=== PATIENT | male | born 1950 | race Caucasian/White ===

== ENCOUNTER 2016-12-10 12:28 | Emergency (ER) | payer BC, OTHER ==
[~2016-12-10 12:28] MED LIST: 1-ME1LIQ PO; CITA20TA4 PO; HYDR12.56 PO
[2016-12-10 12:31] VITALS: BP 146/93; PULSE 89; RESP 16; TEMP 98.8; O2SAT 99
[2016-12-10] MEDS ORDERED: ASPI325T PO (12:43)
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
--- NOTE | 2016-12-10 13:42 | RADHPO ---
EXAM DATE/TIME: 12/10/2016 13:28 [facility] COMPARISON: No previous studies available for comparison. INDICATIONS : Left lower leg pain and swelling post fall one week ago. MEDICAL HISTORY : None. SURGICAL HISTORY : None. ENCOUNTER: Initial ACUITY: 1 week PAIN SCORE: 6/10 LOCATION: Left tibia/fibula. FINDINGS: Two views of the left leg demonstrate no fracture or dislocation. Mineralization is within normal arambula its. No soft tissue abnormality or radiopaque foreign body is identified. CONCLUSION: No acute abnormality is identified. Darin Blackwell MD on December 10, 2016 at 13:40 Board Certified Radiologist. This report was verified electronically.
[2016-12-10] MEDS ORDERED: TRAM50TA PO (14:22)
== END 2016-12-10 14:28 | disposition home or self-care (01) ==
LOC: PHEFT 12:28
DX: S80.12XA Contusion of left lower leg, initial encounter (principal); M10.9 Gout, unspecified; Z72.0 Tobacco use; Z79.82 Long term (current) use of aspirin; W18.39XA Other fall on same level, initial encounter; Y93.89 Activity, other specified; Y92.9 Unspecified place or not applicable; Y99.8 Other external cause status; W18.09XA Striking against other object with subsequent fall, initial encounter
CPT/HCPCS: 73590; 99283; E0113

== ENCOUNTER 2017-05-02 23:37 | Inpatient (IN) | payer OTHER ==
[~2017-05-02] VITALS: Ht 177.8 cm; Wt 86.7 kg
[~2017-05-02 23:37] MED LIST changes: -1-ME1LIQ PO; +ASPI325T PO; -CITA20TA4 PO; -HYDR12.56 PO; +TRAM50TA PO
[2017-05-02] MEDS ORDERED: GABA100C4 PO (23:52)
[2017-05-02 23:53] VITALS: BP 151/90; PULSE 83; RESP 14; TEMP 97.8; O2SAT 98
[2017-05-03] VITALS (14 sets, daily range): BP systolic 122–154; BP diastolic 71–89; PULSE 70–92; RESP 12–21; TEMP 97.7–99.7; O2SAT 93–96
--- NOTE | 2017-05-03 00:16 | PD ---
HPI Chief Complaint: Syncope/Near-Syncope Time Seen by Provider: 00:01 Travel History International Travel<30 days: No Contact w/Intl Traveler<30days: No Traveled to known affect area: No History of Present Illness HPI The patient is a 66-year-old male that apparently was drinking beer heavily at [facility]. He does remember falling but apparently he fell and had a syncopal spell. He denies any specific pain anywhere except his mid occiput where he hit his head on concrete when he fell. PFSH Past Medical History Depression: Yes Diminished Hearing: No Gout: Yes (HX OF GOUT R.TOE) Kidney Stones: Yes Immunizations Current: Yes Past Surgical History Other Surgery: Yes (CYST REMOVAL) Social History Alcohol Use: Yes (OCC) Tobacco Use: Yes (3-4 CIGARS PER DAY) Substance Use: Yes (MJ OCC) Allergies-Medications (Allergen,Severity, Reaction): Coded Allergies: No Known Allergies (Verified , 05/02/17) Reported Meds & Prescriptions Reported Meds & Active Scripts Active Reported Gabapentin 100 Mg Cap 100 Mg PO BID Aspirin 325 Mg Tab 325 Mg PO DAILY Review of Systems Except as stated in HPI: all other systems reviewed are Neg Physical Exam Narrative GENERAL: The patient smells of beer but answers questions quickly and appropriately and and is cooperative. His vital signs show blood pressure 151/ 90 but are otherwise normal. The patient does not know where he is. SKIN: Focused skin assessment warm/dry. HEAD: There is a small contusion in the mid occiput without any associated skull deformity.. Normocephalic. Neither raccoon eyes or goodwin sign is present. EYES: Pupils equal and round. No scleral icterus. No injection or drainage. ENT: No nasal bleeding or discharge. Mucous membranes pink and moist. There is no hemotympanum present. NECK: Trachea midline. No JVD. CARDIOVASCULAR: Regular rate and rhythm. No murmur appreciated. RESPIRATORY: No accessory muscle use. Clear to auscultation. Breath sounds equal bilaterally. GASTROINTESTINAL: Abdomen soft, non-tender, nondistended. Hepatic and splenic margins not palpable. MUSCULOSKELETAL: No obvious deformities. No clubbing. No cyanosis. No edema. NEUROLOGICAL: Awake and alert. No obvious cranial nerve deficits. Motor grossly within normal limits. Normal speech. PSYCHIATRIC: Appropriate mood and affect; insight and judgment normal. Data Data Last Documented VS Vital Signs Date Time Temp Pulse Resp B/P (MAP) Pulse Ox O2 Delivery O2 Flow Rate FiO2 05/02/17 23:53 97.8 83 14 151/90 (110) 98 Orders Orders Complete Blood Count With Diff (05/03/17 00:) Comprehensive Metabolic Panel (05/03/17:) Urinalysis - C+S If Indicated (05/03/17 00:) Ct Brain W/O Iv Contrast(Rout) (05/03/17 00:) Drug Screen, Random Urine (05/03/17:) Alcohol (Ethanol) (05/03/17:) Ct Cerv Spine W/O Contrast (05/03/17:) Electrocardiogram (05/03/17:) Magnesium (Mg) (05/03/17:19) Troponin I (05/03/17:) Prothrombin Time / Inr (Pt) (05/03/17:21) Act Partial Throm Time (Ptt) (05/03/17:21) Act Partial Throm Time (Ptt) (05/03/17 00:22) Admit Order (Ed Use Only) (05/03/17 00:28) Labs Laboratory Tests Test 05/03/17: MDM Medical Decision Making Medical Screen Exam Complete: Yes Emergency Medical Condition: Yes Medical Record Reviewed: Yes Interpretation(s) The CT brain shows left orbital frontal and right cerebellar contusion along with subarachnoid hemorrhage and small left-sided subdural hematoma. Also noted is a nondisplaced fracture of the occipital bone to the right of midline. There is no evidence of herniation or mass effect. Differential Diagnosis Alcohol intoxication, concussion, cardiac syncope Narrative Course I discussed the patient with Dr. Birmingham, the patient is transferred to the ICU at [facility] and admitted to him. The patient has multiple contusions along with nondisplaced fracture of the simple bone, small subarachnoid hemorrhage and small left-sided subdural hematoma. Physician Communication Physician Communication I discussed the patient with Dr. Birmingham, the patient is admitted to him and the patient will go to the [facility] at [place]. Diagnosis Primary Impression: Subarachnoid hemorrhage after traumatic injury without open intracranial wound , with prolonged loss of consciousness and return to pre-existing level of consciousness Additional Impressions: Cerebral contusion Subdural hematoma Admitting Information Admitting Physician Requests: Admit Keyur Tan MD May 03, 2017 00:16
--- NOTE | 2017-05-03 00:43 | RADRPT ---
EXAM DATE/TIME: 05/03/2017 00:14 [facility] COMPARISON: No previous studies available for comparison. INDICATIONS : Trauma, fall. RADIATION DOSE: 62.64 CTDIvol (mGy) MEDICAL HISTORY : Non-responsive. SURGICAL HISTORY : Non-responsive. ENCOUNTER: Initial ACUITY: 1 day PAIN SCALE: 8/10 LOCATION: cranial TECHNIQUE: Multiple contiguous axial images were obtained of the head. Using automated exposure control and adj ustment of the mA and/or kV according to patient size, radiation dose was kept as low as reasonably a chievable to obtain optimal diagnostic quality images. DICOM format image data is available electro nically for review and comparison. FINDINGS: There is left orbital frontal contusion with subarachnoid hemorrhage in the left side of the sylvian fissure. Small subdural hematomas present left frontal region measuring 5 mm. There is a contusion in the right cerebellar hemisphere measuring 10 mm. Nondisplaced fracture of the occipital bone to the right of midline is present. There are no signs of herniation. CONCLUSION: 1. Left orbital frontal and right cerebellar contusion 2. Subarachnoid hemorrhage 3. Small left-sided subdural hematoma Phillip Torres MD on May 03, 2017 at 0:23 Board Certified Radiologist. This report was verified electronically.
--- NOTE | 2017-05-03 00:48 | RADRPT ---
EXAM DATE/TIME: 05/03/2017 00:14 [facility] COMPARISON: No previous studies available for comparison. INDICATIONS : Trauma, fall. RADIATION DOSE: 25.64 CTDIvol (mGy) MEDICAL HISTORY : Non-responsive. SURGICAL HISTORY : Non-responsive. ENCOUNTER: Initial ACUITY: 1 day PAIN SCALE: 0/10 LOCATION: neck TECHNIQUE: Volumetric scanning of the cervical spine was performed. Multiplanar reconstructions in the sagittal, coronal and oblique axial planes were performed. Using automated exposure control and adjustment o f the mA and/or kV according to patient size, radiation dose was kept as low as reasonably achievable to obtain optimal diagnostic quality images. DICOM format image data is available electronically f or review and comparison. FINDINGS: Sagittal images demonstrate normal vertebral body alignment and curvature. The odontoid is intact. Th e occipital condyles and lateral masses of C1 are intact. Axial images were performed from C2-C3 to C7-T1. There is multilevel disc space narrowing and marginal osteophyte formation maximal at C4-C5. There is osteorathritis involving the atlantoaxial joint with sclerosis and osteophyte formation. Non displaced fracture of the right occipital bone is identified C2-C3: There is osteophytic ridging along the posterior aspect of vertebral body. A small central protrusion is present impinging not significantly impinging on the thecal sac. The neural foramina are clear bi laterally. C3-C4: There is uncovertebral joint hypertrophy on left side. There is mild left sided neural foraminal narr owing. There is no significant spinal canal stenosis. C4-C5: There is osteophytic ridging along the posterior aspect of vertebral body. There is uncovertebral ayla nt hypertrophy on the right side. There is severe neural foraminal narrowing on the right. C5-C6: There is mild diffuse annular bulge of the disc. The neural foramina are clear bilaterally. There is no significant spinal canal stenosis. C6-C7: There is osteophytic ridging asymmetric to the left. There is no significant spinal canal stenosis. T he neural foramina are clear bilaterally. C7-T1: There is no evidence of disc protrusion or spinal canal stenosis. There is mild facet arthritis bilat erally. CONCLUSION: 1. Moderate degenerative changes as described above. There is no evidence of acute fracture. 2. Nondisplaced occipital bone fracture Phillip Torres MD on May 03, 2017 at 0:42 Board Certified Radiologist. This report was verified electronically.
[2017-05-03 00:51] LABS: CHLORIDE 103 MEQ/L (98-107); SODIUM (NA) 140 MEQ/L (136-145)
[2017-05-03 00:53] LABS: MAGNESIUM 2.4 MG/DL (1.5-2.5)
[2017-05-03 00:54] LABS: CALCIUM 8.8 MG/DL (8.5-10.1)
[2017-05-03 00:55] LABS: BICARBONATE 26.5 MEQ/L (21.0-32.0); BLOOD UREA NITROGEN 15 MG/DL (7-18); GLUCOSE,RANDOM 94 MG/DL (74-106)
[2017-05-03 00:57] LABS: BASOPHIL # 0.1 TH/MM3 (0-0.2); BASOPHIL % 0.7 % (0.0-2.0); EOSINOPHIL # 0.1 TH/MM3 (0-0.4); EOSINOPHIL % 1.3 % (0.0-4.0); HEMATOCRIT 47.6 % (39.0-51.0); HEMOGLOBIN 16.3 GM/DL (13.0-17.0); LYMPH % 31.9 % (9.0-44.0); LYMPHOCYTE # 2.8 TH/MM3 (1.0-4.8); MEAN CORPUSCULAR HEMOGLOBIN 32.3 PG (27.0-34.0); MEAN CORPUSCULAR HGB CONC 34.3 % (32.0-36.0); MEAN PLATELET VOLUME 10.4 FL (7.0-11.0); MONOCYTE # 0.7 TH/MM3 (0-0.9); NEUT % 58.1 % (16.0-70.0); PLATELET COUNT 186 TH/MM3 (150-450); RED BLOOD COUNT 5.06 MIL/MM3 (4.50-5.90); WHITE BLOOD COUNT 8.7 TH/MM3 (4.0-11.0)
[2017-05-03 00:58] LABS: ALT (GPT) 34 U/L (12-78); AST (GOT) 19 U/L (15-37); GLOMERULAR FILTRATION RATE 67 ML/MIN (>89)
[2017-05-03 00:59] LABS: TOTAL BILIRUBIN ADULT 0.6 MG/DL (0.2-1.0); TOTAL PROTEIN 7.4 GM/DL (6.4-8.2)
[2017-05-03 01:00] LABS: INTERNATIONAL NORMALIZED RATIO 1.1 RATIO; PROTHROMBIN TIME - PATIENT 11.7 SEC (9.8-11.6)
[2017-05-03 01:01] LABS: ALKALINE PHOSPHATASE 109 U/L (45-117); TROPONIN I LESS THAN 0.02 NG/ML (0.02-0.05)
[2017-05-03] MEDS ORDERED: LORazepam 2 MG/ML VIAL IV PUSH PRN (02:00)
[2017-05-03] MEDS ORDERED: MAGNESIUM HYDROXIDE SUSP 30 ML CUP PO PRN (02:00)
[2017-05-03] MEDS ORDERED: MENTHOL LOZENGE BUCCAL PRN (02:00)
[2017-05-03] MEDS ORDERED: MAGNESIUM SULFATE INJ 2 GM in SODIUM CHLORIDE 0.9% INJ 100 ML IV PRN (02:00)
[2017-05-03] MEDS ORDERED: PROMETHAZINE INJ 25 MG/ML VIAL IM PRN (02:00)
[2017-05-03] MEDS ORDERED: SODIUM CHLORIDE 0.9% FLUSH 10 ML FLUSH IV FLUSH PRN (02:00)
[2017-05-03] MEDS ORDERED: ALUMINUM/MAGNESIUM/SIMETH 30 ML CUP PO PRN (02:00)
[2017-05-03] MEDS ORDERED: ZOLPIDEM TARTRATE 5 MG TAB PO PRN (02:00)
[2017-05-03] MEDS ORDERED: RESP: ALBUTEROL 2.5 MG/3 ML NEB (PRN) NEB (02:00)
[2017-05-03] MEDS ORDERED: POTASSIUM CHLOR 20 MEQ PREMIX 100 ML IV PRN (02:00)
[2017-05-03] MEDS ORDERED: CALCIUM GLUCONATE INJ 1 GM in SODIUM CHLORIDE 0.9% INJ 100 ML IV PRN (02:00)
[2017-05-03] MEDS ORDERED: POTASSIUM CHLORIDE 10 MEQ CONTROLLED RELEASE TAB PO ONE (02:15)
[2017-05-03] MEDS: ACETAMINOPHEN/HYDROcodone 325 MG/10 MG TAB PO PRN ×2 (02:21→21:33)
[2017-05-03] MEDS: ONDANSETRON HCL 4 MG/2 ML VIAL IV PUSH PRN (02:27)
[2017-05-03] MEDS: MORPHINE SULFATE 4 MG/ML INJ IV PUSH PRN ×3 (05:08→18:51)
[2017-05-03] MEDS: PANTOPRAZOLE SOD 40 MG DELAYED RELEASE TAB PO SCH (08:58)
[2017-05-03] MEDS: GABAPENTIN 100 MG CAP PO SCH ×2 (08:58→21:23)
[2017-05-03] MEDS: levETIRAcetam 500 MG TAB PO SCH ×2 (08:58→21:23)
[2017-05-03] MEDS: DOCUSATE SODIUM 100 MG CAP PO SCH ×2 (08:58→21:00)
[2017-05-03] MEDS: SODIUM CHLORIDE 0.9% FLUSH 10 ML FLUSH IV FLUSH SCH ×2 (09:00→21:23)
--- NOTE | 2017-05-03 10:00 | RADRPT ---
EXAM DATE/TIME: 05/03/2017 09:29 [facility] COMPARISON: CT BRAIN W/O CONTRAST, May 03, 2017, 0:14. INDICATIONS : Follow up for bleed. RADIATION DOSE: 56.35 CTDIvol (mGy) MEDICAL HISTORY : Hypertension. SURGICAL HISTORY : None. ENCOUNTER: Subsequent ACUITY: 1 day PAIN SCALE: 0/10 LOCATION: cranial TECHNIQUE: Multiple contiguous axial images were obtained of the head. Using automated exposure control and adj ustment of the mA and/or kV according to patient size, radiation dose was kept as low as reasonably a chievable to obtain optimal diagnostic quality images. DICOM format image data is available electro nically for review and comparison. FINDINGS: Today's exam is compared to the prior study. There continues to be a focal hemorrhagic contusion in t he posterior right cerebellar hemisphere. This is stable compared to the prior exam. There appears to be a small right-sided subdural hematoma in the right posterior fossa adjacent to the right temporal bone. This is stable compared to the prior study. The fourth ventricle is normal in size and midline in position. No significant change with the left-sided subdural hematoma along the left frontal lobe with a 6 mm separation. There continues to be hemorrhagic contusions involving the left frontal and left parietal lobe. There is evidence of subarachnoid hemorrhage which appears to be stable. There ap pears to be a new focal hemorrhagic contusion in the left insula. Otherwise, no other new areas of he morrhage are demonstrated. The ventricles are normal in size and midline in position. The calvarium i s stable. CONCLUSION: 1. New small hemorrhagic contusion is now seen in the left insula area. 2. Otherwise, no other new or significant changes compared to the prior exam of 05/03/2017. 3. Stable hemorrhagic contusions in the posterior right cerebellar hemisphere, left frontal lobe and left parietal area. 4. Stable left frontal subdural hematoma with 6 mm of separation. 5. No significant mass effect or midline shift. Keyur Jimenez MD on May 03, 2017 at 9:53 Board Certified Radiologist. This report was verified electronically.
[2017-05-03 12:14] LABS: BILIRUBIN, URINE NEG (NEG); BLOOD, URINE NEG (NEG); GLUCOSE,URINE 70 mg/dL (NEG); KETONE, URINE 80 mg/dL (NEG); MUCUS URINE MOD /lpf (OCC); NITRITE,URINE NEG (NEG); PH, URINE 5.5 (5.0-8.5); SQUAMOUS EPITHELIAL CELL URINE 1 /hpf (0-5); URINE COLOR YELLOW (YELLW/STRAW); URINE LEUKOCYTE ESTERASE NEG (NEG)
--- NOTE | 2017-05-03 12:33 | EKG ---
Date Performed: 05/03/2017 Time Performed: 00:35:46 PTAGE: 66 years EKG: Normal Sinus rhythm Left atrial abnormality Baseline artifact obscures the ST segments in the lateral leads, so unable t o determine if it is unchanged from the prior tracing ABNORMAL ECG PREVIOUS TRACING : 05/08/2014 22.03 Otherwise, the other leads are unchanged from the prior tra cing. DOCTOR: Emeterio Melchor Interpretating Date/Time 05/03/2017 12:31:58
--- NOTE | 2017-05-03 14:30 | RADRPT ---
EXAM DATE/TIME: 05/03/2017 13:24 [facility] COMPARISON: No previous studies available for comparison. INDICATIONS : Syncope. MEDICAL HISTORY : Hypertension. Renal calculi. Syncope. Gout. Depression. Substance use. Tobacco use. SURGICAL HISTORY : Cyst removal. ENCOUNTER: Initial ACUITY: 1 day PAIN SCORE: 0/10 LOCATION: Bilateral neck PEAK SYSTOLIC VELOCITIES (cm/sec): ICA/CCA RATIO: Right: 0.6 Left: 0.6 ICA: Right: 75 Left: 78 CCA: Right: 118 Left: 124 ECA: Right: 98 Left: 98 VERTEBRAL: Right: 58 antegrade Left: 54 antegrade Elevated flow velocities and ICA/CCA ratios have been found to correlate with increased degrees of vessel stenosis, calculated as percentage of diameter relative to a normal segment of distal ICA/CCA FINDINGS: RIGHT CAROTID: No significant stenosis is visualized. The waveforms are within normal limits. LEFT CAROTID: No significant stenosis is visualized. The waveforms are within normal limits. VERTEBRAL ARTERIES: Antegrade flow is seen in both vertebral arteries. MISCELLANEOUS: None. CONCLUSION: Normal examination for a patient of this age. Keyur Jimenez MD on May 03, 2017 at 14:28 Board Certified Radiologist. This report was verified electronically.
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
--- NOTE | 2017-05-03 17:56 | ECHRPT ---
Indication: Syncope and collapse CONCLUSIONS The left ventricular systolic function is normal with an estimated ejection fraction in the range of 55-60%. Wall thickness is measured at the upper limits of normal. Normal left ventricular size. BP: 122 / 71 HR: 82 Rhythm: Sinus MEASUREMENTS (Male / Female) Normal Values Technical Quality:Good 2D ECHO LV Diastolic Diameter PLAX 4.6 cm 4.2 - 5.9 / 3.9 - 5.3 cm LV Systolic Diameter PLAX 3.4 cm IVS Diastolic Thickness 1.0 cm 0.6 - 1.0 / 0.6 - 0.9 cm LVPW Diastolic Thickness 1.0 cm 0.6 - 1.0 / 0.6 - 0.9 cm LV Relative Wall Thickness 0.4 LVOT Diameter 2.1 cm M-MODE Aortic Root Diameter MM 3.2 cm LA Systolic Diameter MM 3.6 cm LA Ao Ratio MM 1.1 AV Cusp Separation MM 2.3 cm DOPPLER AV Peak Velocity 160.0 cm/s AV Peak Gradient 10.2 mmHg LVOT Peak Velocity 88.8 cm/s LVOT Peak Gradient 3.2 mmHg AV Area Cont Eq pk 1.9 cm Mitral E Point Velocity 79.0 cm/s Mitral A Point Velocity 76.0 cm/s Mitral E to A Ratio 1.0 LV E' Lateral Velocity 7.5 cm/s Mitral E to LV E' Lateral Ratio 10.5 LV E' Septal Velocity 6.0 cm/s Mitral E to LV E' Septal Ratio 13.1 PV Peak Velocity 117.0 cm/s PV Peak Gradient 5.5 mmHg FINDINGS LEFT VENTRICLE The left ventricular systolic function is normal with an estimated ejection fraction in the range of 55-60%. Wall thickness is measured at the upper limits of normal. Normal left ventricular size. RIGHT VENTRICLE Normal right ventricular size and systolic function. LEFT ATRIUM The left atrial size is normal. RIGHT ATRIUM The right atrial size is normal. ATRIAL SEPTUM Normal atrial septal thickness without atrial level shunting by limited color doppler interrogation. AORTA The aortic root and proximal ascending aorta are normal in size on limited imaging. MITRAL VALVE Structurally normal mitral valve. No mitral valve stenosis or regurgitation. AORTIC VALVE Trileaflet aortic valve. No aortic valve stenosis or regurgitation. TRICUSPID VALVE Structurally normal tricuspid valve. No tricuspid valve stenosis or regurgitation. PULMONARY VALVE The pulmonary valve is not well visualized. VESSELS The inferior vena cava is normal in size. PERICARDIUM No pericardial effusion. Mauricio Adam MD, FACC (Electronically Signed) Final Date:03 May 2017 17:56
[2017-05-03] MEDS: BACITRACIN TOP OINT 15 GM TUBE TOP SCH (21:24)
[2017-05-04] VITALS (11 sets, daily range): BP systolic 127–165; BP diastolic 65–79; PULSE 58–78; RESP 11–17; TEMP 98.2–98.6; O2SAT 92–96
[2017-05-04] MEDS: ACETAMINOPHEN/HYDROcodone 325 MG/10 MG TAB PO PRN ×2 (04:49→22:20)
[2017-05-04 05:08] LABS: HEMATOCRIT 46.7 % (39.0-51.0); HEMOGLOBIN 16.1 GM/DL (13.0-17.0); MEAN CELL VOLUME 94.1 FL (80.0-100.0); MEAN CORPUSCULAR HEMOGLOBIN 32.5 PG (27.0-34.0); MEAN CORPUSCULAR HGB CONC 34.6 % (32.0-36.0); MEAN PLATELET VOLUME 9.8 FL (7.0-11.0); PLATELET COUNT 174 TH/MM3 (150-450); RED BLOOD COUNT 4.96 MIL/MM3 (4.50-5.90); RED CELL DISTRIBUTION WIDTH 13.8 % (11.6-17.2); WHITE BLOOD COUNT 13.4 TH/MM3 (4.0-11.0)
[2017-05-04 05:30] LABS: BICARBONATE 26.6 MEQ/L (21.0-32.0); CALCIUM 8.7 MG/DL (8.5-10.1); CREATININE 0.98 MG/DL (0.60-1.30)
[2017-05-04] MEDS: levETIRAcetam 500 MG TAB PO SCH ×2 (08:42→22:19)
[2017-05-04] MEDS: DOCUSATE SODIUM 100 MG CAP PO SCH ×2 (08:42→22:19)
[2017-05-04] MEDS: SODIUM CHLORIDE 0.9% FLUSH 10 ML FLUSH IV FLUSH SCH ×2 (08:43→22:19)
[2017-05-04] MEDS: GABAPENTIN 100 MG CAP PO SCH ×2 (08:43→22:20)
[2017-05-04] MEDS: PANTOPRAZOLE SOD 40 MG DELAYED RELEASE TAB PO SCH (08:43)
[2017-05-04] MEDS: BACITRACIN TOP OINT 15 GM TUBE TOP SCH ×2 (08:50→22:20)
--- NOTE | 2017-05-04 09:06 | HHI.NSPN ---
(Marc Wilhelm) History Chief Complaint: No complaints. TBI after syncopal episode. (Marc Wilhelm) Interval History 66-year-old gentleman who presented to [facility] emergency room apparently he was drinking beer and relates that he passed out and fell and struck his head on concrete floor. Complains of headache although at this point denies any nausea or vomiting, double vision, or blurred vision. Chronic neck discomfort which is not worse. CT scan of the head obtained initially around midnight ratios the right small cerebellar hemisphere contusion along with multiple left frontal polar area contusions and traumatic subarachnoid hemorrhage in the frontal aspect and lateral Sylvian fissure aspect. He also has a nondisplaced right occipital bone fracture. CT of the cervical spine reveals extensive degenerate changes without any fractures. He was transfer to [facility] and has been monitored and neurologically remained stable. A followup CT scan this morning reveals progression of the contusions involving the left frontal lobe along with a right cerebellar hemisphere and left the insula with a stable left frontal polar 6 mm subdural without any mass effect or midline shift. 05/04: Pt awake and alert. Denies headache, nausea, vomiting, chest pain, sob , weakness. Pt agitated this morning. Pt and states he didn't drink enough to pass out and that he has had 1 near syncopal episode and 2 syncopal episodes in the last year and has had evaluation at [facility] in [place] and states nothing was found although doesn't recall seeing a Cheese Cutter and states he never followed up with anyone. He states he doesn't see a pcp. (Marc Wilhelm) Review of Systems General: Negative for: fever, chills, insomnia Respiratory: Negative for: shortness of breath, cough, sputum Cardiovascular: Negative for: chest pain Gastrointestinal: Negative for: nausea, vomitting, diarrhea, constipation ( Marc Wilhelm) Exam Results Vital Signs Date Time Temp Pulse Resp B/P (MAP) Pulse Ox O2 Delivery O2 Flow Rate FiO2 05/04/17 06:00 73 1020/17 04:00 98.6 14 165/77 (106) 95 05/03/17 19:58 21 05/03/17 19:00 Room Air Intake and Output 05/04/17 05/04/17 05/05/17 08:00 16:00 00:00 Intake Total 120 ml Output Total 400 ml Balance -280 ml (Marc Wilhelm) Physical Examination Resp: CTA bilaterally Heart: NSR no murmurs Abd: Soft positive bs skin: No cyanosis or erythema Muscle: Moves all 4 extremities symmetrically 5/5 strength. Neuro: Pt awake and alert. Pupils 3mm bilaterally. Speech clear and appropriate. Follows commands well. Sensation intact to light touch in face and extremities. EOMs intact. (Marc Wilhelm) Lab, Micro, Other Results Last Impressions Head CT 05/03/17 0900 Signed Impressions: Service Date/Time: April 09:29 - CONCLUSION: 1. New small hemorrhagic contusion is now seen in the left insula area. 2. Otherwise, no other new or significant changes compared to the prior exam of 05/03/2017. 3. Stable hemorrhagic contusions in the posterior right cerebellar hemisphere, left frontal lobe and left parietal area. 4. Stable left frontal subdural hematoma with 6 mm of separation. 5. No significant mass effect or midline shift. Keyur Jimenez MD Cervical Spine CT 05/03/17 0001 Signed Impressions: Service Date/Time: April 00:14 - CONCLUSION: 1. Moderate degenerative changes as described above. There is no evidence of acute fracture. 2. Nondisplaced occipital bone fracture Phillip Torres MD Carotid Artery Ultrasound 05/03/17 0000 Signed Impressions: Service Date/Time: April 13:24 - CONCLUSION: Normal examination for a patient of this age. Keyur Jimenez MD Laboratory Tests Test 05/04/17 04:42 White Blood Count 13.4 TH/MM3 Red Blood Count 4.96 MIL/MM3 Hemoglobin 16.1 GM/DL Hematocrit 46.7 % Mean Corpuscular Volume 94.1 FL Mean Corpuscular Hemoglobin 32.5 PG Mean Corpuscular Hemoglobin Concent 34.6 % Red Cell Distribution Width 13.8 % Platelet Count 174 TH/MM3 Mean Platelet Volume 9.8 FL Blood Urea Nitrogen 14 MG/DL Creatinine 0.98 MG/DL Random Glucose 115 MG/DL Calcium Level 8.7 MG/DL Sodium Level 138 MEQ/L Potassium Level 4.1 MEQ/L Chloride Level 105 MEQ/L Carbon Dioxide Level 26.6 MEQ/L Anion Gap 6 MEQ/L Estimat Glomerular Filtration Rate 77 ML/MIN (Marc Wilhelm) Medical Decision Making Impression and Plan 1. 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 There is a nondisplaced right occipital skull bone fracture also. There is a slight progression of these contusions as a hemorrhage in the followup CT scan but again without mass effect. 2. It us unclear whether he had a near-syncopal episode or he fell because of the intoxication and then suffered from this traumatic brain injury. Pts states he has had 1 near syncopal episode and 2 syncopal episodes. She states he was evaluated before at [facility] and had a workup but nothing was found per pt and his . She is requesting a Cardiology evaluation. PLAN Discussed with pt and extensively. We have ordered a cardiac echo, carotid ultrasound and a medical consult. We will also consult Cardiology. We will continue with Neuro checks. (Marc Wilhelm) Attending Statement The exam, history, and the medical decision-making described in the above note were completed with the assistance of the mid-level provider. I reviewed and agree with the findings presented. I attest that I had a [id number] encounter with the patient on the same day, and personally performed and documented my assessment and findings in the medical record. Less confused today and more interactive according to the . She is concerned about recurrent syncopal episodes although also relates to me this always happens when he combines alcohol with marijuana use. We will consult cardiology for their opinion. Increase activity status as tolerated with physical therapy safety evaluation. (Wil Birmingham MD) Marc Wilhelm May 04, 2017 09:06 Wil Birmingham MD May 04, 2017 10:02
--- NOTE | 2017-05-04 10:41 | PD.CONS ---
HPI Consult Requested By Primary Care Physician No Primary Care Physician History of Present Illness 66-year-old M who presented to [facility] emergency room after a syncopal episode. Patient does not rememeber event, but according to chart he was drinking beer and passed out and struck his head on concrete floor. CT scan of the head obtained showed a right small cerebellar hemisphere contusion along with multiple left frontal polar area contusions and traumatic subarachnoid hemorrhage in the frontal aspect and lateral Sylvian fissure aspect. He also had a nondisplaced right occipital bone fracture. He was transfer to [facility] Int[facility]. A followup CT scan this morning reveals progression of the contusions involving the left frontal lobe along with a right cerebellar hemisphere and left the insula with a stable left frontal polar 6 mm subdural without any mass effect or midline shift. Cardiology consulted for syncope evalaution. HE denies chest pain, palpitations , PND, leg swelling. He was admited on [place] ~4-5months ago with a similar episode. Cardiac work up at that time negative. Review of Systems Consitutional: DENIES: Fatigue, Fever, Chills, Weight gain, Weight loss Eyes: DENIES: Amaurosis Fugax, Change in vision HEENT: DENIES: Lightheadedness, Change in hearing Respiratory: DENIES: See HPI, Cough, Snoring, Shortness of breath, Wheezing, Sputum production Cardiovascular: DENIES: See HPI, Chest pain, Palpitations, Syncope, Tachycardia Gastrointestinal: DENIES: Nausea, Vomiting, Change in bowel habits, Reflux, Bloody stools, Melena Genitourinary: DENIES: Urinary incontinence, Difficulty voiding Integumentary: DENIES: Rash Neurologic: DENIES: Tingling or numbness, Memory problems, Poor Balance, Stroke symptoms Musculoskeletal: DENIES: Joint pain, Muscle pain, Limited range of motion, Back pain Psychiatric: DENIES: Anxiety, Depression, Sleep disturbances Hematologic: DENIES: Bruising tendencies, Bleeding tendencies Endocrine: DENIES: Weight gain, Weight loss, Thyroid disease Past Family Social History Allergies: Coded Allergies: No Known Allergies (Verified , 05/02/17) Past Medical History 1. Depression 2. Gout 3. Kidney stones. Reported Medications Reported Meds & Active Scripts Active Reported Gabapentin 100 Mg Cap 100 Mg PO BID Aspirin 325 Mg Tab 325 Mg PO DAILY Active Ordered Medications Current Medications Medications (Trade) Dose Ordered Sig/Mayra Route Start Time Stop Time Status Last Admin (NS Flush) 2 ml UNSCH PRN IV FLUSH 05/03/17 02:00 (NS Flush) 2 ml BID IV FLUSH 05/03/17 09:00 05/04/17 08:43 (Keppra) 500 mg Q12H PO 05/03/17 09:00 05/04/17 08:42 (Ativan Inj) 1 mg Q1H PRN IV PUSH 05/03/17 02:00 (Colace) 100 mg BID PO 05/03/17 09:00 05/04/17 08:42 (Milk Of Magnesia Liq) 30 ml DAILY PRN PO 05/03/17 02:00 (Mag-Al Plus Susp Liq) 30 ml Q6H PRN PO 05/03/17 02:00 (Protonix) 40 mg DAILY PO 05/03/17 09:00 05/04/17 08:43 (Zofran Inj) 4 mg Q6H PRN IV PUSH 05/03/17 02:00 05/03/17 02:27 (Phenergan Inj) 25 mg Q4H PRN IM 05/03/17 02:00 05/03/17 05:11 Calcium Gluconate 1 gm/Sodium Chloride 110 ml @ 110 mls/hr UNSCH PRN IV 05/03/17 02:00 Potassium Chloride 100 ml @ 50 mls/hr UNSCH PRN IV 05/03/17 02:00 Magnesium Sulfate 2 gm/Sodium Chloride 104 ml @ 100 mls/hr UNSCH PRN IV 05/03/17 02:00 (Traer 10-325 Mg) 1 tab Q4H PRN PO 05/03/17 02:00 05/03/17 02:21 (Traer 10-325 Mg) 2 tab Q4H PRN PO 05/03/17 02:00 05/04/17 04:49 (Morphine Inj) 2 mg Q2H PRN IV PUSH 05/03/17 02:00 05/03/17 18:51 (Trandate Inj) 10 mg Q1H PRN IV PUSH 05/03/17 02:00 (Catapres) 0.1 mg Q6H PRN PO 05/03/17 02:00 (Tylenol) 650 mg Q4H PRN PO 05/03/17 02:00 (Baciguent Oint) 1 applic BID TOP 05/03/17 09:00 05/04/17 08:50 (Augusta Chasidy) 1 lozenge UNSCH PRN BUCCAL 05/03/17 02:00 (Ambien) 5 mg HS PRN PO 05/03/17 02:00 (Albuterol Neb) 2.5 mg Q4HR NEB PRN NEB 05/03/17 02:00 Nicardipine HCl 25 mg/Sodium Chloride 250 ml @ 50 mls/hr TITRATE PRN IV 05/03/17 02:00 (Neurontin) 100 mg BID PO 05/03/17 09:00 05/04/17 08:43 Family History Positive for stroke in the father no history of cancer. Social History He is , he admits to drinking two beers on the week days and about four to five beers on the weekend per day. He smokes three to four cigars per day and marijuana on occasional basis. Physical Exam Vital Signs Vital Signs Date Time Temp Pulse Resp B/P (MAP) Pulse Ox O2 Delivery O2 Flow Rate FiO2 05/04/17 10:00 70 05/04/17 08:00 98.3 69 15 136/74 (94) 92 05/04/17 08:00 69 05/04/17 07:00 93 Room Air 05/04/17 06:00 73 05/04/17 04:00 58 05/04/17 04:00 98.6 58 14 165/77 (106) 95 05/04/17 02:00 71 05/04/17 00:00 98.4 78 16 127/74 (91) 95 05/04/17 00:00 72 05/03/17 22:00 70 05/03/17 20:00 98.3 72 17 149/72 (97) 96 05/03/17 20:00 72 05/03/17 19:58 96 21 05/03/17 19:00 95 Room Air 05/03/17 18:00 73 05/03/17 16:00 72 05/03/17 16:00 99.7 72 12 135/77 (96) 93 05/03/17 14:00 73 05/03/17 12:00 82 05/03/17 12:00 98.2 82 12 122/71 (88) 93 Physical Exam GENERAL: Well-nourished, well-developed patient. SKIN: Warm and dry. HEAD: Normocephalic. EYES: No scleral icterus. No injection or drainage. NECK: Supple, trachea midline. No JVD or lymphadenopathy. CARDIOVASCULAR: Regular rate and rhythm without murmurs, gallops, or rubs. RESPIRATORY: Breath sounds equal bilaterally. No accessory muscle use. GASTROINTESTINAL: Abdomen soft, non-tender, nondistended. EXTREMITIES: No cyanosis, or edema. NEUROLOGICAL: Awake, alert, and oriented x 3. Non-focal. Laboratory Laboratory Tests Test 05/04/17 04:42 White Blood Count 13.4 Red Blood Count 4.96 Hemoglobin 16.1 Hematocrit 46.7 Mean Corpuscular Volume 94.1 Mean Corpuscular Hemoglobin 32.5 Mean Corpuscular Hemoglobin Concent 34.6 Red Cell Distribution Width 13.8 Platelet Count 174 Mean Platelet Volume 9.8 Blood Urea Nitrogen 14 Creatinine 0.98 Random Glucose 115 Calcium Level 8.7 Sodium Level 138 Potassium Level 4.1 Chloride Level 105 Carbon Dioxide Level 26.6 Anion Gap 6 Estimat Glomerular Filtration Rate 77 Result Diagram: 05/04/172 05/04/17 0442 Imaging Last Impressions Head CT 05/03/17 0900 Signed Impressions: Service Date/Time: April 09:29 - CONCLUSION: 1. New small hemorrhagic contusion is now seen in the left insula area. 2. Otherwise, no other new or significant changes compared to the prior exam of 05/03/2017. 3. Stable hemorrhagic contusions in the posterior right cerebellar hemisphere, left frontal lobe and left parietal area. 4. Stable left frontal subdural hematoma with 6 mm of separation. 5. No significant mass effect or midline shift. Keyur Jimenez MD Cervical Spine CT 05/03/17 0001 Signed Impressions: Service Date/Time: April 00:14 - CONCLUSION: 1. Moderate degenerative changes as described above. There is no evidence of acute fracture. 2. Nondisplaced occipital bone fracture Phillip Torres MD Carotid Artery Ultrasound 05/03/17 0000 Signed Impressions: Service Date/Time: April 13:24 - CONCLUSION: Normal examination for a patient of this age. Keyur Jimenez MD Assessment and Plan Problem List: (1) Syncope ICD Codes: R55 - Syncope and collapse Plan: 66 y/o M admitted with syncope sustaining head trauma. Unclear if syncopal episode was due to alcohol the intoxication, neuro or CV. He was evaluated in [facility] in [place] and had a negative cardiac workup. He remains afebrile, hemodynamically stable with no CV complaints. EKG & Telemetry no vidya-tachyarrhythmias. Echocardiogram unremarkable. Recommendations: 1. Medical management for CAD risk factors 2. Lexiscan stress test, if negative d/c home with cardiology follow up and 24hr Holter monitor (2) Traumatic hematoma of left lower leg ICD Codes: S80.12XA - Contusion of left lower leg, initial encounter Status: Acute (3) Cerebral contusion ICD Codes: S06.339A - Contusion and laceration of cerebrum, unspecified, with loss of consciousness of unspecified duration, initial encounter Status: Acute (4) Subdural hematoma ICD Codes: I62.00 - Nontraumatic subdural hemorrhage, unspecified Status: Acute (5) Subarachnoid hemorrhage after traumatic injury without open intracranial wound, with prolonged lossof consciousness and return to pre-existing level of consciousness ICD Codes: S06.6X9A - Traumatic subarachnoid hemorrhage with loss of consciousness of unspecified duration, initial encounter Status: Acute Bladimir Barnes MD May 04, 2017 10:41
[2017-05-05] VITALS (9 sets, daily range): BP systolic 110–150; BP diastolic 53–76; PULSE 50–62; RESP 14–18; TEMP 97.7–98.7; O2SAT 94–100
[2017-05-05] MEDS: BACITRACIN TOP OINT 15 GM TUBE TOP SCH ×2 (09:00→20:09)
[2017-05-05] MEDS: SODIUM CHLORIDE 0.9% FLUSH 10 ML FLUSH IV FLUSH SCH ×2 (09:00→20:08)
[2017-05-05] MEDS: DOCUSATE SODIUM 100 MG CAP PO SCH ×2 (09:00→20:08)
[2017-05-05] MEDS ORDERED: REGADENOSON INJ 0.4 MG/5 ML SYR ONE (10:08)
[2017-05-05] MEDS: PANTOPRAZOLE SOD 40 MG DELAYED RELEASE TAB PO SCH (11:39)
[2017-05-05] MEDS: levETIRAcetam 500 MG TAB PO SCH ×2 (11:39→20:08)
[2017-05-05] MEDS: GABAPENTIN 100 MG CAP PO SCH ×2 (11:39→20:08)
[2017-05-05] MEDS: MORPHINE SULFATE 4 MG/ML INJ IV PUSH PRN (11:40)
[2017-05-05] MEDS: ONDANSETRON HCL 4 MG/2 ML VIAL IV PUSH PRN (11:40)
--- NOTE | 2017-05-05 11:53 | HHI.NSPN ---
(Marc Wilhelm) History Chief Complaint: No complaints. TBI after syncopal episode. (Marc Wilhelm) Interval History 66-year-old gentleman who presented to [facility] emergency room apparently he was drinking beer and relates that he passed out and fell and struck his head on concrete floor. Complains of headache although at this point denies any nausea or vomiting, double vision, or blurred vision. Chronic neck discomfort which is not worse. CT scan of the head obtained initially around midnight ratios the right small cerebellar hemisphere contusion along with multiple left frontal polar area contusions and traumatic subarachnoid hemorrhage in the frontal aspect and lateral Sylvian fissure aspect. He also has a nondisplaced right occipital bone fracture. CT of the cervical spine reveals extensive degenerate changes without any fractures. He was transfer to [facility] and has been monitored and neurologically remained stable. A followup CT scan this morning reveals progression of the contusions involving the left frontal lobe along with a right cerebellar hemisphere and left the insula with a stable left frontal polar 6 mm subdural without any mass effect or midline shift. 05/04: Pt awake and alert. Denies headache, nausea, vomiting, chest pain, sob , weakness. Pt agitated this morning. Pt and states he didn't drink enough to pass out and that he has had 1 near syncopal episode and 2 syncopal episodes in the last year and has had evaluation at [facility] in [place] and states nothing was found although doesn't recall seeing a Rn Lactation Consultant and states he never followed up with anyone. He states he doesn't see a pcp. 05/05: Pt awakens to voice. Complains of headache. No nausea or vomiting. Had stress test this morning. No chest pain or sob. (Marc Wilhelm) Review of Systems General: Negative for: fever, chills, insomnia Respiratory: Negative for: shortness of breath, cough, sputum Cardiovascular: Negative for: chest pain Gastrointestinal: Negative for: nausea, vomitting, diarrhea, constipation ( Marc Wilhelm) Exam Results Vital Signs Date Time Temp Pulse Resp B/P (MAP) Pulse Ox O2 Delivery O2 Flow Rate FiO2 05/05/17 08:00 97.7 55 16 110/53 (72) 94 05/05/17 07:00 Room Air 05/03/17 19:58 21 Intake and Output 05/05/17 05/05/17 05/06/17 08:00 16:00 00:00 Intake Total 240 ml Balance 240 ml (Marc Wilhelm) Physical Examination Resp: CTA bilaterally Heart: NSR no murmurs Abd: Soft positive bs skin: No cyanosis or erythema Muscle: Moves all 4 extremities symmetrically 5/5 strength. Neuro: Pt awakens but complains of headache and prefers his eyes closed currently. Pupils 3mm bilaterally. Speech clear and appropriate. Follows commands well. (Marc Wilhelm) Lab, Micro, Other Results Last Impressions Head CT 05/03/17 0900 Signed Impressions: Service Date/Time: April 09:29 - CONCLUSION: 1. New small hemorrhagic contusion is now seen in the left insula area. 2. Otherwise, no other new or significant changes compared to the prior exam of 05/03/2017. 3. Stable hemorrhagic contusions in the posterior right cerebellar hemisphere, left frontal lobe and left parietal area. 4. Stable left frontal subdural hematoma with 6 mm of separation. 5. No significant mass effect or midline shift. Keyur Jimenez MD Cervical Spine CT 05/03/17 0001 Signed Impressions: Service Date/Time: April 00:14 - CONCLUSION: 1. Moderate degenerative changes as described above. There is no evidence of acute fracture. 2. Nondisplaced occipital bone fracture Phillip Torres MD Carotid Artery Ultrasound 05/03/17 0000 Signed Impressions: Service Date/Time: April 13:24 - CONCLUSION: Normal examination for a patient of this age. Keyur Jimenez MD (Marc Wilhelm) Medical Decision Making Impression and Plan 1. 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 There is a nondisplaced right occipital skull bone fracture also. There is a slight progression of these contusions as a hemorrhage in the followup CT scan but again without mass effect. 2. It us unclear whether he had a near-syncopal episode or he fell because of the intoxication and then suffered from this traumatic brain injury. Pts states he has had 1 near syncopal episode and 2 syncopal episodes. She states he was evaluated before at [facility] in [place] and had a workup but nothing was found per pt and his . She is requesting a Cardiology evaluation. PLAN Continue with pain control. Continue to monitor Neuro exam. (Marc Wilhelm) Attending Statement The exam, history, and the medical decision-making described in the above note were completed with the assistance of the mid-level provider. I reviewed and agree with the findings presented. I attest that I had a [id number] encounter with the patient on the same day, and personally performed and documented my assessment and findings in the medical record. Stable neurologically. Undergoing cardiac w/u for syncope. Discharge when cleared by cardiology. (Wil Birmingham MD) Marc Wilhelm May 05, 2017 11:53 Wil Birmingham MD May 05, 2017 15:32
--- NOTE | 2017-05-05 12:50 | RADRPT ---
EXAM DATE/TIME: 05/05/2017 09:29 [facility] COMPARISON: No previous studies available for comparison. INDICATIONS : Syncope episode. Coronary artery disease. DOSE: 25.6 mCi Tc99m Myoview at stress. 8.5 mCi Tc99m Myoview at rest. 0.4 mg Lexiscan STRESS SYMPTOMS: Shortness of breath. EJECTION FRACTION: 67% MEDICAL HISTORY : + EOTH and Cannibus. SURGICAL HISTORY : ENCOUNTER: Initial ACUITY: 1 day PAIN SCALE: 0/10 LOCATION: chest TECHNIQUE: The patient underwent pharmacologic stress with infusion of prescribed dose. Continuous ECG tracing was monitored during stress. Gated SPECT imaging was performed after stress and conventional SPECT i maging was performed at rest. The examination was performed on a SPECT/CT scanner, both attenuation and non-corrected datasets were reviewed. FINDINGS: DISTRIBUTION: The maximum perfused segment at stress is in the anterior wall. PERFUSION STUDY: There are areas of decreased activity on the stress images compared to the rest images at the apical upper septum, mid septum, and mid inferolateral wall. There is decreased activity at the inferior ape x best seen on the vertical axis views. The difference is in the order of 10-30%. GATED STUDY: There is intact wall motion and thickening without hypokinetic or dyskinetic segments. CONCLUSION: Several areas is suspected mild ischemia in the septum and inferior lateral wall and inferior apex. RISK CATEGORY: Intermediate (1-3% Annual Mortality Rate) Darin Murray MD on May 05, 2017 at 12:43 Board Certified Radiologist. This report was verified electronically.
[2017-05-05] MEDS: ACETAMINOPHEN/HYDROcodone 325 MG/10 MG TAB PO PRN (13:57)
[2017-05-05] MEDS: NS + KCL 20 MEQ INJ 1,000 ML IV SCH (19:42)
[2017-05-06] VITALS (12 sets, daily range): BP systolic 133–177; BP diastolic 72–82; PULSE 47–74; RESP 9–20; TEMP 98–98.7; O2SAT 93–97
[2017-05-06] MEDS: LABETALOL HCL 100 MG/20 ML VIAL IV PUSH PRN ×3 (01:03→09:36)
[2017-05-06] MEDS: cloNIDine HCL 0.1 MG TAB PO PRN ×2 (01:36→13:09)
[2017-05-06] MEDS: ACETAMINOPHEN/HYDROcodone 325 MG/10 MG TAB PO PRN ×4 (01:37→20:46)
[2017-05-06] MEDS: NS + KCL 20 MEQ INJ 1,000 ML IV SCH ×2 (07:15→19:58)
[2017-05-06] MEDS: SODIUM CHLORIDE 0.9% FLUSH 10 ML FLUSH IV FLUSH SCH ×2 (09:00→20:05)
[2017-05-06] MEDS: BACITRACIN TOP OINT 15 GM TUBE TOP SCH ×2 (09:00→20:05)
[2017-05-06] MEDS: levETIRAcetam 500 MG TAB PO SCH ×2 (09:36→20:46)
[2017-05-06] MEDS: GABAPENTIN 100 MG CAP PO SCH ×2 (09:36→20:46)
[2017-05-06] MEDS: DOCUSATE SODIUM 100 MG CAP PO SCH ×2 (09:36→20:43)
[2017-05-06] MEDS: PANTOPRAZOLE SOD 40 MG DELAYED RELEASE TAB PO SCH (09:36)
--- NOTE | 2017-05-06 12:38 | PD.CARD.PN ---
Subjective Subjective Remarks No CV complaints Lexiscan Stress Test results noted\ Confused this am Objective Medications Current Medications Medications (Trade) Dose Ordered Sig/Mayra Route Start Time Stop Time Status Last Admin (NS Flush) 2 ml UNSCH PRN IV FLUSH 05/03/17 02:00 (NS Flush) 2 ml BID IV FLUSH 05/03/17 09:00 05/06/17 09:00 (Keppra) 500 mg Q12H PO 05/03/17 09:00 05/06/17 09:36 (Ativan Inj) 1 mg Q1H PRN IV PUSH 05/03/17 02:00 (Colace) 100 mg BID PO 05/03/17 09:00 05/06/17 09:36 (Milk Of Magnesia Liq) 30 ml DAILY PRN PO 05/03/17 02:00 (Mag-Al Plus Susp Liq) 30 ml Q6H PRN PO 05/03/17 02:00 (Protonix) 40 mg DAILY PO 05/03/17 09:00 05/06/17 09:36 (Zofran Inj) 4 mg Q6H PRN IV PUSH 05/03/17 02:00 05/05/17 11:40 (Phenergan Inj) 25 mg Q4H PRN IM 05/03/17 02:00 05/03/17 05:11 Calcium Gluconate 1 gm/Sodium Chloride 110 ml @ 110 mls/hr UNSCH PRN IV 05/03/17 02:00 Potassium Chloride 100 ml @ 50 mls/hr UNSCH PRN IV 05/03/17 02:00 Magnesium Sulfate 2 gm/Sodium Chloride 104 ml @ 100 mls/hr UNSCH PRN IV 05/03/17 02:00 ([place]son 10-325 Mg) 1 tab Q4H PRN PO 05/03/17 02:00 05/06/17 01:37 ([place]son 10-325 Mg) 2 tab Q4H PRN PO 05/03/17 02:00 05/06/17 10:35 (Morphine Inj) 2 mg Q2H PRN IV PUSH 05/03/17 02:00 05/05/17 11:40 (Trandate Inj) 10 mg Q1H PRN IV PUSH 05/03/17 02:00 05/06/17 09:36 (Catapres) 0.1 mg Q6H PRN PO 05/03/17 02:00 05/06/17 01:36 (Tylenol) 650 mg Q4H PRN PO 05/03/17 02:00 (Baciguent Oint) 1 applic BID TOP 05/03/17 09:00 05/06/17 09:00 ([place] Chasidy) 1 lozenge UNSCH PRN BUCCAL 05/03/17 02:00 (Ambien) 5 mg HS PRN PO 05/03/17 02:00 (Albuterol Neb) 2.5 mg Q4HR NEB PRN NEB 05/03/17 02:00 Nicardipine HCl 25 mg/Sodium Chloride 250 ml @ 50 mls/hr TITRATE PRN IV 05/03/17 02:00 (Neurontin) 100 mg BID PO 05/03/17 09:00 05/06/17 09:36 Potassium Chloride/Sodium Chloride 1,000 ml @ 80 mls/hr [id number] IV 05/05/17 18:45 05/06/17 07:15 (Vasotec Inj) 1.25 mg Q6H PRN IV PUSH 05/06/17 13:00 Vital Signs / I&O Vital Signs Date Time Temp Pulse Resp B/P (MAP) Pulse Ox O2 Delivery O2 Flow Rate FiO2 05/06/17 06:00 64 05/06/17 04:00 98.5 63 19 145/72 (96) 93 05/06/17 04:00 63 05/06/17 02:00 54 05/06/17 00:00 69 05/06/17 00:00 98.4 62 14 147/79 (101) 95 05/05/17 22:00 58 05/05/17 20:00 57 05/05/17 20:00 98.4 62 14 150/76 (100) 94 05/05/17 19:00 95 Room Air 05/05/17 16:00 98.7 57 18 133/73 (93) 97 I/O 05/05/17 05/05/17 05/05/17 05/06/17 05/06/17 05/06/17 07:00 15:00 23:00 07:00 15:00 23:00 Intake Total 240 ml 120 ml 60 ml Output Total 100 ml Balance 240 ml 20 ml 60 ml Intake Oral 240 ml 120 ml 60 ml Output Urine Total 100 ml # Voids 1 0 # Bowel Movements 0 Physical Exam GENERAL: Well-nourished, well-developed patient. SKIN: Warm and dry. HEAD: Normocephalic. EYES: No scleral icterus. No injection or drainage. NECK: Supple, trachea midline. No JVD or lymphadenopathy. CARDIOVASCULAR: Regular rate and rhythm without murmurs, gallops, or rubs. RESPIRATORY: Breath sounds equal bilaterally. No accessory muscle use. GASTROINTESTINAL: Abdomen soft, non-tender, nondistended. EXTREMITIES: No cyanosis, or edema. NEUROLOGICAL: Awake, alert, and oriented x 3. Non-focal. Imaging Last Impressions Myocardial Perfusion Scan Nuc Med 05/05/17 0000 Signed Impressions: Service Date/Time: Friday, May 05, 2017 09:29 - CONCLUSION: Several areas is suspected mild ischemia in the septum and inferior lateral wall and inferior apex. RISK CATEGORY: Intermediate (1-3%% Annual Mortality Rate) Darin Murray MD Head CT 05/03/17 0900 Signed Impressions: Service Date/Time: April 09:29 - CONCLUSION: 1. New small hemorrhagic contusion is now seen in the left insula area. 2. Otherwise, no other new or significant changes compared to the prior exam of 05/03/2017. 3. Stable hemorrhagic contusions in the posterior right cerebellar hemisphere, left frontal lobe and left parietal area. 4. Stable left frontal subdural hematoma with 6 mm of separation. 5. No significant mass effect or midline shift. Keyur Jimenez MD Cervical Spine CT 05/03/17 0001 Signed Impressions: Service Date/Time: April 00:14 - CONCLUSION: 1. Moderate degenerative changes as described above. There is no evidence of acute fracture. 2. Nondisplaced occipital bone fracture Phillip Torres MD Carotid Artery Ultrasound 05/03/17 0000 Signed Impressions: Service Date/Time: April 13:24 - CONCLUSION: Normal examination for a patient of this age. Keyur Jimenez MD Assessment and Plan Problem List: (1) Syncope ICD Codes: R55 - Syncope and collapse Plan: s/p Syncope Traumatic head Injury (Hemorrhage and subdural hematoma) stable Intermediate risk stress test Given recent head bleed not a candidate for [facility] at this time. Follow with Cardiology upon discharge Recommendations: Start Lisinopril No AV Blocking agents due to bradycardia Start Statin 24hr Holter upon discharge Consider d/c Kiaraien (Bradycardia and Syncope Side effects) Case discuss with Dr. Ramírez (2) Traumatic hematoma of left lower leg ICD Codes: S80.12XA - Contusion of left lower leg, initial encounter Status: Acute (3) Cerebral contusion ICD Codes: S06.339A - Contusion and laceration of cerebrum, unspecified, with loss of consciousness of unspecified duration, initial encounter Status: Acute (4) Subdural hematoma ICD Codes: I62.00 - Nontraumatic subdural hemorrhage, unspecified Status: Acute (5) Subarachnoid hemorrhage after traumatic injury without open intracranial wound, with prolonged lossof consciousness and return to pre-existing level of consciousness ICD Codes: S06.6X9A - Traumatic subarachnoid hemorrhage with loss of consciousness of unspecified duration, initial encounter Status: Acute Bladimir Barnes MD May 06, 2017 12:38
--- NOTE | 2017-05-06 12:38 | PD.CARD.PN ---
Subjective Subjective Remarks No CV complaints Lexiscan Stress Test results noted\ Confused this am Objective Medications Current Medications Medications (Trade) Dose Ordered Sig/Mayra Route Start Time Stop Time Status Last Admin (NS Flush) 2 ml UNSCH PRN IV FLUSH 05/03/17 02:00 (NS Flush) 2 ml BID IV FLUSH 05/03/17 09:00 05/06/17 09:00 (Keppra) 500 mg Q12H PO 05/03/17 09:00 05/06/17 09:36 (Ativan Inj) 1 mg Q1H PRN IV PUSH 05/03/17 02:00 (Colace) 100 mg BID PO 05/03/17 09:00 05/06/17 09:36 (Milk Of Magnesia Liq) 30 ml DAILY PRN PO 05/03/17 02:00 (Mag-Al Plus Susp Liq) 30 ml Q6H PRN PO 05/03/17 02:00 (Protonix) 40 mg DAILY PO 05/03/17 09:00 05/06/17 09:36 (Zofran Inj) 4 mg Q6H PRN IV PUSH 05/03/17 02:00 05/05/17 11:40 (Phenergan Inj) 25 mg Q4H PRN IM 05/03/17 02:00 05/03/17 05:11 Calcium Gluconate 1 gm/Sodium Chloride 110 ml @ 110 mls/hr UNSCH PRN IV 05/03/17 02:00 Potassium Chloride 100 ml @ 50 mls/hr UNSCH PRN IV 05/03/17 02:00 Magnesium Sulfate 2 gm/Sodium Chloride 104 ml @ 100 mls/hr UNSCH PRN IV 05/03/17 02:00 ([place] 10-325 Mg) 1 tab Q4H PRN PO 05/03/17 02:00 05/06/17 01:37 ([place] 10-325 Mg) 2 tab Q4H PRN PO 05/03/17 02:00 05/06/17 10:35 (Morphine Inj) 2 mg Q2H PRN IV PUSH 05/03/17 02:00 05/05/17 11:40 (Trandate Inj) 10 mg Q1H PRN IV PUSH 05/03/17 02:00 05/06/17 09:36 (Catapres) 0.1 mg Q6H PRN PO 05/03/17 02:00 05/06/17 01:36 (Tylenol) 650 mg Q4H PRN PO 05/03/17 02:00 (Baciguent Oint) 1 applic BID TOP 05/03/17 09:00 05/06/17 09:00 ([place] Chasidy) 1 lozenge UNSCH PRN BUCCAL 05/03/17 02:00 (Ambien) 5 mg HS PRN PO 05/03/17 02:00 (Albuterol Neb) 2.5 mg Q4HR NEB PRN NEB 05/03/17 02:00 Nicardipine HCl 25 mg/Sodium Chloride 250 ml @ 50 mls/hr TITRATE PRN IV 05/03/17 02:00 (Neurontin) 100 mg BID PO 05/03/17 09:00 05/06/17 09:36 Potassium Chloride/Sodium Chloride 1,000 ml @ 80 mls/hr [id number] IV 05/05/17 18:45 05/06/17 07:15 (Vasotec Inj) 1.25 mg Q6H PRN IV PUSH 05/06/17 13:00 Vital Signs / I&O Vital Signs Date Time Temp Pulse Resp B/P (MAP) Pulse Ox O2 Delivery O2 Flow Rate FiO2 05/06/17 06:00 64 05/06/17 04:00 98.5 63 19 145/72 (96) 93 05/06/17 04:00 63 05/06/17 02:00 54 05/06/17 00:00 69 05/06/17 00:00 98.4 62 14 147/79 (101) 95 05/05/17 22:00 58 05/05/17 20:00 57 05/05/17 20:00 98.4 62 14 150/76 (100) 94 05/05/17 19:00 95 Room Air 05/05/17 16:00 98.7 57 18 133/73 (93) 97 I/O 05/05/17 05/05/17 05/05/17 05/06/17 05/06/17 05/06/17 07:00 15:00 23:00 07:00 15:00 23:00 Intake Total 240 ml 120 ml 60 ml Output Total 100 ml Balance 240 ml 20 ml 60 ml Intake Oral 240 ml 120 ml 60 ml Output Urine Total 100 ml # Voids 1 0 # Bowel Movements 0 Physical Exam GENERAL: Well-nourished, well-developed patient. SKIN: Warm and dry. HEAD: Normocephalic. EYES: No scleral icterus. No injection or drainage. NECK: Supple, trachea midline. No JVD or lymphadenopathy. CARDIOVASCULAR: Regular rate and rhythm without murmurs, gallops, or rubs. RESPIRATORY: Breath sounds equal bilaterally. No accessory muscle use. GASTROINTESTINAL: Abdomen soft, non-tender, nondistended. EXTREMITIES: No cyanosis, or edema. NEUROLOGICAL: Awake, alert, and oriented x 3. Non-focal. Imaging Last Impressions Myocardial Perfusion Scan Nuc Med 05/05/17 0000 Signed Impressions: Service Date/Time: Friday, May 05, 2017 09:29 - CONCLUSION: Several areas is suspected mild ischemia in the septum and inferior lateral wall and inferior apex. RISK CATEGORY: Intermediate (1-3%% Annual Mortality Rate) Darin Murray MD Head CT 05/03/17 0900 Signed Impressions: Service Date/Time: April 09:29 - CONCLUSION: 1. New small hemorrhagic contusion is now seen in the left insula area. 2. Otherwise, no other new or significant changes compared to the prior exam of 05/03/2017. 3. Stable hemorrhagic contusions in the posterior right cerebellar hemisphere, left frontal lobe and left parietal area. 4. Stable left frontal subdural hematoma with 6 mm of separation. 5. No significant mass effect or midline shift. Keyur Jimenez MD Cervical Spine CT 05/03/17 0001 Signed Impressions: Service Date/Time: April 00:14 - CONCLUSION: 1. Moderate degenerative changes as described above. There is no evidence of acute fracture. 2. Nondisplaced occipital bone fracture Phillip Torres MD Carotid Artery Ultrasound 05/03/17 0000 Signed Impressions: Service Date/Time: April 13:24 - CONCLUSION: Normal examination for a patient of this age. Keyur Jimenez MD Assessment and Plan Problem List: (1) Syncope ICD Codes: R55 - Syncope and collapse Plan: s/p Syncope Traumatic head Injury (Hemorrhage and subdural hematoma) stable Intermediate risk stress test Given recent head bleed not a candidate for [facility] at this time. Follow with Cardiology upon discharge Recommendations: Start Lisinopril No AV Blocking agents due to bradycardia Start Statin 24hr Holter upon discharge Consider d/c Kiaraien (Bradycardia and Syncope Side effects) Case discuss with Dr. Ramírez (2) Traumatic hematoma of left lower leg ICD Codes: S80.12XA - Contusion of left lower leg, initial encounter Status: Acute (3) Cerebral contusion ICD Codes: S06.339A - Contusion and laceration of cerebrum, unspecified, with loss of consciousness of unspecified duration, initial encounter Status: Acute (4) Subdural hematoma ICD Codes: I62.00 - Nontraumatic subdural hemorrhage, unspecified Status: Acute (5) Subarachnoid hemorrhage after traumatic injury without open intracranial wound, with prolonged lossof consciousness and return to pre-existing level of consciousness ICD Codes: S06.6X9A - Traumatic subarachnoid hemorrhage with loss of consciousness of unspecified duration, initial encounter Status: Acute Bladimir Barnes MD May 06, 2017 12:38
--- NOTE | 2017-05-06 12:41 | HHI.NSPN ---
History Chief Complaint: No complaints. TBI after syncopal episode. Interval History 66-year-old gentleman who presented to [facility] emergency room apparently he was drinking beer and relates that he passed out and fell and struck his head on concrete floor. Complains of headache although at this point denies any nausea or vomiting, double vision, or blurred vision. Chronic neck discomfort which is not worse. CT scan of the head obtained initially around midnight ratios the right small cerebellar hemisphere contusion along with multiple left frontal polar area contusions and traumatic subarachnoid hemorrhage in the frontal aspect and lateral Sylvian fissure aspect. He also has a nondisplaced right occipital bone fracture. CT of the cervical spine reveals extensive degenerate changes without any fractures. He was transfer to [facility] and has been monitored and neurologically remained stable. A followup CT scan this morning reveals progression of the contusions involving the left frontal lobe along with a right cerebellar hemisphere and left the insula with a stable left frontal polar 6 mm subdural without any mass effect or midline shift. 05/04: Pt awake and alert. Denies headache, nausea, vomiting, chest pain, sob , weakness. Pt agitated this morning. Pt and states he didn't drink enough to pass out and that he has had 1 near syncopal episode and 2 syncopal episodes in the last year and has had evaluation at [facility] in [place] and states nothing was found although doesn't recall seeing a Continuous [employer] and states he never followed up with anyone. He states he doesn't see a pcp. 05/05: Pt awakens to voice. Complains of headache. No nausea or vomiting. Had stress test this morning. No chest pain or sob. 05/06: Pt awakens to voice. Denies headache currently. No nausea or vomiting. Follows commands. No chest pain or sob. RN states pt was confused earlier and tried to leave. Review of Systems General: Negative for: fever, chills, insomnia Respiratory: Negative for: shortness of breath, cough, sputum Cardiovascular: Negative for: chest pain Gastrointestinal: Negative for: nausea, vomitting, diarrhea, constipation Exam Results Vital Signs Date Time Temp Pulse Resp B/P (MAP) Pulse Ox O2 Delivery O2 Flow Rate FiO2 05/06/17 06:00 64 05/06/17 04:00 98.5 19 145/72 (96) 93 05/05/17 19:00 Room Air 05/03/17 19:58 21 Intake and Output 05/06/17 05/06/17 05/07/17 08:00 16:00 00:00 Intake Total 60 ml Balance 60 ml Physical Examination Resp: CTA bilaterally Heart: NSR no murmurs Abd: Soft positive bs skin: No cyanosis or erythema Muscle: Moves all 4 extremities symmetrically 5/5 strength. Neuro: Pt awakens but complains of headache and prefers his eyes closed currently. Pupils 3mm bilaterally. Speech clear and appropriate. Follows commands well. Lab, Micro, Other Results Last Impressions Myocardial Perfusion Scan Nuc Med 05/05/17 0000 Signed Impressions: Service Date/Time: Friday, May 05, 2017 09:29 - CONCLUSION: Several areas is suspected mild ischemia in the septum and inferior lateral wall and inferior apex. RISK CATEGORY: Intermediate (1-3%% Annual Mortality Rate) Darin Murray MD Head CT 05/03/17 0900 Signed Impressions: Service Date/Time: April 09:29 - CONCLUSION: 1. New small hemorrhagic contusion is now seen in the left insula area. 2. Otherwise, no other new or significant changes compared to the prior exam of 05/03/2017. 3. Stable hemorrhagic contusions in the posterior right cerebellar hemisphere, left frontal lobe and left parietal area. 4. Stable left frontal subdural hematoma with 6 mm of separation. 5. No significant mass effect or midline shift. Keyur Jimenez MD Cervical Spine CT 05/03/17 0001 Signed Impressions: Service Date/Time: April 00:14 - CONCLUSION: 1. Moderate degenerative changes as described above. There is no evidence of acute fracture. 2. Nondisplaced occipital bone fracture Phillip Torres MD Carotid Artery Ultrasound 05/03/17 0000 Signed Impressions: Service Date/Time: April 13:24 - CONCLUSION: Normal examination for a patient of this age. Keyur Jimenez MD Medical Decision Making Impression and Plan 1. 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 There is a nondisplaced right occipital skull bone fracture also. There is a slight progression of these contusions as a hemorrhage in the followup CT scan but again without mass effect. 2. It us unclear whether he had a near-syncopal episode or he fell because of the intoxication and then suffered from this traumatic brain injury. Pts states he has had 1 near syncopal episode and 2 syncopal episodes. She states he was evaluated before at [facility] in [place] and had a workup but nothing was found per pt and his . She is requesting a Cardiology evaluation. PLAN Continue with pain control. Continue to monitor Neuro exam. Follow up CT head tomorrow. Hospitalist consult to assist with HTN and medical management. Discussed plan with RN and Dr. Aviles. Pt requires ICU care secondary to his ICH, hypertension, TBI with confusion and heart ischemia found on stress test which are all being managed. Marc Wilhelm May 06, 2017 12:41 pm
[2017-05-06] MEDS ORDERED: PILL SPLITTER OTHER PRN (12:45)
[2017-05-06] MEDS ORDERED: ASPIRIN EC 81 MG TABEC PO SCH (13:00)
[2017-05-06] MEDS: ENALAPRILAT 1.25 MG/ML VIAL IV PUSH PRN ×2 (13:05→20:06)
[2017-05-06] MEDS: LISINOPRIL 10 MG TAB PO SCH (13:05)
[2017-05-06] MEDS ORDERED: METOPROLOL TARTRATE 25 MG TAB PO SCH (21:00)
[2017-05-07] VITALS (14 sets, daily range): BP systolic 142–156; BP diastolic 69–96; PULSE 51–73; RESP 14–16; TEMP 97.9–98.2; O2SAT 94–98
[2017-05-07] MEDS: ENALAPRILAT 1.25 MG/ML VIAL IV PUSH PRN ×4 (03:11→17:04)
[2017-05-07] MEDS: ACETAMINOPHEN/HYDROcodone 325 MG/10 MG TAB PO PRN ×3 (04:39→18:30)
[2017-05-07] MEDS: cloNIDine HCL 0.1 MG TAB PO PRN ×2 (05:46→16:03)
--- NOTE | 2017-05-07 05:49 | RADRPT ---
EXAM DATE/TIME: 05/07/2017 04:24 [place] COMPARISON: CT BRAIN W/O CONTRAST, May 03, 2017, 9:29. INDICATIONS : Follow up subdural hematoma. RADIATION DOSE: 37.62 CTDIvol (mGy) MEDICAL HISTORY : Hypertension. SURGICAL HISTORY : None. ENCOUNTER: Subsequent ACUITY: 3 days PAIN SCALE: 2/10 LOCATION: cranial TECHNIQUE: Multiple contiguous axial images were obtained of the head. Using automated exposure control and adj ustment of the mA and/or kV according to patient size, radiation dose was kept as low as reasonably a chievable to obtain optimal diagnostic quality images. DICOM format image data is available electro nically for review and comparison. FINDINGS: CEREBRUM: Evolving left frontal, left parietal and right cerebellar hemorrhages. Subdural hemorrhage in the lef t frontal region is again seen and not significantly changed. This measures 6 mm in thickness. There is decreasing subarachnoid hemorrhage bilaterally. The ventricles are normal for age. No evidence of midline shift, mass lesion, or acute infarction. POSTERIOR FOSSA: The cerebellum and brainstem are intact. The 4th ventricle is midline. The cerebellopontine angle i s unremarkable. EXTRACRANIAL: The visualized portion of the orbits is intact. SKULL: The calvaria is intact. No evidence of skull fracture. CONCLUSION: 1. Evolving left frontal, left parietal and right cerebellar hemorrhages. 2. Subdural hemorrhage the left frontal region has not significantly changed. 3. Decreasing subarachnoid hemorrhage bilaterally. Marc Castelan MD on May 07, 2017 at 5:42 Board Certified Radiologist. This report was verified electronically.
[2017-05-07] MEDS: LISINOPRIL 10 MG TAB PO SCH (07:53)
[2017-05-07] MEDS: DOCUSATE SODIUM 100 MG CAP PO SCH ×2 (07:53→20:54)
[2017-05-07] MEDS: GABAPENTIN 100 MG CAP PO SCH ×2 (07:54→20:54)
[2017-05-07] MEDS: ATORVASTATIN 20 MG TAB PO SCH (07:54)
[2017-05-07] MEDS: levETIRAcetam 500 MG TAB PO SCH ×2 (07:54→20:54)
[2017-05-07] MEDS: PANTOPRAZOLE SOD 40 MG DELAYED RELEASE TAB PO SCH (07:54)
[2017-05-07] MEDS: SODIUM CHLORIDE 0.9% FLUSH 10 ML FLUSH IV FLUSH SCH ×2 (07:55→20:55)
[2017-05-07] MEDS: BACITRACIN TOP OINT 15 GM TUBE TOP SCH ×2 (09:00→20:55)
[2017-05-07] MEDS: NS + KCL 20 MEQ INJ 1,000 ML IV SCH ×2 (09:11→20:55)
[2017-05-07] MEDS: LABETALOL HCL 100 MG/20 ML VIAL IV PUSH PRN ×4 (11:20→17:04)
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
[2017-05-07] MEDS: MORPHINE SULFATE 4 MG/ML INJ IV PUSH PRN ×2 (18:30→20:55)
[2017-05-07] MEDS: ONDANSETRON HCL 4 MG/2 ML VIAL IV PUSH PRN (20:56)
[2017-05-08] VITALS (12 sets, daily range): BP systolic 134–169; BP diastolic 65–100; PULSE 52–110; RESP 7–20; TEMP 97.6–98.8; O2SAT 93–97
[2017-05-08] MEDS: ENALAPRILAT 1.25 MG/ML VIAL IV PUSH PRN (04:29)
[2017-05-08] MEDS: LABETALOL HCL 100 MG/20 ML VIAL IV PUSH PRN ×2 (05:09→07:47)
[2017-05-08] MEDS: MORPHINE SULFATE 4 MG/ML INJ IV PUSH PRN (05:41)
[2017-05-08] MEDS: cloNIDine HCL 0.1 MG TAB PO PRN (06:37)
[2017-05-08] MEDS ORDERED: hydrALAZINE HCL 20 MG/ML VIAL ONE (08:27)
[2017-05-08] MEDS ORDERED: hydrALAZINE HCL 20 MG/ML VIAL IV ONE (09:00)
[2017-05-08] MEDS: BACITRACIN TOP OINT 15 GM TUBE TOP SCH ×2 (09:00→21:01)
[2017-05-08] MEDS: SODIUM CHLORIDE 0.9% FLUSH 10 ML FLUSH IV FLUSH SCH ×2 (09:00→21:01)
[2017-05-08] MEDS: PANTOPRAZOLE SOD 40 MG DELAYED RELEASE TAB PO SCH (09:00)
[2017-05-08] MEDS: ACETAMINOPHEN/HYDROcodone 325 MG/10 MG TAB PO PRN ×2 (09:00→16:30)
[2017-05-08] MEDS: GABAPENTIN 100 MG CAP PO SCH ×2 (09:01→21:00)
[2017-05-08] MEDS: levETIRAcetam 500 MG TAB PO SCH ×2 (09:01→21:00)
[2017-05-08] MEDS: LISINOPRIL 10 MG TAB PO SCH ×2 (09:01→21:01)
[2017-05-08] MEDS: DOCUSATE SODIUM 100 MG CAP PO SCH ×2 (09:02→21:00)
[2017-05-08] MEDS: ATORVASTATIN 20 MG TAB PO SCH (09:03)
[2017-05-08] MEDS: ONDANSETRON HCL 4 MG/2 ML VIAL IV PUSH PRN (09:13)
[2017-05-08] MEDS: niCARdipine INJ 25 MG in SODIUM CHLOR 0.9% 250 ML INJ 240 ML IV PRN ×3 (09:21→22:11)
[2017-05-08] MEDS ORDERED: PILL SPLITTER OTHER PRN (10:00)
[2017-05-08] MEDS ORDERED: niCARdipine INJ 25 MG in SODIUM CHLOR 0.9% 250 ML INJ 240 ML IV PRN (10:00)
[2017-05-08] MEDS ORDERED: hydrALAZINE HCL 50 MG TAB PO SCH (10:00)
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
--- NOTE | 2017-05-08 10:18 | PD.CONS ---
HPI Service [facility] Consult Requested By TIFFANY Sainz Reason for Consult Medical management Primary Care Physician No Primary Care Physician Diagnoses: History of Present Illness This is a 66-year-old male past medical history of depression, gout, history of kidney stones who presented with head trauma. Patient was found drinking beer and passed out and hit his head on concrete floor. He was found to have small cerebellar hemisphere contusion along with multiple left frontal polar area contusions and traumatic subarachnoid hemorrhage in the frontal aspect and lateral sylvian fissure aspect. He also had a nondisplaced right occipital bone fracture. Patient has been in the [facility] out of the management of the neurosurgeon and [facility] consulted for medical management. During his hospitalization he had a concerning nuclear stress test done in which leasing property manager was consulted and clear patient. During the interview patient's and his nurse at the bedside. Patient is intermittently confused but it has not worsened. He is able to tell me his name, location, date and the president. Patient stated that he has a bad headache. When I asked if the headache worsened he stated that "he does not know." Per patient's nurse Dr. Aviles is aware and she stated that he has been stable in terms of his headache and confusion. Patient is currently on the Cardizem drip. Besides the headache he had no other complaints. Per nurse on complete was the hypertension. Otherwise all other systems of review were reviewed and negative. Past Family Social History Allergies: Coded Allergies: No Known Allergies (Verified , 05/02/17) Past Medical History 1. Depression 2. Gout 3. Kidney stones. Past Surgical History Deny past surgical history. Reported Medications Gabapentin 100 Mg Cap 100 Mg PO BID Aspirin 325 Mg Tab 325 Mg PO DAILY Active Ordered Medications Current Medications Sodium Chloride (NS Flush) 2 ml UNSCH PRN IV FLUSH FLUSH AFTER USING IV ACCESS ; Start 05/03/17 at 02:00 Sodium Chloride (NS Flush) 2 ml BID IV FLUSH Last administered on 05/08/17 09 :00; Start 05/03/17 at 09:00 Levetriacetam (Keppra) 500 mg Q12H PO Last administered on 05/08/17 09:01; Start 05/03/17 at 09:00 Lorazepam (Ativan Inj) 1 mg Q1H PRN IV PUSH SEIZURES; Start 05/03/17 at 02:00 Docusate Sodium (Colace) 100 mg BID PO Last administered on 05/08/17 09:02; Start 05/03/17 at 09:00 Magnesium Hydroxide (Milk Of Magnesia Liq) 30 ml DAILY PRN PO CONSTIPATION; Start 05/03/17 at 02:00 Al Hydrox/Mg Hydrox/Simethicone (Mag-Al Plus Susp Liq) 30 ml Q6H PRN PO DYSPEPSIA; Start 05/03/17 at 02:00 Pantoprazole Sodium (Protonix) 40 mg DAILY PO Last administered on 05/08/17 09:00; Start 05/03/17 at 09:00 Ondansetron HCl (Zofran Inj) 4 mg Q6H PRN IV PUSH NAUSEA OR VOMITING Last administered on 05/08/17 09:13; Start 05/03/17 at 02:00 Promethazine HCl (Phenergan Inj) 25 mg Q4H PRN IM NAUSEA OR VOMITING Last administered on 05/03/17 05:11; Start 05/03/17 at 02:00 Calcium Gluconate 1 gm/Sodium Chloride 110 ml @ 110 mls/hr UNSCH PRN IV SEE LABEL COMMENTS; Start 05/03/17 at 02:00 Potassium Chloride 100 ml @ 50 mls/hr UNSCH PRN IV POTASSIUM LESS THAN 4; Start 05/03/17 at 02:00 Magnesium Sulfate 2 gm/Sodium Chloride 104 ml @ 100 mls/hr UNSCH PRN IV MAGNESIUM LESS THAN 2; Start 05/03/17 at 02:00 Acetaminophen/ Hydrocodone Bitart ([place] 10-325 Mg) 1 tab Q4H PRN PO PAIN SCALE 1 TO 5 Last administered on 05/07/17 04:39; Start 05/03/17 at 02:00 Acetaminophen/ Hydrocodone Bitart ([place] 10-325 Mg) 2 tab Q4H PRN PO PAIN SCALE 6 TO 10 Last administered on 05/08/17 09:00; Start 05/03/17 at 02:00 Morphine Sulfate (Morphine Inj) 2 mg Q2H PRN IV PUSH breakthorugh pain> 6 Last administered on 05/08/17 05:41; Start 05/03/17 at 02:00 Labetalol HCl (Trandate Inj) 10 mg Q1H PRN IV PUSH SYS BP GREATER THAN 170 MMHG Last administered on 05/08/17 07:47; Start 05/03/17 at 02:00 Clonidine (Catapres) 0.1 mg Q6H PRN PO SYS BP GREATER THAN 170 MMHG Last administered on 05/08/17 06:37; Start 05/03/17 at 02:00 Acetaminophen (Tylenol) 650 mg Q4H PRN PO TEMPERATURE > 101.5 F; Start at 02:00 Bacitracin (Baciguent Oint) 1 applic BID TOP Last administered on 05/08/17 09 :00; Start 05/03/17 at 09:00 Menthol ([place]) 1 lozenge UNSCH PRN BUCCAL SORE THROAT; Start 05/03/17 at 02:00 Zolpidem Tartrate (Ambien) 5 mg HS PRN PO INSOMNIA; Start 05/03/17 at 02:00 Albuterol Sulfate (Albuterol Neb) 2.5 mg Q4HR NEB PRN NEB WHEEZING; Start at 02:00 Nicardipine HCl 25 mg/Sodium Chloride 250 ml @ 50 mls/hr TITRATE PRN IV Blood pressure management Last administered on 05/08/17 09:21; Start 05/03/17 at 02 :00 Gabapentin (Neurontin) 100 mg BID PO Last administered on 05/08/17 09:01; Start 05/03/17 at 09:00 Potassium Chloride (KCl) 30 meq ONCE ONCE PO Last administered on 05/03/17 02:21; Start 05/03/17 at 02:15; Stop 05/03/17 at 02:16; Status DC Regadenoson (Lexiscan Inj) 0.4 mg STK-MED ONCE .ROUTE Last administered on 10:08; Start 05/05/17 at 10:08; Stop 05/05/17 at 10:09; Status DC Potassium Chloride/Sodium Chloride 1,000 ml @ 80 mls/hr [id number] IV Last administered on 05/07/17 20:55; Start 05/05/17 at 18:45 Enalaprilat (Vasotec Inj) 1.25 mg Q6H PRN IV PUSH SBP>160, DBP>90 Last administered on 05/08/17 04:29; Start 05/06/17 at 13:00 Aspirin (Ecotrin Ec) 81 mg DAILY PO ; Start 05/06/17 at 13:00; Stop 05/06/17 at 13:00; Status DC Metoprolol Tartrate (Lopressor) 12.5 mg Q12HR PO ; Start 05/06/17 at 21:00; Stop 05/06/17 at 21:00; Status DC Atorvastatin Calcium (Lipitor) 20 mg DAILY PO Last administered on 05/08/17 09:03; Start 05/07/17 at 09:00 Miscellaneous (Pill Splitter) 1 ea UNSCH PRN OTHER SEE LABEL COMMENTS; Start 05/06/17 at 12:45 Lisinopril (Prinivil) 10 mg DAILY PO Last administered on 05/08/17 09:01; Start 05/06/17 at 13:00; Stop 05/08/17 at 09:38; Status DC Hydralazine HCl (Apresoline Inj) 20 mg STK-MED ONCE .ROUTE ; Start 05/08/17 at 08:27; Stop 05/08/17 at 08:28; Status DC Hydralazine HCl (Apresoline Inj) 10 mg NOW ONCE IV ; Start 05/08/17 at 09:00; Stop 05/08/17 at 09:14; Status DC Nicardipine HCl 25 mg/Sodium Chloride 250 ml @ 50 mls/hr TITRATE PRN IV BP CONTROL; Start 05/08/17 at 10:00 Lisinopril (Prinivil) 10 mg BID PO ; Start 05/08/17 at 21:00 Hydralazine HCl (Apresoline) 50 mg Q8H PO ; Start 05/08/17 at 10:00; Stop at 10:00; Status DC Amlodipine Besylate (Norvasc) 5 mg DAILY PO ; Start 05/08/17 at 09:30 Hydralazine HCl (Apresoline) 25 mg Q8H PO ; Start 05/08/17 at 10:00 Miscellaneous (Pill Splitter) 1 ea UNSCH PRN OTHER SEE LABEL COMMENTS; Start 05/08/17 at 10:00 Family History Father has a history of stroke. No history of cancer in the family. Social History He is , he admits to drinking two beers on the week days and about four to five beers on the weekend per day. He smokes three to four cigars per day and marijuana on occasional basis. Physical Exam Vital Signs Vital Signs Date Time Temp Pulse Resp B/P (MAP) Pulse Ox O2 Delivery O2 Flow Rate FiO2 05/08/17 09:21 56 195/88 05/08/17 06:00 60 05/08/17 04:00 98.2 60 16 168/100 (122) 96 05/08/17 04:00 60 05/08/17 02:00 61 05/08/17 00:00 98.8 60 13 145/89 (107) 95 05/08/17 00:00 52 05/07/17 22:00 60 05/07/17 20:36 94 05/07/17 20:00 97.9 60 16 156/83 (107) 96 05/07/17 20:00 60 05/07/17 19:00 96 Room Air 05/07/17 18:56 12 05/07/17 18:00 52 05/07/17 17:12 98 21 05/07/17 16:00 56 05/07/17 16:00 98.2 63 14 153/82 (105) 97 05/07/17 14:00 59 05/07/17 12:00 98.2 62 14 155/91 (112) 97 05/07/17 12:00 73 Physical Exam GENERAL: This is a well-nourished, well-developed patient, in no apparent distress who is sitting in the chair with his eyes close but arousable. SKIN: No rashes, ecchymoses or lesions. Cool and dry. HEAD: Atraumatic. Normocephalic. No temporal or scalp tenderness. EYES: Pupils equal round and reactive. Extraocular motions intact. No scleral icterus. No injection or drainage. ENT: Nose without bleeding, purulent drainage or septal hematoma. Throat without erythema, tonsillar hypertrophy or exudate. Uvula midline. Airway patent. NECK: Trachea midline. No JVD or lymphadenopathy. Supple, nontender, no meningeal signs. CARDIOVASCULAR: Regular rate and rhythm without murmurs, gallops, or rubs. RESPIRATORY: Clear to auscultation. Breath sounds equal bilaterally. No wheezes , rales, or rhonchi. GASTROINTESTINAL: Abdomen soft, non-tender, nondistended. No hepato-splenomegaly , or palpable masses. No guarding. MUSCULOSKELETAL: Extremities without clubbing, cyanosis, or edema. No joint tenderness, effusion, or edema noted. No calf tenderness. Negative Homans sign bilaterally. NEUROLOGICAL: Awake and alert and answers questions appropriately. Cranial nerves II through XII intact. Motor and sensory grossly within normal limits. Five out of 5 muscle strength in all muscle groups. Normal speech but does not speak much secondary to headache. Result Diagram: 05/04/1744105/04/17441 Imaging Last Impressions Head CT 05/07/17 0600 Signed Impressions: Service Date/Time: Sunday, May 07, 2017 04:24 - CONCLUSION: 1. Evolving left frontal, left parietal and right cerebellar hemorrhages. 2. Subdural hemorrhage the left frontal region has not significantly changed. 3. Decreasing subarachnoid hemorrhage bilaterally. Marc Castelan MD Myocardial Perfusion Scan Nuc Med 05/05/17 0000 Signed Impressions: Service Date/Time: Friday, May 05, 2017 09:29 - CONCLUSION: Several areas is suspected mild ischemia in the septum and inferior lateral wall and inferior apex. RISK CATEGORY: Intermediate (1-3%% Annual Mortality Rate) Darin Murray MD Cervical Spine CT 05/03/17 0001 Signed Impressions: Service Date/Time: April 00:14 - CONCLUSION: 1. Moderate degenerative changes as described above. There is no evidence of acute fracture. 2. Nondisplaced occipital bone fracture Phillip Torres MD Carotid Artery Ultrasound 05/03/17 0000 Signed Impressions: Service Date/Time: April 13:24 - CONCLUSION: Normal examination for a patient of this age. Keyur Jimenez MD Assessment and Plan Assessment and Plan 66-year-old male with who presented with head trauma TBI with small left frontal polar subdural hemorrhage along with the frontal lobe contusions involving also the right cerebellar hemisphere and left parietal lobe with some associate traumatic subarachnoid hemorrhage without mass effect or midline shift. There is a nondisplaced right occipital skull bone fracture also. -Repeat CT scan of the head showed There is a slight progression of these contusions as a hemorrhage without mass effect. -Confusion seems to be intermittent and and headache seems to be stable. -Management per neurosurgeon. Patient is being managed and the [facility] for frequent neuro exams. -Will get a CT scan if confusion worsens. Uncontrolled hypertension -Patient currently on the Cardene drip. Lisinopril was increased to 10 mg twice twice a day, amlodipine was added, and hydralazine 25 mg by mouth 3 times a day was also added today. -Continue Cardene drip and titrate down as tolerated. -Patient's nurse also contacted his leasing property manager Dr. Trujillo to help with management. Questionable syncope -Patient was found intoxicated with multiple substance. Cardiac workup was done which showed a concerning nuclear stress test. Higher Level Teaching Assistant consulted stated that patient is not a candidate for left heart catheterization due to recent intracranial bleed. He is asymptomatic. -Urine drug screen was positive for alcohol, cannabinoids and opioids. -Higher Level Teaching Assistant recommends a 24-hour Holter monitor as outpatient. -Patient was also started on a statin. -Echo she had a EF of 55-60%. DVT prophylaxis -SCDs -Anticoagulations per primary team. Discussed Condition With Patient, his , and his nurse. All questions and concerns were answered to patient and satisfaction. Bianca Cabello MD May 08, 2017 10:18
--- NOTE | 2017-05-08 11:06 | HHI.NSPN ---
(Lisset Vizcarra) Note Status Status: Progress Note (Lisset Vizcarra) Interval History Interval History 66-year-old gentleman who presented to [facility] emergency room apparently he was drinking beer and relates that he passed out and fell and struck his head on concrete floor. Complains of headache although at this point denies any nausea or vomiting, double vision, or blurred vision. Chronic neck discomfort which is not worse. CT scan of the head obtained initially around midnight ratios the right small cerebellar hemisphere contusion along with multiple left frontal polar area contusions and traumatic subarachnoid hemorrhage in the frontal aspect and lateral Sylvian fissure aspect. He also has a nondisplaced right occipital bone fracture. CT of the cervical spine reveals extensive degenerate changes without any fractures. He was transfer to [facility] and has been monitored and neurologically remained stable. A followup CT scan this morning reveals progression of the contusions involving the left frontal lobe along with a right cerebellar hemisphere and left the insula with a stable left frontal polar 6 mm subdural without any mass effect or midline shift. 05/04: Pt awake and alert. Denies headache, nausea, vomiting, chest pain, sob , weakness. Pt agitated this morning. Pt and states he didn't drink enough to pass out and that he has had 1 near syncopal episode and 2 syncopal episodes in the last year and has had evaluation at [facility] in [place] and states nothing was found although doesn't recall seeing a Check Examiner and states he never followed up with anyone. He states he doesn't see a pcp. 05/05: Pt awakens to voice. Complains of headache. No nausea or vomiting. Had stress test this morning. No chest pain or sob. 05/06: Pt awakens to voice. Denies headache currently. No nausea or vomiting. Follows commands. No chest pain or sob. RN states pt was confused earlier and tried to leave. 05/07: The patient is awake and fairly alert. He does state that he has intermittently had a headache and dizziness. Nursing reports that so far today the patient has been oriented to person, place and time, but during the night he did occasionally have an episode of confusion. 05/08: patient seen this morning during rounds. continues with elevated uncontrolled blood pressure. unhappy as medical physician has not seen the patient despite consultation on 05/06 for blood pressure management. we have started on Cardizem drip now. remains confused but reports mental status has been stable. (Lisset Vizcarra) Labs, Micro, & Vital Signs Results Date Time Temp Pulse Resp B/P (MAP) Pulse Ox O2 Delivery O2 Flow Rate FiO2 05/08/17 09:21 56 195/88 05/08/17 06:00 60 05/08/17 04:00 98.2 60 16 168/100 (122) 96 05/08/17 04:00 60 05/08/17 02:00 61 05/08/17 00:00 98.8 60 13 145/89 (107) 95 05/08/17 00:00 52 05/07/17 22:00 60 05/07/17 20:36 94 05/07/17 20:00 97.9 60 16 156/83 (107) 96 05/07/17 20:00 60 05/07/17 19:00 96 Room Air 05/07/17 18:56 12 05/07/17 18:00 52 05/07/17 17:12 98 21 05/07/17 16:00 56 05/07/17 16:00 98.2 63 14 153/82 (105) 97 05/07/17 14:00 59 05/07/17 12:00 98.2 62 14 155/91 (112) 97 05/07/17 12:00 73 Constitutional Vital Signs Date Time Temp Pulse Resp B/P (MAP) Pulse Ox O2 Delivery O2 Flow Rate FiO2 05/08/17 09:21 56 195/88 05/08/17 06:00 60 05/08/17 04:00 98.2 60 16 168/100 (122) 96 05/08/17 04:00 60 05/08/17 02:00 61 05/08/17 00:00 98.8 60 13 145/89 (107) 95 05/08/17 00:00 52 05/07/17 22:00 60 05/07/17 20:36 94 05/07/17 20:00 97.9 60 16 156/83 (107) 96 05/07/17 20:00 60 05/07/17 19:00 96 Room Air 05/07/17 18:56 12 05/07/17 18:00 52 05/07/17 17:12 98 21 05/07/17 16:00 56 05/07/17 16:00 98.2 63 14 153/82 (105) 97 05/07/17 14:00 59 05/07/17 12:00 98.2 62 14 155/91 (112) 97 05/07/17 12:00 73 (Lisset Vizcarra) Physical Exam Sitting up in chair, nods to questions. Conversing minimally. Motor: moving all four extremities symmetrically (Lisset Vizcarra) Medications Current Medications Current Medications Medications (Trade) Dose Ordered Sig/Mayra Route PRN Reason Start Time Stop Time Status Last Admin Dose Admin Sodium Chloride (NS Flush) 2 ml UNSCH PRN IV FLUSH FLUSH AFTER USING IV ACCESS 05/03/17 02:00 Sodium Chloride (NS Flush) 2 ml BID IV FLUSH 05/03/17 09:00 05/08/17 09:00 Levetriacetam (Keppra) 500 mg Q12H PO 05/03/17 09:00 05/08/17 09:01 Lorazepam (Ativan Inj) 1 mg Q1H PRN IV PUSH SEIZURES 05/03/17 02:00 Docusate Sodium (Colace) 100 mg BID PO 05/03/17 09:00 05/08/17 09:02 Magnesium Hydroxide (Milk Of Magnesia Liq) 30 ml DAILY PRN PO CONSTIPATION 05/03/17 02:00 Al Hydrox/Mg Hydrox/Simethicone (Mag-Al Plus Susp Liq) 30 ml Q6H PRN PO DYSPEPSIA 05/03/17 02:00 Pantoprazole Sodium (Protonix) 40 mg DAILY PO 05/03/17 09:00 05/08/17 09:00 Ondansetron HCl (Zofran Inj) 4 mg Q6H PRN IV PUSH NAUSEA OR VOMITING 05/03/17 02:00 05/08/17 09:13 Promethazine HCl (Phenergan Inj) 25 mg Q4H PRN IM NAUSEA OR VOMITING 05/03/17 02:00 05/03/17 05:11 Calcium Gluconate 1 gm/Sodium Chloride 110 ml @ 110 mls/hr UNSCH PRN IV SEE LABEL COMMENTS 05/03/17 02:00 Potassium Chloride 100 ml @ 50 mls/hr UNSCH PRN IV POTASSIUM LESS THAN 4 05/03/17 02:00 Magnesium Sulfate 2 gm/Sodium Chloride 104 ml @ 100 mls/hr UNSCH PRN IV MAGNESIUM LESS THAN 2 05/03/17 02:00 Acetaminophen/ Hydrocodone Bitart ([place] 10-325 Mg) 1 tab Q4H PRN PO PAIN SCALE 1 TO 5 05/03/17 02:00 05/07/17 04:39 Acetaminophen/ Hydrocodone Bitart ([place] 10-325 Mg) 2 tab Q4H PRN PO PAIN SCALE 6 TO 10 05/03/17 02:00 05/08/17 09:00 Morphine Sulfate (Morphine Inj) 2 mg Q2H PRN IV PUSH breakthorugh pain> 6 05/03/17 02:00 05/08/17 05:41 Labetalol HCl (Trandate Inj) 10 mg Q1H PRN IV PUSH SYS BP GREATER THAN 170 MMHG 05/03/17 02:00 05/08/17 07:47 Clonidine (Catapres) 0.1 mg Q6H PRN PO SYS BP GREATER THAN 170 MMHG 05/03/17 02:00 05/08/17 06:37 Acetaminophen (Tylenol) 650 mg Q4H PRN PO TEMPERATURE > 101.5 F 05/03/17 02:00 Bacitracin (Baciguent Oint) 1 applic BID TOP 05/03/17 09:00 05/08/17 09:00 Menthol ([place] Chasidy) 1 lozenge UNSCH PRN BUCCAL SORE THROAT 05/03/17 02:00 Zolpidem Tartrate (Ambien) 5 mg HS PRN PO INSOMNIA 05/03/17 02:00 Albuterol Sulfate (Albuterol Neb) 2.5 mg Q4HR NEB PRN NEB WHEEZING 05/03/17 02:00 Nicardipine HCl 25 mg/Sodium Chloride 250 ml @ 50 mls/hr TITRATE PRN IV Blood pressure management 05/03/17 02:00 05/08/17 09:21 Gabapentin (Neurontin) 100 mg BID PO 05/03/17 09:00 05/08/17 09:01 Potassium Chloride/Sodium Chloride 1,000 ml @ 80 mls/hr [id number] IV 05/05/17 18:45 05/08/17 11:53 Enalaprilat (Vasotec Inj) 1.25 mg Q6H PRN IV PUSH SBP>160, DBP>90 05/06/17 13:00 05/08/17 04:29 Atorvastatin Calcium (Lipitor) 20 mg DAILY PO 05/07/17 09:00 05/08/17 09:03 Miscellaneous (Pill Splitter) 1 ea UNSCH PRN OTHER SEE LABEL COMMENTS 05/06/17 12:45 Nicardipine HCl 25 mg/Sodium Chloride 250 ml @ 50 mls/hr TITRATE PRN IV BP CONTROL 05/08/17 10:00 Lisinopril (Prinivil) 10 mg BID PO 05/08/17 21:00 Amlodipine Besylate (Norvasc) 5 mg DAILY PO 05/08/17 09:30 05/08/17 11:52 Hydralazine HCl (Apresoline) 25 mg Q8H PO 05/08/17 10:00 05/08/17 11:52 Miscellaneous (Pill Splitter) 1 ea UNSCH PRN OTHER SEE LABEL COMMENTS 05/08/17 10:00 (Lisset Vizcarra) Medical Decision Making MDM Remarks 1. 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 There is a nondisplaced right occipital skull bone fracture also. There is a slight progression of these contusions as a hemorrhage in the followup CT scan but again without mass effect. 2. It us unclear whether he had a near-syncopal episode or he fell because of the intoxication and then suffered from this traumatic brain injury. 3. heart ischemia per stress test 4. Uncontrolled Hypertension (Lisset Vizcarra) Plan Plan Remarks Cardiology following clear from N[facility] standpoint to start aspirin, will hold on cardiac catheterization in view of acute ICH cont neuro checks in [facility] started on Cardene drip for blood pressure control, cont current antihypertensives, awaiting hospitalist evaluation, rubber cutter and shape carver consulted per Dr. Traci Guzman and Dr. Dyer (Lisset Vizcarra) Attending Statement The exam, history, and the medical decision-making described in the above note were completed with the assistance of the mid-level provider. I reviewed and agree with the findings presented. I attest that I had a [id number] encounter with the patient on the same day, and personally performed and documented my assessment and findings in the medical record. (Gavin Aviles MD) Lisset Vizcarra May 08, 2017 11:05 Gavin Aviles MD May 13, 2017 22:05
--- NOTE | 2017-05-08 11:06 | HHI.NSPN ---
(Lisset Vizcarar) Note Status Status: Progress Note (Lisset Vizcarra) Interval History Interval History 66-year-old gentleman who presented to [facility] emergency room apparently he was drinking beer and relates that he passed out and fell and struck his head on concrete floor. Complains of headache although at this point denies any nausea or vomiting, double vision, or blurred vision. Chronic neck discomfort which is not worse. CT scan of the head obtained initially around midnight ratios the right small cerebellar hemisphere contusion along with multiple left frontal polar area contusions and traumatic subarachnoid hemorrhage in the frontal aspect and lateral Sylvian fissure aspect. He also has a nondisplaced right occipital bone fracture. CT of the cervical spine reveals extensive degenerate changes without any fractures. He was transfer to [facility] Intensive Care Unit and has been monitored and neurologically remained stable. A followup CT scan this morning reveals progression of the contusions involving the left frontal lobe along with a right cerebellar hemisphere and left the insula with a stable left frontal polar 6 mm subdural without any mass effect or midline shift. 05/04: Pt awake and alert. Denies headache, nausea, vomiting, chest pain, sob , weakness. Pt agitated this morning. Pt and states he didn't drink enough to pass out and that he has had 1 near syncopal episode and 2 syncopal episodes in the last year and has had evaluation at [facility] in [place] and states nothing was found although doesn't recall seeing a Sole Ruffer and states he never followed up with anyone. He states he doesn't see a pcp. 05/05: Pt awakens to voice. Complains of headache. No nausea or vomiting. Had stress test this morning. No chest pain or sob. 05/06: Pt awakens to voice. Denies headache currently. No nausea or vomiting. Follows commands. No chest pain or sob. RN states pt was confused earlier and tried to leave. 05/07: The patient is awake and fairly alert. He does state that he has intermittently had a headache and dizziness. Nursing reports that so far today the patient has been oriented to person, place and time, but during the night he did occasionally have an episode of confusion. 05/08: patient seen this morning during rounds. continues with elevated uncontrolled blood pressure. unhappy as medical physician has not seen the patient despite consultation on 05/06 for blood pressure management. we have started on Cardizem drip now. remains confused but reports mental status has been stable. (Lisset Vizcarra) Labs, Micro, & Vital Signs Results Date Time Temp Pulse Resp B/P (MAP) Pulse Ox O2 Delivery O2 Flow Rate FiO2 05/08/17 09:21 56 195/88 05/08/17 06:00 60 05/08/17 04:00 98.2 60 16 168/100 (122) 96 05/08/17 04:00 60 05/08/17 02:00 61 05/08/17 00:00 98.8 60 13 145/89 (107) 95 05/08/17 00:00 52 05/07/17 22:00 60 05/07/17 20:36 94 05/07/17 20:00 97.9 60 16 156/83 (107) 96 05/07/17 20:00 60 05/07/17 19:00 96 Room Air 05/07/17 18:56 12 05/07/17 18:00 52 05/07/17 17:12 98 21 05/07/17 16:00 56 05/07/17 16:00 98.2 63 14 153/82 (105) 97 05/07/17 14:00 59 05/07/17 12:00 98.2 62 14 155/91 (112) 97 05/07/17 12:00 73 Constitutional Vital Signs Date Time Temp Pulse Resp B/P (MAP) Pulse Ox O2 Delivery O2 Flow Rate FiO2 05/08/17 09:21 56 195/88 05/08/17 06:00 60 05/08/17 04:00 98.2 60 16 168/100 (122) 96 05/08/17 04:00 60 05/08/17 02:00 61 05/08/17 00:00 98.8 60 13 145/89 (107) 95 05/08/17 00:00 52 05/07/17 22:00 60 05/07/17 20:36 94 05/07/17 20:00 97.9 60 16 156/83 (107) 96 05/07/17 20:00 60 05/07/17 19:00 96 Room Air 05/07/17 18:56 12 05/07/17 18:00 52 05/07/17 17:12 98 21 05/07/17 16:00 56 05/07/17 16:00 98.2 63 14 153/82 (105) 97 05/07/17 14:00 59 05/07/17 12:00 98.2 62 14 155/91 (112) 97 05/07/17 12:00 73 (Lisset Vizcarra) Physical Exam Sitting up in chair, nods to questions. Conversing minimally. Motor: moving all four extremities symmetrically (Lisset Vizcarra) Medications Current Medications Current Medications Medications (Trade) Dose Ordered Sig/Mayra Route PRN Reason Start Time Stop Time Status Last Admin Dose Admin Sodium Chloride (NS Flush) 2 ml UNSCH PRN IV FLUSH FLUSH AFTER USING IV ACCESS 05/03/17 02:00 Sodium Chloride (NS Flush) 2 ml BID IV FLUSH 05/03/17 09:00 05/08/17 09:00 Levetriacetam (Keppra) 500 mg Q12H PO 05/03/17 09:00 05/08/17 09:01 Lorazepam (Ativan Inj) 1 mg Q1H PRN IV PUSH SEIZURES 05/03/17 02:00 Docusate Sodium (Colace) 100 mg BID PO 05/03/17 09:00 05/08/17 09:02 Magnesium Hydroxide (Milk Of Magnesia Liq) 30 ml DAILY PRN PO CONSTIPATION 05/03/17 02:00 Al Hydrox/Mg Hydrox/Simethicone (Mag-Al Plus Susp Liq) 30 ml Q6H PRN PO DYSPEPSIA 05/03/17 02:00 Pantoprazole Sodium (Protonix) 40 mg DAILY PO 05/03/17 09:00 05/08/17 09:00 Ondansetron HCl (Zofran Inj) 4 mg Q6H PRN IV PUSH NAUSEA OR VOMITING 05/03/17 02:00 05/08/17 09:13 Promethazine HCl (Phenergan Inj) 25 mg Q4H PRN IM NAUSEA OR VOMITING 05/03/17 02:00 05/03/17 05:11 Calcium Gluconate 1 gm/Sodium Chloride 110 ml @ 110 mls/hr UNSCH PRN IV SEE LABEL COMMENTS 05/03/17 02:00 Potassium Chloride 100 ml @ 50 mls/hr UNSCH PRN IV POTASSIUM LESS THAN 4 05/03/17 02:00 Magnesium Sulfate 2 gm/Sodium Chloride 104 ml @ 100 mls/hr UNSCH PRN IV MAGNESIUM LESS THAN 2 05/03/17 02:00 Acetaminophen/ Hydrocodone Bitart ([place] 10-325 Mg) 1 tab Q4H PRN PO PAIN SCALE 1 TO 5 05/03/17 02:00 05/07/17 04:39 Acetaminophen/ Hydrocodone Bitart ([place] 10-325 Mg) 2 tab Q4H PRN PO PAIN SCALE 6 TO 10 05/03/17 02:00 05/08/17 09:00 Morphine Sulfate (Morphine Inj) 2 mg Q2H PRN IV PUSH breakthorugh pain> 6 05/03/17 02:00 05/08/17 05:41 Labetalol HCl (Trandate Inj) 10 mg Q1H PRN IV PUSH SYS BP GREATER THAN 170 MMHG 05/03/17 02:00 05/08/17 07:47 Clonidine (Catapres) 0.1 mg Q6H PRN PO SYS BP GREATER THAN 170 MMHG 05/03/17 02:00 05/08/17 06:37 Acetaminophen (Tylenol) 650 mg Q4H PRN PO TEMPERATURE > 101.5 F 05/03/17 02:00 Bacitracin (Baciguent Oint) 1 applic BID TOP 05/03/17 09:00 05/08/17 09:00 Menthol ([place] Chasidy) 1 lozenge UNSCH PRN BUCCAL SORE THROAT 05/03/17 02:00 Zolpidem Tartrate (Ambien) 5 mg HS PRN PO INSOMNIA 05/03/17 02:00 Albuterol Sulfate (Albuterol Neb) 2.5 mg Q4HR NEB PRN NEB WHEEZING 05/03/17 02:00 Nicardipine HCl 25 mg/Sodium Chloride 250 ml @ 50 mls/hr TITRATE PRN IV Blood pressure management 05/03/17 02:00 05/08/17 09:21 Gabapentin (Neurontin) 100 mg BID PO 05/03/17 09:00 05/08/17 09:01 Potassium Chloride/Sodium Chloride 1,000 ml @ 80 mls/hr [id number] IV 05/05/17 18:45 05/08/17 11:53 Enalaprilat (Vasotec Inj) 1.25 mg Q6H PRN IV PUSH SBP>160, DBP>90 05/06/17 13:00 05/08/17 04:29 Atorvastatin Calcium (Lipitor) 20 mg DAILY PO 05/07/17 09:00 05/08/17 09:03 Miscellaneous (Pill Splitter) 1 ea UNSCH PRN OTHER SEE LABEL COMMENTS 05/06/17 12:45 Nicardipine HCl 25 mg/Sodium Chloride 250 ml @ 50 mls/hr TITRATE PRN IV BP CONTROL 05/08/17 10:00 Lisinopril (Prinivil) 10 mg BID PO 05/08/17 21:00 Amlodipine Besylate (Norvasc) 5 mg DAILY PO 05/08/17 09:30 05/08/17 11:52 Hydralazine HCl (Apresoline) 25 mg Q8H PO 05/08/17 10:00 05/08/17 11:52 Miscellaneous (Pill Splitter) 1 ea UNSCH PRN OTHER SEE LABEL COMMENTS 05/08/17 10:00 (Lisset Vizcarra) Medical Decision Making MDM Remarks 1. 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 There is a nondisplaced right occipital skull bone fracture also. There is a slight progression of these contusions as a hemorrhage in the followup CT scan but again without mass effect. 2. It us unclear whether he had a near-syncopal episode or he fell because of the intoxication and then suffered from this traumatic brain injury. 3. heart ischemia per stress test 4. 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 Traci Guzman and Dr. Dyer (Lisset Vizcarra) Attending Statement The exam, history, and the medical decision-making described in the above note were completed with the assistance of the mid-level provider. I reviewed and agree with the findings presented. I attest that I had a [id number] encounter with the patient on the same day, and personally performed and documented my assessment and findings in the medical record. (Gavin Aviles MD) Lisset Vizcarra May 08, 2017 11:05 Gavin Aviles MD May 13, 2017 22:05
--- NOTE | 2017-05-08 11:06 | HHI.NSPN ---
(Lisset Vizcarra) Note Status Status: Progress Note (Lisset Vizcarra) Interval History Interval History 66-year-old gentleman who presented to [facility] emergency room apparently he was drinking beer and relates that he passed out and fell and struck his head on concrete floor. Complains of headache although at this point denies any nausea or vomiting, double vision, or blurred vision. Chronic neck discomfort which is not worse. CT scan of the head obtained initially around midnight ratios the right small cerebellar hemisphere contusion along with multiple left frontal polar area contusions and traumatic subarachnoid hemorrhage in the frontal aspect and lateral Sylvian fissure aspect. He also has a nondisplaced right occipital bone fracture. CT of the cervical spine reveals extensive degenerate changes without any fractures. He was transfer to [facility] and has been monitored and neurologically remained stable. A followup CT scan this morning reveals progression of the contusions involving the left frontal lobe along with a right cerebellar hemisphere and left the insula with a stable left frontal polar 6 mm subdural without any mass effect or midline shift. 05/04: Pt awake and alert. Denies headache, nausea, vomiting, chest pain, sob , weakness. Pt agitated this morning. Pt and states he didn't drink enough to pass out and that he has had 1 near syncopal episode and 2 syncopal episodes in the last year and has had evaluation at [facility] in [place] and states nothing was found although doesn't recall seeing a Deckhand Engineer and states he never followed up with anyone. He states he doesn't see a pcp. 05/05: Pt awakens to voice. Complains of headache. No nausea or vomiting. Had stress test this morning. No chest pain or sob. 05/06: Pt awakens to voice. Denies headache currently. No nausea or vomiting. Follows commands. No chest pain or sob. RN states pt was confused earlier and tried to leave. 05/07: The patient is awake and fairly alert. He does state that he has intermittently had a headache and dizziness. Nursing reports that so far today the patient has been oriented to person, place and time, but during the night he did occasionally have an episode of confusion. 05/08: patient seen this morning during rounds. continues with elevated uncontrolled blood pressure. unhappy as medical physician has not seen the patient despite consultation on 05/06 for blood pressure management. we have started on Cardizem drip now. remains confused but reports mental status has been stable. (Lisset Vizcarra) Labs, Micro, & Vital Signs Results Date Time Temp Pulse Resp B/P (MAP) Pulse Ox O2 Delivery O2 Flow Rate FiO2 05/08/17 09:21 56 195/88 05/08/17 06:00 60 05/08/17 04:00 98.2 60 16 168/100 (122) 96 05/08/17 04:00 60 05/08/17 02:00 61 05/08/17 00:00 98.8 60 13 145/89 (107) 95 05/08/17 00:00 52 05/07/17 22:00 60 05/07/17 20:36 94 05/07/17 20:00 97.9 60 16 156/83 (107) 96 05/07/17 20:00 60 05/07/17 19:00 96 Room Air 05/07/17 18:56 12 05/07/17 18:00 52 05/07/17 17:12 98 21 05/07/17 16:00 56 05/07/17 16:00 98.2 63 14 153/82 (105) 97 05/07/17 14:00 59 05/07/17 12:00 98.2 62 14 155/91 (112) 97 05/07/17 12:00 73 Constitutional Vital Signs Date Time Temp Pulse Resp B/P (MAP) Pulse Ox O2 Delivery O2 Flow Rate FiO2 05/08/17 09:21 56 195/88 05/08/17 06:00 60 05/08/17 04:00 98.2 60 16 168/100 (122) 96 05/08/17 04:00 60 05/08/17 02:00 61 05/08/17 00:00 98.8 60 13 145/89 (107) 95 05/08/17 00:00 52 05/07/17 22:00 60 05/07/17 20:36 94 05/07/17 20:00 97.9 60 16 156/83 (107) 96 05/07/17 20:00 60 05/07/17 19:00 96 Room Air 05/07/17 18:56 12 05/07/17 18:00 52 05/07/17 17:12 98 21 05/07/17 16:00 56 05/07/17 16:00 98.2 63 14 153/82 (105) 97 05/07/17 14:00 59 05/07/17 12:00 98.2 62 14 155/91 (112) 97 05/07/17 12:00 73 (Lisset Vizcarra) Physical Exam Sitting up in chair, nods to questions. Conversing minimally. Motor: moving all four extremities symmetrically (Lisset Vizcarra) Medications Current Medications Current Medications Medications (Trade) Dose Ordered Sig/Mayra Route PRN Reason Start Time Stop Time Status Last Admin Dose Admin Sodium Chloride (NS Flush) 2 ml UNSCH PRN IV FLUSH FLUSH AFTER USING IV ACCESS 05/03/17 02:00 Sodium Chloride (NS Flush) 2 ml BID IV FLUSH 05/03/17 09:00 05/08/17 09:00 Levetriacetam (Keppra) 500 mg Q12H PO 05/03/17 09:00 05/08/17 09:01 Lorazepam (Ativan Inj) 1 mg Q1H PRN IV PUSH SEIZURES 05/03/17 02:00 Docusate Sodium (Colace) 100 mg BID PO 05/03/17 09:00 05/08/17 09:02 Magnesium Hydroxide (Milk Of Magnesia Liq) 30 ml DAILY PRN PO CONSTIPATION 05/03/17 02:00 Al Hydrox/Mg Hydrox/Simethicone (Mag-Al Plus Susp Liq) 30 ml Q6H PRN PO DYSPEPSIA 05/03/17 02:00 Pantoprazole Sodium (Protonix) 40 mg DAILY PO 05/03/17 09:00 05/08/17 09:00 Ondansetron HCl (Zofran Inj) 4 mg Q6H PRN IV PUSH NAUSEA OR VOMITING 05/03/17 02:00 05/08/17 09:13 Promethazine HCl (Phenergan Inj) 25 mg Q4H PRN IM NAUSEA OR VOMITING 05/03/17 02:00 05/03/17 05:11 Calcium Gluconate 1 gm/Sodium Chloride 110 ml @ 110 mls/hr UNSCH PRN IV SEE LABEL COMMENTS 05/03/17 02:00 Potassium Chloride 100 ml @ 50 mls/hr UNSCH PRN IV POTASSIUM LESS THAN 4 05/03/17 02:00 Magnesium Sulfate 2 gm/Sodium Chloride 104 ml @ 100 mls/hr UNSCH PRN IV MAGNESIUM LESS THAN 2 05/03/17 02:00 Acetaminophen/ Hydrocodone Bitart ([place] 10-325 Mg) 1 tab Q4H PRN PO PAIN SCALE 1 TO 5 05/03/17 02:00 05/07/17 04:39 Acetaminophen/ Hydrocodone Bitart ([place] 10-325 Mg) 2 tab Q4H PRN PO PAIN SCALE 6 TO 10 05/03/17 02:00 05/08/17 09:00 Morphine Sulfate (Morphine Inj) 2 mg Q2H PRN IV PUSH breakthorugh pain> 6 05/03/17 02:00 05/08/17 05:41 Labetalol HCl (Trandate Inj) 10 mg Q1H PRN IV PUSH SYS BP GREATER THAN 170 MMHG 05/03/17 02:00 05/08/17 07:47 Clonidine (Catapres) 0.1 mg Q6H PRN PO SYS BP GREATER THAN 170 MMHG 05/03/17 02:00 05/08/17 06:37 Acetaminophen (Tylenol) 650 mg Q4H PRN PO TEMPERATURE > 101.5 F 05/03/17 02:00 Bacitracin (Baciguent Oint) 1 applic BID TOP 05/03/17 09:00 05/08/17 09:00 Menthol ([place] Chasidy) 1 lozenge UNSCH PRN BUCCAL SORE THROAT 05/03/17 02:00 Zolpidem Tartrate (Ambien) 5 mg HS PRN PO INSOMNIA 05/03/17 02:00 Albuterol Sulfate (Albuterol Neb) 2.5 mg Q4HR NEB PRN NEB WHEEZING 05/03/17 02:00 Nicardipine HCl 25 mg/Sodium Chloride 250 ml @ 50 mls/hr TITRATE PRN IV Blood pressure management 05/03/17 02:00 05/08/17 09:21 Gabapentin (Neurontin) 100 mg BID PO 05/03/17 09:00 05/08/17 09:01 Potassium Chloride/Sodium Chloride 1,000 ml @ 80 mls/hr [id number] IV 05/05/17 18:45 05/08/17 11:53 Enalaprilat (Vasotec Inj) 1.25 mg Q6H PRN IV PUSH SBP>160, DBP>90 05/06/17 13:00 05/08/17 04:29 Atorvastatin Calcium (Lipitor) 20 mg DAILY PO 05/07/17 09:00 05/08/17 09:03 Miscellaneous (Pill Splitter) 1 ea UNSCH PRN OTHER SEE LABEL COMMENTS 05/06/17 12:45 Nicardipine HCl 25 mg/Sodium Chloride 250 ml @ 50 mls/hr TITRATE PRN IV BP CONTROL 05/08/17 10:00 Lisinopril (Prinivil) 10 mg BID PO 05/08/17 21:00 Amlodipine Besylate (Norvasc) 5 mg DAILY PO 05/08/17 09:30 05/08/17 11:52 Hydralazine HCl (Apresoline) 25 mg Q8H PO 05/08/17 10:00 05/08/17 11:52 Miscellaneous (Pill Splitter) 1 ea UNSCH PRN OTHER SEE LABEL COMMENTS 05/08/17 10:00 (Lisset Vizcarra) Medical Decision Making MDM Remarks 1. 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 There is a nondisplaced right occipital skull bone fracture also. There is a slight progression of these contusions as a hemorrhage in the followup CT scan but again without mass effect. 2. It us unclear whether he had a near-syncopal episode or he fell because of the intoxication and then suffered from this traumatic brain injury. 3. heart ischemia per stress test 4. 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 Traci Guzman and Dr. Dyer (Lisset Vizcarra) Attending Statement The exam, history, and the medical decision-making described in the above note were completed with the assistance of the mid-level provider. I reviewed and agree with the findings presented. I attest that I had a [id number] encounter with the patient on the same day, and personally performed and documented my assessment and findings in the medical record. (Gavin Aviles MD) Lisset Vizcarra May 08, 2017 11:05 Gavin Aviles MD May 13, 2017 22:05
[2017-05-08] MEDS: amLODIPine BESYLATE 5 MG TAB PO SCH (11:52)
[2017-05-08] MEDS: hydrALAZINE HCL 50 MG TAB PO SCH ×2 (11:52→18:00)
[2017-05-08] MEDS: NS + KCL 20 MEQ INJ 1,000 ML IV SCH (11:53)
[2017-05-09] VITALS (12 sets, daily range): BP systolic 123–158; BP diastolic 58–84; PULSE 53–78; RESP 10–19; TEMP 97.7–98.7; O2SAT 96–98
[2017-05-09] MEDS: ACETAMINOPHEN/HYDROcodone 325 MG/10 MG TAB PO PRN ×4 (00:39→18:15)
[2017-05-09] MEDS: NS + KCL 20 MEQ INJ 1,000 ML IV SCH ×2 (01:19→12:45)
[2017-05-09] MEDS: hydrALAZINE HCL 50 MG TAB PO SCH ×3 (02:23→18:00)
[2017-05-09] MEDS: ATORVASTATIN 20 MG TAB PO SCH (07:44)
[2017-05-09] MEDS: LISINOPRIL 10 MG TAB PO SCH ×2 (07:44→20:43)
[2017-05-09] MEDS: amLODIPine BESYLATE 5 MG TAB PO SCH (07:44)
[2017-05-09] MEDS: PANTOPRAZOLE SOD 40 MG DELAYED RELEASE TAB PO SCH (07:44)
[2017-05-09] MEDS: levETIRAcetam 500 MG TAB PO SCH ×2 (07:44→20:43)
[2017-05-09] MEDS: GABAPENTIN 100 MG CAP PO SCH ×2 (07:44→20:43)
[2017-05-09] MEDS: DOCUSATE SODIUM 100 MG CAP PO SCH ×2 (07:44→20:42)
[2017-05-09] MEDS: BACITRACIN TOP OINT 15 GM TUBE TOP SCH ×2 (07:45→20:44)
[2017-05-09] MEDS: SODIUM CHLORIDE 0.9% FLUSH 10 ML FLUSH IV FLUSH SCH ×2 (07:45→20:43)
[2017-05-09 09:51] LABS: BICARBONATE 24.9 MEQ/L (21.0-32.0); CALCIUM 8.8 MG/DL (8.5-10.1); CREATININE 0.67 MG/DL (0.60-1.30); MAGNESIUM 2.2 MG/DL (1.5-2.5)
--- NOTE | 2017-05-09 12:58 | HHI.PR ---
Subjective Remarks Follow-up for intracranial bleed and uncontrolled hypertension Patient stated that headache has improved drastically. He also stated that he is doing a lot better. His is at the bedside during the interview. She stated that he is doing a lot better today and that she is happy with the results today. She stated that patient saw his friends this morning and was a lot more alert. Patient has no complaints. He continues to not have an appetite. Otherwise no other events. Discussed with patient's nurse. Objective Vitals Vital Signs Date Time Temp Pulse Resp B/P (MAP) Pulse Ox O2 Delivery O2 Flow Rate FiO2 05/09/17 10:00 58 05/09/17 08:54 11 05/09/17 08:00 97.7 53 10 158/83 (108) 98 05/09/17 08:00 53 05/09/17 07:44 15 05/09/17 06:00 58 05/09/17 05:06 60 149/73 05/09/17 04:23 78 136/74 05/09/17 04:00 98.3 68 19 123/58 (79) 97 05/09/17 04:00 70 05/09/17 02:00 76 05/09/17 00:00 97.8 68 16 139/63 (88) 97 05/09/17 00:00 58 05/08/17 22:35 70 135/77 05/08/17 22:11 75 151/70 05/08/17 22:00 80 05/08/17 20:00 97.9 70 20 135/65 (88) 97 05/08/17 20:00 82 05/08/17 19:30 70 125/66 05/08/17 19:00 70 160/70 05/08/17 18:00 62 05/08/17 16:00 97.6 60 13 155/72 (99) 96 05/08/17 16:00 60 05/08/17 14:00 110 I/O 05/08/17 05/08/17 05/08/17 05/09/17 05/09/17 05/09/17 07:00 15:00 23:00 07:00 15:00 23:00 Intake Total 875 ml 1173 ml 1263 ml Output Total 1530 ml 1600 ml Balance -655 ml 1173 ml -337 ml Intake Oral 240 ml IV Total 875 ml 933 ml 1263 ml Output Urine Total 1530 ml 1600 ml # Voids 2 # Bowel Movements 0 0 Result Diagram: 05/09/17 0851 Imaging Last Impressions Head CT 05/07/17 0600 Signed Impressions: Service Date/Time: Sunday, May 07, 2017 04:24 - CONCLUSION: 1. Evolving left frontal, left parietal and right cerebellar hemorrhages. 2. Subdural hemorrhage the left frontal region has not significantly changed. 3. Decreasing subarachnoid hemorrhage bilaterally. Marc Castelan MD Myocardial Perfusion Scan Nuc Med 05/05/17 0000 Signed Impressions: Service Date/Time: Friday, May 05, 2017 09:29 - CONCLUSION: Several areas is suspected mild ischemia in the septum and inferior lateral wall and inferior apex. RISK CATEGORY: Intermediate (1-3%% Annual Mortality Rate) Darin Murray MD Cervical Spine CT 05/03/17 0001 Signed Impressions: Service Date/Time: April 00:14 - CONCLUSION: 1. Moderate degenerative changes as described above. There is no evidence of acute fracture. 2. Nondisplaced occipital bone fracture Phillip Torres MD Carotid Artery Ultrasound 05/03/17 0000 Signed Impressions: Service Date/Time: April 13:24 - CONCLUSION: Normal examination for a patient of this age. Keyur Jimenez MD Objective Remarks GENERAL: This is a well-nourished, well-developed patient, in no apparent distress who is laying in bed answering questions appropriately. CARDIOVASCULAR: Regular rate and rhythm without murmurs, gallops, or rubs. RESPIRATORY: Clear to auscultation. Breath sounds equal bilaterally. No wheezes , rales, or rhonchi. GASTROINTESTINAL: Abdomen soft, non-tender, nondistended. No hepato-splenomegaly , or palpable masses. No guarding. MUSCULOSKELETAL: Extremities without clubbing, cyanosis, or edema. No joint tenderness, effusion, or edema noted. No calf tenderness. Negative Homans sign bilaterally. NEUROLOGICAL: Awake and alert and answers questions appropriately. Cranial nerves II through XII intact. Motor and sensory grossly within normal limits. Five out of 5 muscle strength in all muscle groups. Medications and IVs Current Medications Sodium Chloride (NS Flush) 2 ml UNSCH PRN IV FLUSH FLUSH AFTER USING IV ACCESS ; Start 05/03/17 at 02:00 Sodium Chloride (NS Flush) 2 ml BID IV FLUSH Last administered on 05/09/17 07 :45; Start 05/03/17 at 09:00 Levetriacetam (Keppra) 500 mg Q12H PO Last administered on 05/09/17 07:44; Start 05/03/17 at 09:00 Lorazepam (Ativan Inj) 1 mg Q1H PRN IV PUSH SEIZURES; Start 05/03/17 at 02:00 Docusate Sodium (Colace) 100 mg BID PO Last administered on 05/09/17 07:44; Start 05/03/17 at 09:00 Magnesium Hydroxide (Milk Of Magnesia Liq) 30 ml DAILY PRN PO CONSTIPATION; Start 05/03/17 at 02:00 Al Hydrox/Mg Hydrox/Simethicone (Mag-Al Plus Susp Liq) 30 ml Q6H PRN PO DYSPEPSIA; Start 05/03/17 at 02:00 Pantoprazole Sodium (Protonix) 40 mg DAILY PO Last administered on 05/09/17 07:44; Start 05/03/17 at 09:00 Ondansetron HCl (Zofran Inj) 4 mg Q6H PRN IV PUSH NAUSEA OR VOMITING Last administered on 05/08/17 09:13; Start 05/03/17 at 02:00 Promethazine HCl (Phenergan Inj) 25 mg Q4H PRN IM NAUSEA OR VOMITING Last administered on 05/03/17 05:11; Start 05/03/17 at 02:00 Calcium Gluconate 1 gm/Sodium Chloride 110 ml @ 110 mls/hr UNSCH PRN IV SEE LABEL COMMENTS; Start 05/03/17 at 02:00 Potassium Chloride 100 ml @ 50 mls/hr UNSCH PRN IV POTASSIUM LESS THAN 4; Start 05/03/17 at 02:00 Magnesium Sulfate 2 gm/Sodium Chloride 104 ml @ 100 mls/hr UNSCH PRN IV MAGNESIUM LESS THAN 2; Start 05/03/17 at 02:00 Acetaminophen/ Hydrocodone Bitart ([place] 10-325 Mg) 1 tab Q4H PRN PO PAIN SCALE 1 TO 5 Last administered on 05/09/17 07:54; Start 05/03/17 at 02:00 Acetaminophen/ Hydrocodone Bitart ([place] 10-325 Mg) 2 tab Q4H PRN PO PAIN SCALE 6 TO 10 Last administered on 05/09/17 06:49; Start 05/03/17 at 02:00 Morphine Sulfate (Morphine Inj) 2 mg Q2H PRN IV PUSH breakthorugh pain> 6 Last administered on 05/08/17 05:41; Start 05/03/17 at 02:00 Labetalol HCl (Trandate Inj) 10 mg Q1H PRN IV PUSH SYS BP GREATER THAN 170 MMHG Last administered on 05/08/17 07:47; Start 05/03/17 at 02:00 Clonidine (Catapres) 0.1 mg Q6H PRN PO SYS BP GREATER THAN 170 MMHG Last administered on 05/08/17 06:37; Start 05/03/17 at 02:00 Acetaminophen (Tylenol) 650 mg Q4H PRN PO TEMPERATURE > 101.5 F; Start at 02:00 Bacitracin (Baciguent Oint) 1 applic BID TOP Last administered on 05/08/17 21 :01; Start 05/03/17 at 09:00 Menthol (Iona Chasidy) 1 lozenge UNSCH PRN BUCCAL SORE THROAT; Start 05/03/17 at 02:00 Zolpidem Tartrate (Ambien) 5 mg HS PRN PO INSOMNIA; Start 05/03/17 at 02:00 Albuterol Sulfate (Albuterol Neb) 2.5 mg Q4HR NEB PRN NEB WHEEZING; Start at 02:00 Nicardipine HCl 25 mg/Sodium Chloride 250 ml @ 50 mls/hr TITRATE PRN IV Blood pressure management Last administered on 05/08/17 19:00; Start 05/03/17 at 02 :00 Gabapentin (Neurontin) 100 mg BID PO Last administered on 05/09/17 07:44; Start 05/03/17 at 09:00 Potassium Chloride (KCl) 30 meq ONCE ONCE PO Last administered on 05/03/17 02:21; Start 05/03/17 at 02:15; Stop 05/03/17 at 02:16; Status DC Regadenoson (Lexiscan Inj) 0.4 mg STK-MED ONCE .ROUTE Last administered on 10:08; Start 05/05/17 at 10:08; Stop 05/05/17 at 10:09; Status DC Potassium Chloride/Sodium Chloride 1,000 ml @ 80 mls/hr [id number] IV Last administered on 05/09/17 01:19; Start 05/05/17 at 18:45 Enalaprilat (Vasotec Inj) 1.25 mg Q6H PRN IV PUSH SBP>160, DBP>90 Last administered on 05/08/17 04:29; Start 05/06/17 at 13:00 Aspirin (Ecotrin Ec) 81 mg DAILY PO ; Start 05/06/17 at 13:00; Stop 05/06/17 at 13:00; Status DC Metoprolol Tartrate (Lopressor) 12.5 mg Q12HR PO ; Start 05/06/17 at 21:00; Stop 05/06/17 at 21:00; Status DC Atorvastatin Calcium (Lipitor) 20 mg DAILY PO Last administered on 05/09/17 07:44; Start 05/07/17 at 09:00 Miscellaneous (Pill Splitter) 1 ea UNSCH PRN OTHER SEE LABEL COMMENTS; Start 05/06/17 at 12:45 Lisinopril (Prinivil) 10 mg DAILY PO Last administered on 05/08/17 09:01; Start 05/06/17 at 13:00; Stop 05/08/17 at 09:38; Status DC Hydralazine HCl (Apresoline Inj) 20 mg STK-MED ONCE .ROUTE ; Start 05/08/17 at 08:27; Stop 05/08/17 at 08:28; Status DC Hydralazine HCl (Apresoline Inj) 10 mg NOW ONCE IV ; Start 05/08/17 at 09:00; Stop 05/08/17 at 09:14; Status DC Nicardipine HCl 25 mg/Sodium Chloride 250 ml @ 50 mls/hr TITRATE PRN IV BP CONTROL; Start 05/08/17 at 10:00 Lisinopril (Prinivil) 10 mg BID PO Last administered on 05/09/17 07:44; Start 05/08/17 at 21:00 Hydralazine HCl (Apresoline) 50 mg Q8H PO ; Start 05/08/17 at 10:00; Stop at 10:00; Status DC Amlodipine Besylate (Norvasc) 5 mg DAILY PO Last administered on 05/09/17 07: 44; Start 05/08/17 at 09:30 Hydralazine HCl (Apresoline) 25 mg Q8H PO Last administered on 05/09/17 10:00 ; Start 05/08/17 at 10:00; Stop 05/09/17 at 12:45; Status DC Miscellaneous (Pill Splitter) 1 ea UNSCH PRN OTHER SEE LABEL COMMENTS; Start 05/08/17 at 10:00 Hydralazine HCl (Apresoline) 50 mg Q8H PO ; Start 05/09/17 at 18:00; Status UNV A/P Assessment and Plan 66-year-old male with who presented with head trauma [facility] consulted for medical management on 05/08/2017 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 There is a nondisplaced right occipital skull bone fracture also. -Repeat CT scan of the head showed There is a slight progression of these contusions as a hemorrhage without mass effect. -Confusion and headache are improving. -Management per neurosurgeon. Patient is being managed and the [facility] for frequent neuro exams. -Will get a CT scan if confusion worsens. -PT is following. Uncontrolled hypertension -Blood pressure is improving. He is off the Cardene drip. Patient currently on lisinopril, amlodipine and hydralazine. Will increase hydralazine to 50 mg by mouth 3 times a day and adjust accordingly. Questionable syncope -Patient was found intoxicated with multiple substance. Cardiac workup was done which showed a concerning nuclear stress test. Office Machine Embossograph Operator consulted stated that patient is not a candidate for left heart catheterization due to recent intracranial bleed. He is asymptomatic. -Urine drug screen was positive for alcohol, cannabinoids and opioids. -Office Machine Embossograph Operator recommends a 24-hour Holter monitor as outpatient. -Patient was also started on a statin. -Echo she had a EF of 55-60%. Anorexia -Patient has decreased appetite secondary to primary diagnosis. -Will give patient ensure. Will also consult dietitian to assist. DVT prophylaxis -SCDs -Anticoagulations per primary team. Bianca Cabello MD May 09, 2017 12:58
[2017-05-09] MEDS: ENALAPRILAT 1.25 MG/ML VIAL IV PUSH PRN (15:12)
[2017-05-09] MEDS: cloNIDine HCL 0.1 MG TAB PO PRN (15:12)
--- NOTE | 2017-05-09 17:04 | HHI.NSPN ---
(Brent Weber) History Chief Complaint: Slight headache (Brent Weber) Interval History 66-year-old gentleman who presented to [facility] emergency room apparently he was drinking beer and relates that he passed out and fell and struck his head on concrete floor. Complains of headache although at this point denies any nausea or vomiting, double vision, or blurred vision. Chronic neck discomfort which is not worse. CT scan of the head obtained initially around midnight ratios the right small cerebellar hemisphere contusion along with multiple left frontal polar area contusions and traumatic subarachnoid hemorrhage in the frontal aspect and lateral Sylvian fissure aspect. He also has a nondisplaced right occipital bone fracture. CT of the cervical spine reveals extensive degenerate changes without any fractures. He was transfer to [facility] and has been monitored and neurologically remained stable. A followup CT scan this morning reveals progression of the contusions involving the left frontal lobe along with a right cerebellar hemisphere and left the insula with a stable left frontal polar 6 mm subdural without any mass effect or midline shift. 05/04: Pt awake and alert. Denies headache, nausea, vomiting, chest pain, sob , weakness. Pt agitated this morning. Pt and states he didn't drink enough to pass out and that he has had 1 near syncopal episode and 2 syncopal episodes in the last year and has had evaluation at [facility] in [place] and states nothing was found although doesn't recall seeing a Dental Appliance Repairer and states he never followed up with anyone. He states he doesn't see a pcp. 05/05: Pt awakens to voice. Complains of headache. No nausea or vomiting. Had stress test this morning. No chest pain or sob. 05/06: Pt awakens to voice. Denies headache currently. No nausea or vomiting. Follows commands. No chest pain or sob. RN states pt was confused earlier and tried to leave. 05/07: The patient is awake and fairly alert. He does state that he has intermittently had a headache and dizziness. Nursing reports that so far today the patient has been oriented to person, place and time, but during the night he did occasionally have an episode of confusion. 05/08: patient seen this morning during rounds. continues with elevated uncontrolled blood pressure. unhappy as medical physician has not seen the patient despite consultation on 05/06 for blood pressure management. we have started on Cardizem drip now. remains confused but reports mental status has been stable. 05/09: Patient is drowsy this afternoon when seen. He awakens to verbal stimulation and shortly closes his eyes if not being stimulated. He states he has a slight headache otherwise he is doing "pretty good." The patient is not on any drips. (Brent Weber) System Review Comments Neurological: Headache. The remainder of the ROS is negative. (Brent Weber) Exam Results 05/07/17 05/07/17 05/08/17 05/08/17 05/09/17 05/09/17 06:00 18:00 06:00 18:00 06:00 18:00 Intake Total 1120 ml 1100 ml 875 ml 1173 ml 1263 ml Output Total 550 ml 500 ml 1530 ml 1600 ml Balance 570 ml 600 ml -655 ml 1173 ml 1263 ml -1600 ml Intake Oral 120 ml 100 ml 240 ml IV Total 1000 ml 1000 ml 875 ml 933 ml 1263 ml Output Urine Total 550 ml 500 ml 1530 ml 1600 ml # Voids 2 # Bowel Movements 0 0 0 0 Vital Signs Date Time Temp Pulse Resp B/P (MAP) Pulse Ox O2 Delivery O2 Flow Rate FiO2 05/09/17 14:00 58 05/09/17 12:00 74 05/09/17 12:00 97.9 73 16 156/83 (107) 96 05/09/17 10:00 58 05/09/17 08:54 11 05/09/17 08:00 97.7 53 10 158/83 (108) 98 05/09/17 08:00 53 05/09/17 07:44 15 05/09/17 06:00 58 05/09/17 05:06 60 149/73 05/09/17 04:23 78 136/74 05/09/17 04:00 98.3 68 19 123/58 (79) 97 05/09/17 04:00 70 05/09/17 02:00 76 05/09/17 00:00 97.8 68 16 139/63 (88) 97 05/09/17 00:00 58 05/08/17 22:35 70 135/77 05/08/17 22:11 75 151/70 05/08/17 22:00 80 05/08/17 20:00 97.9 70 20 135/65 (88) 97 05/08/17 20:00 82 05/08/17 19:30 70 125/66 05/08/17 19:00 70 160/70 05/08/17 18:00 62 05/08/17 16:00 97.6 60 13 155/72 (99) 96 05/08/17 16:00 60 05/08/17 14:00 110 05/08/17 12:00 98.1 70 15 134/74 (94) 93 05/08/17 12:00 70 05/08/17 10:00 64 05/08/17 09:21 56 195/88 05/08/17 08:00 54 05/08/17 08:00 98.4 54 7 169/93 (118) 95 05/08/17 07:00 95 Room Air 05/08/17 06:00 60 05/08/17 04:00 98.2 60 16 168/100 (122) 96 05/08/17 04:00 60 05/08/17 02:00 61 05/08/17 00:00 98.8 60 13 145/89 (107) 95 05/08/17 00:00 52 05/07/17 22:00 60 05/07/17 20:36 94 05/07/17 20:00 97.9 60 16 156/83 (107) 96 05/07/17 20:00 60 05/07/17 19:00 96 Room Air 05/07/17 18:56 12 05/07/17 18:00 52 05/07/17 17:12 98 21 05/07/17 16:00 56 05/07/17 16:00 98.2 63 14 153/82 (105) 97 05/07/17 14:00 59 05/07/17 12:00 98.2 62 14 155/91 (112) 97 05/07/17 12:00 73 05/07/17 10:00 58 05/07/17 08:00 98.2 60 14 142/85 (104) 97 05/07/17 08:00 60 05/07/17 07:00 98 Room Air 05/07/17 06:00 52 05/07/17 04:00 98.0 55 15 152/96 (114) 97 05/07/17 04:00 55 05/07/17 02:00 51 05/07/17 00:00 97.9 54 16 145/69 (94) 97 05/07/17 00:00 54 05/06/17 22:00 62 05/06/17 20:00 53 05/06/17 20:00 98.0 53 18 177/82 (113) 96 05/06/17 19:00 97 Room Air 05/06/17 18:00 47 (Brent Weber) Physical Examination GENERAL: Asleep, awakens to voice, slow to interact and will close eyes if not being stimulated, no apparent distress, affect flat. HEENT: Normocephalic, occipital scalp abrasion NTTP. PERRLA 2 mm brisk, EOMI. MMM & pink, tongue midline to protrusion. NECK: Active ROM w/o pain, no JVD, trachea midline. RESPIRATORY/CHEST: CTAB w/o W/R/R, equal excursion, nonlaboured, on RA. CARDIOVASCULAR: S1S2 w/RRR w/o M/G/R, radial & pedal pulses 2+ bilaterally, cap refill < 2 sec, no pedal edema. Monitor is sinus rhythm w/o ectopy. GASTROINTESTINAL: Abdomen soft, nontender, positive bowel sounds. EXTREMITIES: LANDA w/o difficulty, NTTP, no evident deformity or clubbing, small abrasion to distal right lower leg. SKIN: Warm, dry & intact except for abrasions to the occipital scalp and distal right lower leg. NEUROLOGIC: Awakens to voice, oriented to person, place and year but not month. Speech clear & appropriate but slow in response. CN II-XII appear grossly intact. Sensation is intact to light touch to all extremities. Motor strength is 5/5 to all major flexion & extension muscle groups. (Brent Weber) Lab, Micro, Other Results Recent Impressions Head CT 05/07/17 0600 Signed Impressions: Service Date/Time: Sunday, May 07, 2017 04:24 - CONCLUSION: 1. Evolving left frontal, left parietal and right cerebellar hemorrhages. 2. Subdural hemorrhage the left frontal region has not significantly changed. 3. Decreasing subarachnoid hemorrhage bilaterally. Marc Castelan MD Laboratory Tests Test 05/09/17 08:51 Blood Urea Nitrogen 17 MG/DL Creatinine 0.67 MG/DL Random Glucose 114 MG/DL Calcium Level 8.8 MG/DL Magnesium Level 2.2 MG/DL Sodium Level 135 MEQ/L Potassium Level 3.8 MEQ/L Chloride Level 102 MEQ/L Carbon Dioxide Level 24.9 MEQ/L Anion Gap 8 MEQ/L Estimat Glomerular Filtration Rate 119 ML/MIN (Brent Weber) Medical Decision Making Impression and Plan Impression: 1. 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 There is a nondisplaced right occipital skull bone fracture also. There is a slight progression of these contusions as a hemorrhage in the followup CT scan but again without mass effect. 2. It is unclear whether he had a near-syncopal episode or he fell because of the intoxication and then suffered from this traumatic brain injury. Pts states he has had 1 near syncopal episode and 2 syncopal episodes. She states he was evaluated before at [facility] and had a workup but nothing was found per pt and his . She is requesting a Cardiology evaluation. 3. Heart ischemia per stress test 4. Hypertension, improved Patient still with headache, slow to response, slight confusion, otherwise neurologically intact. Repeat CT brain with evolving left frontal, left parietal & right cerebellar haemorrhages, stable left frontal SDH, decreased SAH. Cleared by Cardiology for discharge w/outpatient follow up. Plan: Discussed plan of care with patient and Nursing. Frequent neuro checks. Stat CT brain for any worsening in neuro status. Pain control. Hospitalist for medical management. From a NSGY perspective the patient may transfer to a regular med/surg floor when medically indicated. (Brent Weber) Attending Statement The exam, history, and the medical decision-making described in the above note were completed with the assistance of the mid-level provider. I reviewed and agree with the findings presented. I attest that I had a [id number] encounter with the patient on the same day, and personally performed and documented my assessment and findings in the medical record. On examination this evening patient is up in a chair. He is a little more lethargic this evening but was given morphine and 20 mg of hydrocodone. Discussed with nursing staff. We will decrease pain medication dosage. He is otherwise stable for transfer to floor from neurosurgery standpoint (Hernan Woodward MD) Brent Weber May 09, 2017 17:04 Hernan Woodward MD May 09, 2017 21:06
[2017-05-09] MEDS: MORPHINE SULFATE 4 MG/ML INJ IV PUSH PRN (18:15)
[2017-05-10] VITALS (13 sets, daily range): BP systolic 139–161; BP diastolic 69–93; PULSE 63–97; RESP 14–20; TEMP 97.5–98.6; O2SAT 95–98
[2017-05-10] MEDS: NS + KCL 20 MEQ INJ 1,000 ML IV SCH ×3 (00:05→22:55)
[2017-05-10] MEDS: MORPHINE SULFATE 4 MG/ML INJ IV PUSH PRN (00:05)
[2017-05-10] MEDS: hydrALAZINE HCL 50 MG TAB PO SCH ×3 (02:25→18:00)
[2017-05-10] MEDS: ACETAMINOPHEN/HYDROcodone 325 MG/10 MG TAB PO PRN ×2 (02:25→18:52)
[2017-05-10 05:05] LABS: HEMATOCRIT 43.8 % (39.0-51.0); HEMOGLOBIN 15.4 GM/DL (13.0-17.0); MEAN CELL VOLUME 93.8 FL (80.0-100.0); MEAN CORPUSCULAR HGB CONC 35.2 % (32.0-36.0); MEAN PLATELET VOLUME 10.4 FL (7.0-11.0); PLATELET COUNT 199 TH/MM3 (150-450); RED BLOOD COUNT 4.67 MIL/MM3 (4.50-5.90); RED CELL DISTRIBUTION WIDTH 13.5 % (11.6-17.2); WHITE BLOOD COUNT 10.9 TH/MM3 (4.0-11.0)
[2017-05-10 05:22] LABS: BICARBONATE 23.9 MEQ/L (21.0-32.0); CALCIUM 9.2 MG/DL (8.5-10.1); CREATININE 0.63 MG/DL (0.60-1.30)
[2017-05-10] MEDS: GABAPENTIN 100 MG CAP PO SCH ×2 (08:24→21:19)
[2017-05-10] MEDS: SODIUM CHLORIDE 0.9% FLUSH 10 ML FLUSH IV FLUSH SCH ×2 (08:24→21:19)
[2017-05-10] MEDS: LISINOPRIL 10 MG TAB PO SCH (08:24)
[2017-05-10] MEDS: PANTOPRAZOLE SOD 40 MG DELAYED RELEASE TAB PO SCH (08:24)
[2017-05-10] MEDS: amLODIPine BESYLATE 5 MG TAB PO SCH (08:24)
[2017-05-10] MEDS: DOCUSATE SODIUM 100 MG CAP PO SCH ×2 (08:24→21:19)
[2017-05-10] MEDS: ATORVASTATIN 20 MG TAB PO SCH (08:24)
[2017-05-10] MEDS: levETIRAcetam 500 MG TAB PO SCH ×2 (08:24→21:19)
[2017-05-10] MEDS: BACITRACIN TOP OINT 15 GM TUBE TOP SCH ×2 (08:25→21:20)
[2017-05-10] MEDS: ACETAMINOPHEN/HYDROcodone 325 MG/5 MG TAB PO PRN (08:38)
[2017-05-10] MEDS: cloNIDine HCL 0.1 MG TAB PO PRN (10:31)
[2017-05-10] MEDS ORDERED: LISINOPRIL 10 MG TAB PO ONE (13:30)
--- NOTE | 2017-05-10 14:43 | HHI.PR ---
Subjective Remarks Follow-up for intracranial bleed and hypertension Patient's at the bedside upset. She stated "why isnt his blood pressure controlled yet." She was very upset that his blood pressure is not controlled yet. Patient is not on the Cardene drip. He was able to wean off the Cardene drip. Patient is awake and sitting in chair but does not talk a lot. He stated that he has a headache still but it is the same and has not worsened. Denies any visual changes. Otherwise he has no complaints. Pain medication was decreased yesterday due to sedation. Denied any new focal neurological deficits. Per patient's he is now drinking the supplement. Objective Vitals Vital Signs Date Time Temp Pulse Resp B/P (MAP) Pulse Ox O2 Delivery O2 Flow Rate FiO2 05/10/17 14:00 81 05/10/17 12:00 82 05/10/17 12:00 98.4 67 19 144/82 (102) 96 05/10/17 10:00 98 21 05/10/17 10:00 88 05/10/17 08:00 84 05/10/17 08:00 98.1 77 16 161/93 (115) 98 05/10/17 06:00 72 05/10/17 04:00 79 05/10/17 04:00 98.6 67 15 147/82 (103) 97 05/10/17 02:00 77 05/10/17 00:00 98.0 78 14 155/80 (105) 97 05/10/17 00:00 63 05/09/17 22:00 57 05/09/17 20:00 55 05/09/17 20:00 98.4 67 13 138/83 (101) 97 05/09/17 18:37 12 05/09/17 18:00 76 05/09/17 16:00 78 05/09/17 16:00 98.7 73 17 154/84 (107) 96 I/O 05/09/17 05/09/17 05/09/17 05/10/17 05/10/17 05/10/17 07:00 15:00 23:00 07:00 15:00 23:00 Intake Total 1263 ml 240 ml 1300 ml Output Total 1600 ml 1050 ml 850 ml Balance -337 ml -810 ml 450 ml Intake Oral 240 ml 300 ml IV Total 1263 ml 1000 ml Output Urine Total 1600 ml 1050 ml 850 ml # Bowel Movements 0 0 Result Diagram: 05/10/1735305/10/174 Objective Remarks GENERAL: This is a well-nourished, well-developed patient, in no apparent distress who is sitting in the chair. CARDIOVASCULAR: Regular rate and rhythm without murmurs, gallops, or rubs. RESPIRATORY: Clear to auscultation. Breath sounds equal bilaterally. No wheezes , rales, or rhonchi. GASTROINTESTINAL: Abdomen soft, non-tender, nondistended. No hepato-splenomegaly , or palpable masses. No guarding. MUSCULOSKELETAL: Extremities without clubbing, cyanosis, or edema. No joint tenderness, effusion, or edema noted. No calf tenderness. Negative Homans sign bilaterally. NEUROLOGICAL: Motor and sensory grossly within normal limits. Patient is sleepy but able to arouse. Does not want to answer questions. Medications and IVs Current Medications Sodium Chloride (NS Flush) 2 ml UNSCH PRN IV FLUSH FLUSH AFTER USING IV ACCESS ; Start 05/03/17 at 02:00 Sodium Chloride (NS Flush) 2 ml BID IV FLUSH Last administered on 05/10/17 08 :24; Start 05/03/17 at 09:00 Levetriacetam (Keppra) 500 mg Q12H PO Last administered on 05/10/17 08:24; Start 05/03/17 at 09:00 Lorazepam (Ativan Inj) 1 mg Q1H PRN IV PUSH SEIZURES; Start 05/03/17 at 02:00 Docusate Sodium (Colace) 100 mg BID PO Last administered on 05/10/17 08:24; Start 05/03/17 at 09:00 Magnesium Hydroxide (Milk Of Magnesia Liq) 30 ml DAILY PRN PO CONSTIPATION; Start 05/03/17 at 02:00 Al Hydrox/Mg Hydrox/Simethicone (Mag-Al Plus Susp Liq) 30 ml Q6H PRN PO DYSPEPSIA; Start 05/03/17 at 02:00 Pantoprazole Sodium (Protonix) 40 mg DAILY PO Last administered on 05/10/17 08:24; Start 05/03/17 at 09:00 Ondansetron HCl (Zofran Inj) 4 mg Q6H PRN IV PUSH NAUSEA OR VOMITING Last administered on 05/08/17 09:13; Start 05/03/17 at 02:00 Promethazine HCl (Phenergan Inj) 25 mg Q4H PRN IM NAUSEA OR VOMITING Last administered on 05/03/17 05:11; Start 05/03/17 at 02:00 Calcium Gluconate 1 gm/Sodium Chloride 110 ml @ 110 mls/hr UNSCH PRN IV SEE LABEL COMMENTS; Start 05/03/17 at 02:00 Potassium Chloride 100 ml @ 50 mls/hr UNSCH PRN IV POTASSIUM LESS THAN 4; Start 05/03/17 at 02:00 Magnesium Sulfate 2 gm/Sodium Chloride 104 ml @ 100 mls/hr UNSCH PRN IV MAGNESIUM LESS THAN 2; Start 05/03/17 at 02:00 Acetaminophen/ Hydrocodone Bitart ([place] 10-325 Mg) 1 tab Q4H PRN PO PAIN SCALE 1 TO 5 Last administered on 05/09/17 07:54; Start 05/03/17 at 02:00; Stop 05/09/17 at 21:09; Status DC Acetaminophen/ Hydrocodone Bitart ([place] 10-325 Mg) 2 tab Q4H PRN PO PAIN SCALE 6 TO 10 Last administered on 05/09/17 18:15; Start 05/03/17 at 02:00; Stop 05/09/17 at 21:09; Status DC Morphine Sulfate (Morphine Inj) 2 mg Q2H PRN IV PUSH breakthorugh pain> 6 Last administered on 05/10/17 00:05; Start 05/03/17 at 02:00 Labetalol HCl (Trandate Inj) 10 mg Q1H PRN IV PUSH SYS BP GREATER THAN 170 MMHG Last administered on 05/08/17 07:47; Start 05/03/17 at 02:00 Clonidine (Catapres) 0.1 mg Q6H PRN PO SYS BP GREATER THAN 170 MMHG Last administered on 05/10/17 10:31; Start 05/03/17 at 02:00 Acetaminophen (Tylenol) 650 mg Q4H PRN PO TEMPERATURE > 101.5 F; Start at 02:00 Bacitracin (Baciguent Oint) 1 applic BID TOP Last administered on 05/10/17 08 :25; Start 05/03/17 at 09:00 Menthol ([place] Chasidy) 1 lozenge UNSCH PRN BUCCAL SORE THROAT; Start 05/03/17 at 02:00 Zolpidem Tartrate (Ambien) 5 mg HS PRN PO INSOMNIA; Start 05/03/17 at 02:00 Albuterol Sulfate (Albuterol Neb) 2.5 mg Q4HR NEB PRN NEB WHEEZING; Start at 02:00 Nicardipine HCl 25 mg/Sodium Chloride 250 ml @ 50 mls/hr TITRATE PRN IV Blood pressure management Last administered on 05/08/17 19:00; Start 05/03/17 at 02 :00 Gabapentin (Neurontin) 100 mg BID PO Last administered on 05/10/17 08:24; Start 05/03/17 at 09:00 Potassium Chloride (KCl) 30 meq ONCE ONCE PO Last administered on 05/03/17 02:21; Start 05/03/17 at 02:15; Stop 05/03/17 at 02:16; Status DC Regadenoson (Lexiscan Inj) 0.4 mg STK-MED ONCE .ROUTE Last administered on 10:08; Start 05/05/17 at 10:08; Stop 05/05/17 at 10:09; Status DC Potassium Chloride/Sodium Chloride 1,000 ml @ 80 mls/hr [id number] IV Last administered on 05/10/17 11:15; Start 05/05/17 at 18:45 Enalaprilat (Vasotec Inj) 1.25 mg Q6H PRN IV PUSH SBP>160, DBP>90 Last administered on 05/09/17 15:12; Start 05/06/17 at 13:00 Aspirin (Ecotrin Ec) 81 mg DAILY PO ; Start 05/06/17 at 13:00; Stop 05/06/17 at 13:00; Status DC Metoprolol Tartrate (Lopressor) 12.5 mg Q12HR PO ; Start 05/06/17 at 21:00; Stop 05/06/17 at 21:00; Status DC Atorvastatin Calcium (Lipitor) 20 mg DAILY PO Last administered on 05/10/17 08:24; Start 05/07/17 at 09:00 Miscellaneous (Pill Splitter) 1 ea UNSCH PRN OTHER SEE LABEL COMMENTS; Start 05/06/17 at 12:45 Lisinopril (Prinivil) 10 mg DAILY PO Last administered on 05/08/17 09:01; Start 05/06/17 at 13:00; Stop 05/08/17 at 09:38; Status DC Hydralazine HCl (Apresoline Inj) 20 mg STK-MED ONCE .ROUTE ; Start 05/08/17 at 08:27; Stop 05/08/17 at 08:28; Status DC Hydralazine HCl (Apresoline Inj) 10 mg NOW ONCE IV ; Start 05/08/17 at 09:00; Stop 05/08/17 at 09:14; Status DC Nicardipine HCl 25 mg/Sodium Chloride 250 ml @ 50 mls/hr TITRATE PRN IV BP CONTROL; Start 05/08/17 at 10:00 Lisinopril (Prinivil) 10 mg BID PO Last administered on 05/10/17 08:24; Start 05/08/17 at 21:00; Stop 05/10/17 at 12:13; Status DC Hydralazine HCl (Apresoline) 50 mg Q8H PO ; Start 05/08/17 at 10:00; Stop at 10:00; Status DC Amlodipine Besylate (Norvasc) 5 mg DAILY PO Last administered on 05/10/17 08: 24; Start 05/08/17 at 09:30 Hydralazine HCl (Apresoline) 25 mg Q8H PO Last administered on 05/09/17 10:00 ; Start 05/08/17 at 10:00; Stop 05/09/17 at 12:45; Status DC Miscellaneous (Pill Splitter) 1 ea UNSCH PRN OTHER SEE LABEL COMMENTS; Start 05/08/17 at 10:00 Hydralazine HCl (Apresoline) 50 mg Q8H PO Last administered on 05/10/17 10:00 ; Start 05/09/17 at 18:00 Acetaminophen/ Hydrocodone Bitart ([place] 10-325 Mg) 1 tab Q4H PRN PO PAIN SCALE 6 TO 10 Last administered on 05/10/17 02:25; Start 05/09/17 at 22:00 Acetaminophen/ Hydrocodone Bitart ([place] 5-325 Mg) 1 tab Q4H PRN PO PAIN SCALE 1 TO 5 Last administered on 05/10/17t 08:38; Start 05/09/17 at 21:15 Lisinopril (Prinivil) 10 mg ONCE ONCE PO ; Start 05/10/17 at 13:30; Stop at 13:31; Status DC Lisinopril (Prinivil) 20 mg DAILY PO ; Start 05/11/17 at 09:00 Lisinopril (Prinivil) 10 mg DAILY@2000 PO ; Start 05/11/17 at 20:00 A/P Assessment and Plan 66-year-old male with who presented with head trauma [facility] consulted for medical management on 05/08/2017 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 There is a nondisplaced right occipital skull bone fracture also. -Repeat CT scan of the head showed There is a slight progression of these contusions as a hemorrhage without mass effect. -Confusion improved but he continues to have a headache. Headache is the same and has not worsened. Due to being sedated neurosurgeon decreased pain medication. -Management per neurosurgeon. -Will get a CT scan if confusion worsens. -PT is following. Uncontrolled hypertension -Patient is off the Cardene drip. Blood pressures labile with some normotensive blood pressure reading. Extensive discussion with patient's and his that labile blood pressure can be due to other factors such as pain in which patient does have a headache. Patient pain medication was decreased yesterday which could explain why he is having more spikes in elevated blood pressure. Hydralazine was increased yesterday to 50 mg by mouth 3 times a day. He is currently on lisinopril 10 mg twice a day and amlodipine. Will increase morning lisinopril to 20 mg daily and continue with night doses of 10 mg daily. Questionable syncope -Patient was found intoxicated with multiple substance. Cardiac workup was done which showed a concerning nuclear stress test. Medical Office Receptionist Assistant consulted stated that patient is not a candidate for left heart catheterization due to recent intracranial bleed. He is asymptomatic. -Urine drug screen was positive for alcohol, cannabinoids and opioids. -Medical Office Receptionist Assistant recommends a 24-hour Holter monitor as outpatient. -Patient was also started on a statin. -Echo she had a EF of 55-60%. Anorexia -Continue with heart healthy diet and Enlive. -web services developer consulted. DVT prophylaxis -SCDs -Anticoagulations per primary team. Discharge Planning All questions were answered to patient and his to their satisfaction. is uncomfortable of patient being transfer out of the [facility] since patient's blood pressure is labile. I explained to patient if he is not on a drip it is unnecessary that he stays in the [facility] and uncontrolled blood pressure can be managed on other floors. Since did not feel comfortable I told her it was okay for patient to stay in the [facility] and we can determine if patient can be transferred out tomorrow. Later after patient was seen requested another provider but would not tell charge nurse, Johanny, why. Discussed with [facility]PAS nurse in regards to 's request and will jovan request. Bianca Cabello MD May 10, 2017 14:43
[2017-05-10] MEDS: ACETAMINOPHEN 325 MG TAB PO PRN (14:54)
--- NOTE | 2017-05-10 15:44 | HHI.NSPN ---
(Lisset Vizcarra) Note Status Status: Progress Note (Lisset Vizcarra) Interval History Interval History 66-year-old gentleman who presented to [facility] emergency room apparently he was drinking beer and relates that he passed out and fell and struck his head on concrete floor. Complains of headache although at this point denies any nausea or vomiting, double vision, or blurred vision. Chronic neck discomfort which is not worse. CT scan of the head obtained initially around midnight ratios the right small cerebellar hemisphere contusion along with multiple left frontal polar area contusions and traumatic subarachnoid hemorrhage in the frontal aspect and lateral Sylvian fissure aspect. He also has a nondisplaced right occipital bone fracture. CT of the cervical spine reveals extensive degenerate changes without any fractures. He was transfer to [facility] and has been monitored and neurologically remained stable. A followup CT scan this morning reveals progression of the contusions involving the left frontal lobe along with a right cerebellar hemisphere and left the insula with a stable left frontal polar 6 mm subdural without any mass effect or midline shift. 05/04: Pt awake and alert. Denies headache, nausea, vomiting, chest pain, sob , weakness. Pt agitated this morning. Pt and states he didn't drink enough to pass out and that he has had 1 near syncopal episode and 2 syncopal episodes in the last year and has had evaluation at [facility] in [place] and states nothing was found although doesn't recall seeing a Data Architect and states he never followed up with anyone. He states he doesn't see a pcp. 05/05: Pt awakens to voice. Complains of headache. No nausea or vomiting. Had stress test this morning. No chest pain or sob. 05/06: Pt awakens to voice. Denies headache currently. No nausea or vomiting. Follows commands. No chest pain or sob. RN states pt was confused earlier and tried to leave. 05/07: The patient is awake and fairly alert. He does state that he has intermittently had a headache and dizziness. Nursing reports that so far today the patient has been oriented to person, place and time, but during the night he did occasionally have an episode of confusion. 05/08: patient seen this morning during rounds. continues with elevated uncontrolled blood pressure. unhappy as medical physician has not seen the patient despite consultation on 05/06 for blood pressure management. we have started on Cardizem drip now. remains confused but reports mental status has been stable. 05/10: patient seen this am during rounds, appears drowsy sitting up in chair. moved all four ext to commands, pupils equal. nursing called this afternoon reports pt remains drowsy and lethargic. he has not received sedatives. dw Dr. Aviles who recs f/u CT Head in the am and EEG. he is on keppra already for sz proph. (Lisset Vizcarra) Labs, Micro, & Vital Signs Results Date Time Temp Pulse Resp B/P (MAP) Pulse Ox O2 Delivery O2 Flow Rate FiO2 05/10/17 14:00 81 05/10/17 12:00 82 05/10/17 12:00 98.4 67 19 144/82 (102) 96 05/10/17 10:00 98 21 05/10/17 10:00 88 05/10/17 08:00 84 05/10/17 08:00 98.1 77 16 161/93 (115) 98 05/10/17 06:00 72 05/10/17 04:00 79 05/10/17 04:00 98.6 67 15 147/82 (103) 97 05/10/17 02:00 77 05/10/17 00:00 98.0 78 14 155/80 (105) 97 05/10/17 00:00 63 05/09/17 22:00 57 05/09/17 20:00 55 05/09/17 20:00 98.4 67 13 138/83 (101) 97 05/09/17 18:37 12 05/09/17 18:00 76 05/09/17 16:00 78 05/09/17 16:00 98.7 73 17 154/84 (107) 96 Constitutional Vital Signs Date Time Temp Pulse Resp B/P (MAP) Pulse Ox O2 Delivery O2 Flow Rate FiO2 05/10/17 14:00 81 05/10/17 12:00 82 05/10/17 12:00 98.4 67 19 144/82 (102) 96 05/10/17 10:00 98 21 05/10/17 10:00 88 05/10/17 08:00 84 05/10/17 08:00 98.1 77 16 161/93 (115) 98 05/10/17 06:00 72 05/10/17 04:00 79 05/10/17 04:00 98.6 67 15 147/82 (103) 97 05/10/17 02:00 77 05/10/17 00:00 98.0 78 14 155/80 (105) 97 05/10/17 00:00 63 05/09/17 22:00 57 05/09/17 20:00 55 05/09/17 20:00 98.4 67 13 138/83 (101) 97 05/09/17 18:37 12 05/09/17 18:00 76 05/09/17 16:00 78 05/09/17 16:00 98.7 73 17 154/84 (107) 96 (Lisset Vizcarra) Physical Exam Sitting up in chair, drowsy, oriented to name only. followed only few commands to ext movements Motor: moved all four extremities 3/5 to command CN: pupils equal, facial motor symmetric at rest (Lisset Vizcarra) Medications Current Medications Current Medications Medications (Trade) Dose Ordered Sig/Mayra Route PRN Reason Start Time Stop Time Status Last Admin Dose Admin Sodium Chloride (NS Flush) 2 ml UNSCH PRN IV FLUSH FLUSH AFTER USING IV ACCESS 05/03/17 02:00 Sodium Chloride (NS Flush) 2 ml BID IV FLUSH 05/03/17 09:00 05/10/17 08:24 Levetriacetam (Keppra) 500 mg Q12H PO 05/03/17 09:00 05/10/17 08:24 Lorazepam (Ativan Inj) 1 mg Q1H PRN IV PUSH SEIZURES 05/03/17 02:00 Docusate Sodium (Colace) 100 mg BID PO 05/03/17 09:00 05/10/17 08:24 Magnesium Hydroxide (Milk Of Magnesia Liq) 30 ml DAILY PRN PO CONSTIPATION 05/03/17 02:00 Al Hydrox/Mg Hydrox/Simethicone (Mag-Al Plus Susp Liq) 30 ml Q6H PRN PO DYSPEPSIA 05/03/17 02:00 Pantoprazole Sodium (Protonix) 40 mg DAILY PO 05/03/17 09:00 05/10/17 08:24 Ondansetron HCl (Zofran Inj) 4 mg Q6H PRN IV PUSH NAUSEA OR VOMITING 05/03/17 02:00 05/08/17 09:13 Promethazine HCl (Phenergan Inj) 25 mg Q4H PRN IM NAUSEA OR VOMITING 05/03/17 02:00 05/03/17 05:11 Calcium Gluconate 1 gm/Sodium Chloride 110 ml @ 110 mls/hr UNSCH PRN IV SEE LABEL COMMENTS 05/03/17 02:00 Potassium Chloride 100 ml @ 50 mls/hr UNSCH PRN IV POTASSIUM LESS THAN 4 05/03/17 02:00 Magnesium Sulfate 2 gm/Sodium Chloride 104 ml @ 100 mls/hr UNSCH PRN IV MAGNESIUM LESS THAN 2 05/03/17 02:00 Morphine Sulfate (Morphine Inj) 2 mg Q2H PRN IV PUSH breakthorugh pain> 6 05/03/17 02:00 05/10/17 00:05 Labetalol HCl (Trandate Inj) 10 mg Q1H PRN IV PUSH SYS BP GREATER THAN 170 MMHG 05/03/17 02:00 05/08/17 07:47 Clonidine (Catapres) 0.1 mg Q6H PRN PO SYS BP GREATER THAN 170 MMHG 05/03/17 02:00 05/10/17 10:31 Acetaminophen (Tylenol) 650 mg Q4H PRN PO TEMPERATURE > 101.5 F 05/03/17 02:00 05/10/17 14:54 Bacitracin (Baciguent Oint) 1 applic BID TOP 05/03/17 09:00 05/10/17 08:25 Menthol ([place] Chasidy) 1 lozenge UNSCH PRN BUCCAL SORE THROAT 05/03/17 02:00 Zolpidem Tartrate (Ambien) 5 mg HS PRN PO INSOMNIA 05/03/17 02:00 Albuterol Sulfate (Albuterol Neb) 2.5 mg Q4HR NEB PRN NEB WHEEZING 05/03/17 02:00 Nicardipine HCl 25 mg/Sodium Chloride 250 ml @ 50 mls/hr TITRATE PRN IV Blood pressure management 05/03/17 02:00 05/08/17 19:00 Gabapentin (Neurontin) 100 mg BID PO 05/03/17 09:00 05/10/17 08:24 Potassium Chloride/Sodium Chloride 1,000 ml @ 80 mls/hr [id number] IV 05/05/17 18:45 05/10/17 11:15 Enalaprilat (Vasotec Inj) 1.25 mg Q6H PRN IV PUSH SBP>160, DBP>90 05/06/17 13:00 05/09/17 15:12 Atorvastatin Calcium (Lipitor) 20 mg DAILY PO 05/07/17 09:00 05/10/17 08:24 Miscellaneous (Pill Splitter) 1 ea UNSCH PRN OTHER SEE LABEL COMMENTS 05/06/17 12:45 Nicardipine HCl 25 mg/Sodium Chloride 250 ml @ 50 mls/hr TITRATE PRN IV BP CONTROL 05/08/17 10:00 Amlodipine Besylate (Norvasc) 5 mg DAILY PO 05/08/17 09:30 05/10/17 08:24 Miscellaneous (Pill Splitter) 1 ea UNSCH PRN OTHER SEE LABEL COMMENTS 05/08/17 10:00 Hydralazine HCl (Apresoline) 50 mg Q8H PO 05/09/17 18:00 05/10/17 10:00 Acetaminophen/ Hydrocodone Bitart ([place] 10-325 Mg) 1 tab Q4H PRN PO PAIN SCALE 6 TO 10 05/09/17 22:00 05/10/17 02:25 Acetaminophen/ Hydrocodone Bitart ([place] 5-325 Mg) 1 tab Q4H PRN PO PAIN SCALE 1 TO 5 05/09/17 21:15 05/10/17 08:38 Lisinopril (Prinivil) 20 mg DAILY PO 05/11/17 09:00 Lisinopril (Prinivil) 10 mg DAILY@1999 PO 05/11/17 20:00 (Lisset Vizcarra) Medical Decision Making MDM Remarks 1. 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 There is a nondisplaced right occipital skull bone fracture also. There is a slight progression of these contusions as a hemorrhage in the followup CT scan but again without mass effect. 2. It us unclear whether he had a near-syncopal episode or he fell because of the intoxication and then suffered from this traumatic brain injury. 3. heart ischemia per stress test 4. Uncontrolled Hypertension (Lisset Vizcarra) Plan Plan Remarks cont current care and serial neuro checks in [facility], f/u CT Head ordered for tomorrow am EEG cont Keppra fro sz proph Cardiology following clear from NRS standpoint to start aspirin, will hold on cardiac catheterization in view of acute [facility] medical physician following cont medical mgt (Lisset Vizcarra) Attending Statement The exam, history, and the medical decision-making described in the above note were completed with the assistance of the mid-level provider. I reviewed and agree with the findings presented. I attest that I had a [id number] encounter with the patient on the same day, and personally performed and documented my assessment and findings in the medical record. (Gavin Aviles MD) Lisset Vizcarra May 10, 2017 15:44 Gavin Aviles MD May 13, 2017 22:17
[2017-05-11] VITALS (13 sets, daily range): BP systolic 138–192; BP diastolic 70–98; PULSE 56–88; RESP 12–26; TEMP 98–98.7; O2SAT 95–99
[2017-05-11] MEDS: ACETAMINOPHEN/HYDROcodone 325 MG/10 MG TAB PO PRN ×3 (01:43→20:02)
[2017-05-11] MEDS: hydrALAZINE HCL 50 MG TAB PO SCH ×3 (01:43→18:34)
[2017-05-11] MEDS: MORPHINE SULFATE 4 MG/ML INJ IV PUSH PRN ×2 (02:37→04:46)
[2017-05-11 04:52] LABS: HEMATOCRIT 44.5 % (39.0-51.0); HEMOGLOBIN 15.2 GM/DL (13.0-17.0); MEAN CELL VOLUME 94.2 FL (80.0-100.0); MEAN CORPUSCULAR HEMOGLOBIN 32.2 PG (27.0-34.0); MEAN CORPUSCULAR HGB CONC 34.2 % (32.0-36.0); MEAN PLATELET VOLUME 9.9 FL (7.0-11.0); PLATELET COUNT 210 TH/MM3 (150-450); RED BLOOD COUNT 4.73 MIL/MM3 (4.50-5.90); RED CELL DISTRIBUTION WIDTH 13.5 % (11.6-17.2); WHITE BLOOD COUNT 11.6 TH/MM3 (4.0-11.0)
--- NOTE | 2017-05-11 05:01 | RADRPT ---
EXAM DATE/TIME: 05/11/2017 04:20 [place] COMPARISON: CT BRAIN W/O CONTRAST, May 07, 2017, 4:24. INDICATIONS : Follow up subdural hematoma. RADIATION DOSE: 36.89 CTDIvol (mGy) MEDICAL HISTORY : Hypertension. SURGICAL HISTORY : None. ENCOUNTER: Subsequent ACUITY: 1 week PAIN SCALE: 0/10 LOCATION: cranial TECHNIQUE: Multiple contiguous axial images were obtained of the head. Using automated exposure control and adj ustment of the mA and/or kV according to patient size, radiation dose was kept as low as reasonably a chievable to obtain optimal diagnostic quality images. DICOM format image data is available electro nically for review and comparison. FINDINGS: Combination of parenchymal, subarachnoid and subdural hemorrhage again seen of the left frontal lobe. Subdural component is approximately 6 mm in maximal thickness, similar to before. There is approxima tely 3 mm of rightward midline shift which is similar to before. Previously seen subarachnoid blood at the left parietal lobe is resolving and barely perceptible today. The small parenchymal hemorrhage of the right side of the cerebellum is also smaller and [address]. No new intracranial hemorrhage. No mass lesion seen. CONCLUSION: Slowly resolving multifocal intracranial hemorrhage as above. Approximately 3 mm of rightward midline shift similar to before. No new bleed or other acute abnormality. Darin Nelson MD on May 11, 2017 at 4:56 Board Certified Radiologist. This report was verified electronically.
[2017-05-11 05:18] LABS: BICARBONATE 24.8 MEQ/L (21.0-32.0); CALCIUM 8.9 MG/DL (8.5-10.1); CREATININE 0.74 MG/DL (0.60-1.30)
--- NOTE | 2017-05-11 08:56 | HHI.NSPN ---
(Brent Weber) History Chief Complaint: Slight headache (Brent Weber) Interval History 66-year-old gentleman who presented to [facility] emergency room apparently he was drinking beer and relates that he passed out and fell and struck his head on concrete floor. Complains of headache although at this point denies any nausea or vomiting, double vision, or blurred vision. Chronic neck discomfort which is not worse. CT scan of the head obtained initially around midnight ratios the right small cerebellar hemisphere contusion along with multiple left frontal polar area contusions and traumatic subarachnoid hemorrhage in the frontal aspect and lateral Sylvian fissure aspect. He also has a nondisplaced right occipital bone fracture. CT of the cervical spine reveals extensive degenerate changes without any fractures. He was transfer to [facility] and has been monitored and neurologically remained stable. A followup CT scan this morning reveals progression of the contusions involving the left frontal lobe along with a right cerebellar hemisphere and left the insula with a stable left frontal polar 6 mm subdural without any mass effect or midline shift. 05/04: Pt awake and alert. Denies headache, nausea, vomiting, chest pain, sob , weakness. Pt agitated this morning. Pt and states he didn't drink enough to pass out and that he has had 1 near syncopal episode and 2 syncopal episodes in the last year and has had evaluation at [facility] in [place] and states nothing was found although doesn't recall seeing a Conduit Helper and states he never followed up with anyone. He states he doesn't see a pcp. 05/05: Pt awakens to voice. Complains of headache. No nausea or vomiting. Had stress test this morning. No chest pain or sob. 05/06: Pt awakens to voice. Denies headache currently. No nausea or vomiting. Follows commands. No chest pain or sob. RN states pt was confused earlier and tried to leave. 05/07: The patient is awake and fairly alert. He does state that he has intermittently had a headache and dizziness. Nursing reports that so far today the patient has been oriented to person, place and time, but during the night he did occasionally have an episode of confusion. 05/08: patient seen this morning during rounds. continues with elevated uncontrolled blood pressure. unhappy as medical physician has not seen the patient despite consultation on 05/06 for blood pressure management. we have started on Cardizem drip now. remains confused but reports mental status has been stable. 05/09: Patient is drowsy this afternoon when seen. He awakens to verbal stimulation and shortly closes his eyes if not being stimulated. He states he has a slight headache otherwise he is doing "pretty good." The patient is not on any drips. 05/10: patient seen this am during rounds, appears drowsy sitting up in chair. moved all four ext to commands, pupils equal. nursing called this afternoon reports pt remains drowsy and lethargic. he has not received sedatives. dw Dr. Aviles who recs f/u CT Head in the am and EEG. he is on keppra already for sz proph. 05/11: The patient this morning does say he has an intermittent headache. He is slow to respond. Nursing reports that the patient has antidepressants that he is on at home which have not been given since admission. The patient did have a repeat CT brain this morning. (Brent Weber) System Review Comments Neurological: Headache. The remainder of the ROS is negative. (Brent Weber) Exam Results 05/09/17 05/09/17 05/10/17 05/10/17 05/11/17 05/11/17 06:00 18:00 06:00 18:00 06:00 18:00 Intake Total 1263 ml 240 ml 1300 ml 1944 ml 1016 ml Output Total 2650 ml 850 ml 1175 ml 1200 ml Balance 1263 ml -2410 ml 450 ml 769 ml -184 ml Intake Oral 240 ml 300 ml 400 ml IV Total 1263 ml 1000 ml 1544 ml 1016 ml Output Urine Total 2650 ml 850 ml 1175 ml 1200 ml # Voids 2 # Bowel Movements 0 0 0 Vital Signs Date Time Temp Pulse Resp B/P (MAP) Pulse Ox O2 Delivery O2 Flow Rate FiO2 05/11/17 06:00 73 05/11/17 04:00 84 05/11/17 04:00 98.5 84 26 160/78 (105) 97 05/11/17 02:00 74 05/11/17 00:00 88 05/11/17 00:00 98.3 88 15 147/77 (100) 95 05/10/17 22:31 97 21 05/10/17 22:00 84 05/10/17 20:00 71 05/10/17 20:00 98.2 74 16 140/69 (92) 95 05/10/17 18:00 75 05/10/17 16:00 97.5 97 20 139/90 (106) 98 05/10/17 16:00 75 05/10/17 14:00 81 05/10/17 12:00 82 05/10/17 12:00 98.4 67 19 144/82 (102) 96 05/10/17 10:00 98 21 05/10/17 10:00 88 05/10/17 08:00 84 05/10/17 08:00 98.1 77 16 161/93 (115) 98 05/10/17 06:00 72 05/10/17 04:00 79 05/10/17 04:00 98.6 67 15 147/82 (103) 97 05/10/17 02:00 77 05/10/17 00:00 98.0 78 14 155/80 (105) 97 05/10/17 00:00 63 05/09/17 22:00 57 05/09/17 20:00 55 05/09/17 20:00 98.4 67 13 138/83 (101) 97 05/09/17 18:37 12 05/09/17 18:00 76 05/09/17 16:00 78 05/09/17 16:00 98.7 73 17 154/84 (107) 96 05/09/17 14:00 58 05/09/17 12:00 74 05/09/17 12:00 97.9 73 16 156/83 (107) 96 05/09/17 10:00 58 05/09/17 08:54 11 05/09/17 08:00 97.7 53 10 158/83 (108) 98 05/09/17 08:00 53 05/09/17 07:44 15 05/09/17 06:00 58 05/09/17 05:06 60 149/73 05/09/17 04:23 78 136/74 05/09/17 04:00 98.3 68 19 123/58 (79) 97 05/09/17 04:00 70 05/09/17 02:00 76 05/09/17 00:00 97.8 68 16 139/63 (88) 97 05/09/17 00:00 58 05/08/17 22:35 70 135/77 05/08/17 22:11 75 151/70 05/08/17 22:00 80 05/08/17 20:00 97.9 70 20 135/65 (88) 97 05/08/17 20:00 82 05/08/17 19:30 70 125/66 05/08/17 19:00 70 160/70 05/08/17 18:00 62 05/08/17 16:00 97.6 60 13 155/72 (99) 96 05/08/17 16:00 60 05/08/17 14:00 110 05/08/17 12:00 98.1 70 15 134/74 (94) 93 05/08/17 12:00 70 05/08/17 10:00 64 05/08/17 09:21 56 195/88 (Brent Weber) Physical Examination GENERAL: Awake in bed but drowsy, slow to interact, no apparent distress, affect flat. HEENT: Normocephalic, occipital scalp abrasion essentially healed. PERRLA 2 mm brisk, EOMI. MMM & pink, tongue midline to protrusion. NECK: Active ROM w/o pain, no JVD, trachea midline. RESPIRATORY/CHEST: CTAB w/o W/R/R, equal excursion, nonlaboured, on RA. CARDIOVASCULAR: S1S2 w/irregular rate w/o M/G/R, radial & pedal pulses 2+ bilaterally, cap refill < 2 sec, no pedal edema. Monitor is sinus rhythm w/ multiple unifocal PVCs noted. GASTROINTESTINAL: Abdomen soft, nontender, positive bowel sounds. EXTREMITIES: LANDA w/o difficulty, NTTP, no evident deformity or clubbing, small abrasion to distal right lower leg. SKIN: Warm, dry & intact except for abrasions to the occipital scalp which is essentially healed and distal right lower leg. NEUROLOGIC: Awake but drowsy, oriented to person, place and year but not month. Speech clear & appropriate but slow in response. CN II-XII appear grossly intact. Sensation is intact to light touch to all extremities. Motor strength is 5/5 to all major flexion & extension muscle groups. (Brent Weber) Lab, Micro, Other Results Recent Impressions Head CT 05/11/17 0600 Signed Impressions: Service Date/Time: Thursday, May 11, 2017 04:20 - CONCLUSION: Slowly resolving multifocal intracranial hemorrhage as above. Approximately 3 mm of rightward midline shift similar to before. No new bleed or other acute abnormality. Darin Nelson MD Laboratory Tests Test 05/09/17 08:51 05/10/17 03:54 05/11/17 04:13 Blood Urea Nitrogen 17 MG/DL 16 MG/DL 16 MG/DL Creatinine 0.67 MG/DL 0.63 MG/DL 0.74 MG/DL Random Glucose 114 MG/DL 107 MG/DL 112 MG/DL Calcium Level 8.8 MG/DL 9.2 MG/DL 8.9 MG/DL Magnesium Level 2.2 MG/DL Sodium Level 135 MEQ/L 135 MEQ/L 138 MEQ/L Potassium Level 3.8 MEQ/L 3.6 MEQ/L 3.8 MEQ/L Chloride Level 102 MEQ/L 102 MEQ/L 104 MEQ/L Carbon Dioxide Level 24.9 MEQ/L 23.9 MEQ/L 24.8 MEQ/L Anion Gap 8 MEQ/L 9 MEQ/L 9 MEQ/L Estimat Glomerular Filtration Rate 119 ML/MIN 128 ML/MIN 106 ML/MIN White Blood Count 10.9 TH/MM3 11.6 TH/MM3 Red Blood Count 4.67 MIL/MM3 4.73 MIL/MM3 Hemoglobin 15.4 GM/DL 15.2 GM/DL Hematocrit 43.8 % 44.5 % Mean Corpuscular Volume 93.8 FL 94.2 FL Mean Corpuscular Hemoglobin 33.0 PG 32.2 PG Mean Corpuscular Hemoglobin Concent 35.2 % 34.2 % Red Cell Distribution Width 13.5 % 13.5 % Platelet Count 199 TH/MM3 210 TH/MM3 Mean Platelet Volume 10.4 FL 9.9 FL (Brent Weber) Medical Decision Making Impression and Plan Impression: 1. 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 There is a nondisplaced right occipital skull bone fracture also. There is a slight progression of these contusions as a hemorrhage in the followup CT scan but again without mass effect. 2. It is unclear whether he had a near-syncopal episode or he fell because of the intoxication and then suffered from this traumatic brain injury. Pts states he has had 1 near syncopal episode and 2 syncopal episodes. She states he was evaluated before at [facility] in [place] and had a workup but nothing was found per pt and his . She is requesting a Cardiology evaluation. 3. Heart ischemia per stress test 4. Hypertension Patient still with headache, slow to response, slight confusion, otherwise neurologically intact. Repeat CT brain with resolving haemorrhages. Cleared by Cardiology for discharge w/outpatient follow up. Reviewed med reconciliation but no antidepressant medication listed. Spoke w/ Nursing who said Dr Gay is ordering meds at this time. Plan: Discussed plan of care with patient and Nursing. Frequent neuro checks. Stat CT brain for any worsening in neuro status. Pain control. Hospitalist for medical management. From a NSGY perspective the patient may transfer to a regular med/surg floor when medically indicated. Appreciate Hospitalist input and assistance. (Brent Weber) Attending Statement The exam, history, and the medical decision-making described in the above note were completed with the assistance of the mid-level provider. I reviewed and agree with the findings presented. I attest that I had a [id number] encounter with the patient on the same day, and personally performed and documented my assessment and findings in the medical record. On my examination of the patient today, he remains with mild to moderate lethargy. Mild confusion. No significant agitation Extraocular movements intact. Facial motor movements symmetric Tongue protrudes midline Sensation intact by touch all extremities Moves all extremities symmetrically with at least moderate strength. 05/11/17 CT scan head images reviewed by the undersigned. Scattered bilateral contusions resolving slowly with persistent 3 mm midline shift. No hydrocephalus or pneumocephalus. Continue in intensive surgical care until medically cleared. Continue therapy Stable for transfer to floor from neurosurgery standpoint (Hernan Woodward MD) Brent Weber May 11, 2017 08:56 Hernan Woodward MD May 11, 2017 21:27
[2017-05-11] MEDS: BACITRACIN TOP OINT 15 GM TUBE TOP SCH ×2 (09:00→20:02)
[2017-05-11] MEDS: SODIUM CHLORIDE 0.9% FLUSH 10 ML FLUSH IV FLUSH SCH ×2 (09:20→20:03)
[2017-05-11] MEDS: amLODIPine BESYLATE 5 MG TAB PO SCH ×2 (09:21→20:01)
[2017-05-11] MEDS: ATORVASTATIN 20 MG TAB PO SCH (09:21)
[2017-05-11] MEDS: LISINOPRIL 20 MG TAB PO SCH ×2 (09:21→20:04)
[2017-05-11] MEDS: GABAPENTIN 100 MG CAP PO SCH ×2 (09:21→20:02)
[2017-05-11] MEDS: levETIRAcetam 500 MG TAB PO SCH ×2 (09:21→20:02)
[2017-05-11] MEDS: DOCUSATE SODIUM 100 MG CAP PO SCH (09:21)
[2017-05-11] MEDS: PANTOPRAZOLE SOD 40 MG DELAYED RELEASE TAB PO SCH (09:21)
[2017-05-11] MEDS: NS + KCL 20 MEQ INJ 1,000 ML IV SCH ×2 (09:22→21:05)
[2017-05-11] MEDS: ENALAPRILAT 1.25 MG/ML VIAL IV PUSH PRN ×2 (10:36→18:37)
[2017-05-11] MEDS: cloNIDine HCL 0.1 MG TAB PO PRN (10:36)
[2017-05-11] MEDS ORDERED: MAGNESIUM HYDROXIDE SUSP 30 ML CUP PO PRN (11:15)
[2017-05-11] MEDS ORDERED: BISACODYL 10 MG SUPP RECTAL PRN (11:15)
--- NOTE | 2017-05-11 11:15 | HHI.PR ---
Subjective Remarks Follow-up hypertension and encephalopathy. BP severely elevated 210/140 after morning doses and when necessary clonidine and IV Vasotec. Complaining of headaches scale of 2 out of 10. Patient without appetite. Easily arousable oriented 3. Discussed with RN. Seen with Objective Vitals Vital Signs Date Time Temp Pulse Resp B/P (MAP) Pulse Ox O2 Delivery O2 Flow Rate FiO2 05/11/17 10:00 73 05/11/17 08:00 73 05/11/17 06:00 73 05/11/17 04:00 84 05/11/17 04:00 98.5 84 26 160/78 (105) 97 05/11/17 02:00 74 05/11/17 00:00 88 05/11/17 00:00 98.3 88 15 147/77 (100) 95 05/10/17 22:31 97 21 05/10/17 22:00 84 05/10/17 20:00 71 05/10/17 20:00 98.2 74 16 140/69 (92) 95 05/10/17 18:00 75 05/10/17 16:00 97.5 97 20 139/90 (106) 98 05/10/17 16:00 75 05/10/17 14:00 81 05/10/17 12:00 82 05/10/17 12:00 98.4 67 19 144/82 (102) 96 I/O 05/10/17 05/10/17 05/10/17 05/11/17 05/11/17 05/11/17 07:00 15:00 23:00 07:00 15:00 23:00 Intake Total 1300 ml 1000 ml 1400 ml 560 ml Output Total 850 ml 1175 ml 1200 ml Balance 450 ml 1000 ml 225 ml -640 ml Intake Oral 300 ml 400 ml IV Total 1000 ml 1000 ml 1000 ml 560 ml Output Urine Total 850 ml 1175 ml 1200 ml # Voids 2 # Bowel Movements 0 0 Result Diagram: 05/11/1741205/11/17412 Imaging Last Impressions Head CT 05/11/17599 Signed Impressions: Service Date/Time: Thursday, May 11, 2017 04:20 - CONCLUSION: Slowly resolving multifocal intracranial hemorrhage as above. Approximately 3 mm of rightward midline shift similar to before. No new bleed or other acute abnormality. Darin Nelson MD Myocardial Perfusion Scan Nuc Med 10/21/17 0000 Signed Impressions: Service Date/Time: Friday, May 05, 2017 09:29 - CONCLUSION: Several areas is suspected mild ischemia in the septum and inferior lateral wall and inferior apex. RISK CATEGORY: Intermediate (1-3%% Annual Mortality Rate) Darin Murray MD Cervical Spine CT 05/03/17 0001 Signed Impressions: Service Date/Time: April 00:14 - CONCLUSION: 1. Moderate degenerative changes as described above. There is no evidence of acute fracture. 2. Nondisplaced occipital bone fracture Phillip Torres MD Carotid Artery Ultrasound 05/03/17 0000 Signed Impressions: Service Date/Time: April 13:24 - CONCLUSION: Normal examination for a patient of this age. Keyur Jimenez MD Objective Remarks GENERAL: This is a well-nourished, well-developed patient who is critically ill Skin: No rashes or lesions CARDIOVASCULAR: Regular rate and rhythm without murmurs, gallops, or rubs. RESPIRATORY: Clear to auscultation. Breath sounds equal bilaterally. No wheezes , rales, or rhonchi. GASTROINTESTINAL: Abdomen soft, non-tender, nondistended. No guarding. MUSCULOSKELETAL: Extremities without clubbing, cyanosis, or edema. No joint tenderness, effusion, or edema noted. No calf tenderness. Negative Homans sign bilaterally. NEUROLOGICAL: Motor and sensory grossly within normal limits. Patient is sleepy but able to arouse. Moving all extremities Procedures none A/P Problem List: (1) Subarachnoid hemorrhage after traumatic injury without open intracranial wound, with prolonged lossof consciousness and return to pre-existing level of consciousness ICD Code: S06.6X9A - Traumatic subarachnoid hemorrhage with loss of consciousness of unspecified duration, initial encounter Status: Acute (2) Syncope ICD Code: R55 - Syncope and collapse Assessment and Plan 66-year-old male with who presented with head trauma [facility] consulted for medical management on 05/08/2017 Encephalopathy which is multifactorial from TBI, uncontrolled hypertension and meds . Neurochecks, seizure precautions and follow up EEG. Limit BODY SANDER active drugs. 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 There is a nondisplaced right occipital skull bone fracture also. -Repeat CT scan of the head showed There is a slight progression of these contusions as a hemorrhage without mass effect. -Confusion improved but he continues to have a headache. Headache is the same and has not worsened. Due to being sedated neurosurgeon decreased pain medication. -Management per neurosurgeon. -Will get a CT scan if confusion worsens. -PT is following. Accelerated hypertension -Restart Cardene drip. Increase lisinopril to 20 minutes twice a day, Norvasc 5 minutes twice a day and continue hydralazine and as needed IV Vasotec and clonidine. Questionable syncope -Patient was found intoxicated with multiple substance. Cardiac workup was done which showed a concerning nuclear stress test with ischemia in the septum, inferior lateral wall and apex. Excel Vba Developer consulted stated that patient is not a candidate for left heart catheterization due to recent intracranial bleed. He is asymptomatic. -Urine drug screen was positive for alcohol, cannabinoids and opioids. -Excel Vba Developer recommends a 24-hour Holter monitor as outpatient. -Patient was also started on a statin. Neurosurgery has cleared patient for aspirin. Unable to start beta katiana secondary to -Echo he had a EF of 55-60%. Anorexia -Continue with heart healthy diet and Ensure. -repairer screen crusher consulted. Noncompliant. Counseled DVT prophylaxis -SCDs -Anticoagulations per primary team. Discharge Planning Patient is critically ill with severely elevated blood pressure requiring intravenous Cardizem drip. We'll keep in the ICU. Critical care time spent 35 minutes Davis Gomez MD May 11, 2017 11:15
--- NOTE | 2017-05-11 11:15 | HHI.PR ---
Subjective Remarks Follow-up hypertension and encephalopathy. BP severely elevated 210/140 after morning doses and when necessary clonidine and IV Vasotec. Complaining of headaches scale of 2 out of 10. Patient without appetite. Easily arousable oriented 3. Discussed with RN. Seen with Objective Vitals Vital Signs Date Time Temp Pulse Resp B/P (MAP) Pulse Ox O2 Delivery O2 Flow Rate FiO2 05/11/17 10:00 73 05/11/17 08:00 73 05/11/17 06:00 73 05/11/17 04:00 84 05/11/17 04:00 98.5 84 26 160/78 (105) 97 05/11/17 02:00 74 05/11/17 00:00 88 05/11/17 00:00 98.3 88 15 147/77 (100) 95 05/10/17 22:31 97 21 05/10/17 22:00 84 05/10/17 20:00 71 05/10/17 20:00 98.2 74 16 140/69 (92) 95 05/10/17 18:00 75 05/10/17 16:00 97.5 97 20 139/90 (106) 98 05/10/17 16:00 75 05/10/17 14:00 81 05/10/17 12:00 82 05/10/17 12:00 98.4 67 19 144/82 (102) 96 I/O 05/10/17 05/10/17 05/10/17 05/11/17 05/11/17 05/11/17 07:00 15:00 23:00 07:00 15:00 23:00 Intake Total 1300 ml 1000 ml 1400 ml 560 ml Output Total 850 ml 1175 ml 1200 ml Balance 450 ml 1000 ml 225 ml -640 ml Intake Oral 300 ml 400 ml IV Total 1000 ml 1000 ml 1000 ml 560 ml Output Urine Total 850 ml 1175 ml 1200 ml # Voids 2 # Bowel Movements 0 0 Result Diagram: 05/11/1741205/11/17412 Imaging Last Impressions Head CT 05/11/17599 Signed Impressions: Service Date/Time: Thursday, May 11, 2017 04:20 - CONCLUSION: Slowly resolving multifocal intracranial hemorrhage as above. Approximately 3 mm of rightward midline shift similar to before. No new bleed or other acute abnormality. Darin Nelson MD Myocardial Perfusion Scan Nuc Med 10/21/17 0000 Signed Impressions: Service Date/Time: Friday, May 05, 2017 09:29 - CONCLUSION: Several areas is suspected mild ischemia in the septum and inferior lateral wall and inferior apex. RISK CATEGORY: Intermediate (1-3%% Annual Mortality Rate) Darin Murray MD Cervical Spine CT 05/03/17 0001 Signed Impressions: Service Date/Time: April 00:14 - CONCLUSION: 1. Moderate degenerative changes as described above. There is no evidence of acute fracture. 2. Nondisplaced occipital bone fracture Phillip Torres MD Carotid Artery Ultrasound 05/03/17 0000 Signed Impressions: Service Date/Time: April 13:24 - CONCLUSION: Normal examination for a patient of this age. Keyur Jimenez MD Objective Remarks GENERAL: This is a well-nourished, well-developed patient who is critically ill Skin: No rashes or lesions CARDIOVASCULAR: Regular rate and rhythm without murmurs, gallops, or rubs. RESPIRATORY: Clear to auscultation. Breath sounds equal bilaterally. No wheezes , rales, or rhonchi. GASTROINTESTINAL: Abdomen soft, non-tender, nondistended. No guarding. MUSCULOSKELETAL: Extremities without clubbing, cyanosis, or edema. No joint tenderness, effusion, or edema noted. No calf tenderness. Negative Homans sign bilaterally. NEUROLOGICAL: Motor and sensory grossly within normal limits. Patient is sleepy but able to arouse. Moving all extremities Procedures none A/P Problem List: (1) Subarachnoid hemorrhage after traumatic injury without open intracranial wound, with prolonged lossof consciousness and return to pre-existing level of consciousness ICD Code: S06.6X9A - Traumatic subarachnoid hemorrhage with loss of consciousness of unspecified duration, initial encounter Status: Acute (2) Syncope ICD Code: R55 - Syncope and collapse Assessment and Plan 66-year-old male with who presented with head trauma [facility] consulted for medical management on 05/08/2017 Encephalopathy which is multifactorial from TBI, uncontrolled hypertension and meds . Neurochecks, seizure precautions and follow up EEG. Limit TRANSPORTATION BROKER active drugs. 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 There is a nondisplaced right occipital skull bone fracture also. -Repeat CT scan of the head showed There is a slight progression of these contusions as a hemorrhage without mass effect. -Confusion improved but he continues to have a headache. Headache is the same and has not worsened. Due to being sedated neurosurgeon decreased pain medication. -Management per neurosurgeon. -Will get a CT scan if confusion worsens. -PT is following. Accelerated hypertension -Restart Cardene drip. Increase lisinopril to 20 minutes twice a day, Norvasc 5 minutes twice a day and continue hydralazine and as needed IV Vasotec and clonidine. Questionable syncope -Patient was found intoxicated with multiple substance. Cardiac workup was done which showed a concerning nuclear stress test with ischemia in the septum, inferior lateral wall and apex. Draw Operator consulted stated that patient is not a candidate for left heart catheterization due to recent intracranial bleed. He is asymptomatic. -Urine drug screen was positive for alcohol, cannabinoids and opioids. -Draw Operator recommends a 24-hour Holter monitor as outpatient. -Patient was also started on a statin. Neurosurgery has cleared patient for aspirin. Unable to start beta katiana secondary to -Echo he had a EF of 55-60%. Anorexia -Continue with heart healthy diet and Ensure. -political geographer consulted. Noncompliant. Counseled DVT prophylaxis -SCDs -Anticoagulations per primary team. Discharge Planning Patient is critically ill with severely elevated blood pressure requiring intravenous Cardizem drip. We'll keep in the ICU. Critical care time spent 35 minutes Davis Gomez MD May 11, 2017 11:15
[2017-05-11 11:43] LABS: CHOLESTEROL 112 MG/DL (120-200); TRIGLYCERIDES 56 MG/DL (42-150)
[2017-05-11 11:45] LABS: CHOLESTEROL/ HDL RATIO 2.25 RATIO; HDL CHOLESTEROL 49.6 MG/DL (40.0-60.0); LDL CHOLESTEROL 51 MG/DL (0-99)
[2017-05-11] MEDS: DOCUSATE SODIUM 50 MG/SENNA 8.6 MG TAB PO SCH ×2 (12:00→20:02)
[2017-05-11] MEDS: LACTULOSE SYRUP 20 GM/30 ML CUP PO PRN (13:03)
[2017-05-11] MEDS: SENNOSIDES 8.6 MG TAB PO PRN (13:03)
[2017-05-11] MEDS: LABETALOL HCL 100 MG/20 ML VIAL IV PUSH PRN (14:21)
--- NOTE | 2017-05-11 15:37 | MG ---
cc: ADEEL WILLIS M.D. Lab No: [id number] Date: Age: 66 Sex: M Race: REFERRING: Physician state tested nursing assistant Zackery. ROOM: 1308. With photic done. No sedation. He is positive opiates, cannabinoids and ethanol above 88. CT shows slowing resolving hemorrhage rightward 3 mm shift, history of drinking beer heavily, fell and had a syncope. On Keppra and other medications. DESCRIPTION OF RECORD: The patient has about 6 Hz background rhythm. Some muscle artifact but no findings to suggest any epileptic focus, just mild to moderate slowing. Photic stimulation with a mild driving response. IMPRESSION: Abnormal EEG due to moderate slowing consistent with what appears be an encephalopathic process. No epileptiform features. MD SYLVIE Serrano/TEGAN /3:16 PM /3:27 PM
--- NOTE | 2017-05-11 15:37 | MG ---
cc: ADEEL WILLIS M.D. Lab No: [id number] Date: Age: 66 Sex: M Race: REFERRING: Physician safety assistant Zackery. ROOM: 1308. With photic done. No sedation. He is positive opiates, cannabinoids and ethanol above 88. CT shows slowing resolving hemorrhage rightward 3 mm shift, history of drinking beer heavily, fell and had a syncope. On Keppra and other medications. DESCRIPTION OF RECORD: The patient has about 6 Hz background rhythm. Some muscle artifact but no findings to suggest any epileptic focus, just mild to moderate slowing. Photic stimulation with a mild driving response. IMPRESSION: Abnormal EEG due to moderate slowing consistent with what appears be an encephalopathic process. No epileptiform features. MD SYLVIE Serrano/TEGAN /3:16 PM /3:27 PM
--- NOTE | 2017-05-11 15:37 | MG ---
cc: ADEEL WILLIS M.D. 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 ROOM: 1308. With photic done. No sedation. He is positive opiates, cannabinoids and ethanol above 88. CT shows slowing resolving hemorrhage rightward 3 mm shift, history of drinking beer heavily, fell and had a syncope. On Keppra and other medications. DESCRIPTION OF RECORD: The patient has about 6 Hz background rhythm. Some muscle artifact but no findings to suggest any epileptic focus, just mild to moderate slowing. Photic stimulation with a mild driving response. IMPRESSION: Abnormal EEG due to moderate slowing consistent with what appears be an encephalopathic process. No epileptiform features. MD SYLVIE Serrano/TEGAN /3:16 PM /3:27 PM
[2017-05-11] MEDS ORDERED: LISINOPRIL 10 MG TAB PO SCH (20:00)
[2017-05-11] MEDS: CITALOPRAM HYDROBROMIDE 20 MG TAB PO SCH (20:02)
[2017-05-11 21:03] LABS: HEMOGLOBIN A1C 6.2 % (4.3-6.0)
[2017-05-12] VITALS (14 sets, daily range): BP systolic 138–157; BP diastolic 67–89; PULSE 63–78; RESP 14–20; TEMP 97.9–98.7; O2SAT 93–96
[2017-05-12] MEDS: hydrALAZINE HCL 50 MG TAB PO SCH ×3 (01:04→18:01)
[2017-05-12] MEDS: ACETAMINOPHEN/HYDROcodone 325 MG/10 MG TAB PO PRN ×2 (05:50→23:38)
[2017-05-12] MEDS: levETIRAcetam 500 MG TAB PO SCH ×2 (08:47→19:57)
[2017-05-12] MEDS: PANTOPRAZOLE SOD 40 MG DELAYED RELEASE TAB PO SCH (08:47)
[2017-05-12] MEDS: DOCUSATE SODIUM 50 MG/SENNA 8.6 MG TAB PO SCH ×2 (08:48→19:57)
[2017-05-12] MEDS: LISINOPRIL 20 MG TAB PO SCH ×2 (08:48→19:57)
[2017-05-12] MEDS: amLODIPine BESYLATE 5 MG TAB PO SCH ×2 (08:48→16:39)
[2017-05-12] MEDS: ASPIRIN EC 81 MG TABEC PO SCH (08:48)
[2017-05-12] MEDS: GABAPENTIN 100 MG CAP PO SCH ×2 (08:48→19:57)
[2017-05-12] MEDS: ATORVASTATIN 20 MG TAB PO SCH (08:48)
[2017-05-12] MEDS: SODIUM CHLORIDE 0.9% FLUSH 10 ML FLUSH IV FLUSH SCH ×2 (08:49→19:58)
[2017-05-12] MEDS: BACITRACIN TOP OINT 15 GM TUBE TOP SCH ×2 (08:49→19:57)
--- NOTE | 2017-05-12 09:18 | HHI.NSPN ---
(Brent Weber) History Chief Complaint: Slight headache (Brent Weber) Interval History 66-year-old gentleman who presented to [facility] emergency room apparently he was drinking beer and relates that he passed out and fell and struck his head on concrete floor. Complains of headache although at this point denies any nausea or vomiting, double vision, or blurred vision. Chronic neck discomfort which is not worse. CT scan of the head obtained initially around midnight ratios the right small cerebellar hemisphere contusion along with multiple left frontal polar area contusions and traumatic subarachnoid hemorrhage in the frontal aspect and lateral Sylvian fissure aspect. He also has a nondisplaced right occipital bone fracture. CT of the cervical spine reveals extensive degenerate changes without any fractures. He was transfer to [facility] and has been monitored and neurologically remained stable. A followup CT scan this morning reveals progression of the contusions involving the left frontal lobe along with a right cerebellar hemisphere and left the insula with a stable left frontal polar 6 mm subdural without any mass effect or midline shift. 05/04: Pt awake and alert. Denies headache, nausea, vomiting, chest pain, sob , weakness. Pt agitated this morning. Pt and states he didn't drink enough to pass out and that he has had 1 near syncopal episode and 2 syncopal episodes in the last year and has had evaluation at [facility] in [place] and states nothing was found although doesn't recall seeing a Cardiology Nurse and states he never followed up with anyone. He states he doesn't see a pcp. 05/05: Pt awakens to voice. Complains of headache. No nausea or vomiting. Had stress test this morning. No chest pain or sob. 05/06: Pt awakens to voice. Denies headache currently. No nausea or vomiting. Follows commands. No chest pain or sob. RN states pt was confused earlier and tried to leave. 05/07: The patient is awake and fairly alert. He does state that he has intermittently had a headache and dizziness. Nursing reports that so far today the patient has been oriented to person, place and time, but during the night he did occasionally have an episode of confusion. 05/08: patient seen this morning during rounds. continues with elevated uncontrolled blood pressure. unhappy as medical physician has not seen the patient despite consultation on 05/06 for blood pressure management. we have started on Cardizem drip now. remains confused but reports mental status has been stable. 05/09: Patient is drowsy this afternoon when seen. He awakens to verbal stimulation and shortly closes his eyes if not being stimulated. He states he has a slight headache otherwise he is doing "pretty good." The patient is not on any drips. 05/10: patient seen this am during rounds, appears drowsy sitting up in chair. moved all four ext to commands, pupils equal. nursing called this afternoon reports pt remains drowsy and lethargic. he has not received sedatives. dw Dr. Aviles who recs f/u CT Head in the am and EEG. he is on keppra already for sz proph. 05/11: The patient this morning does say he has an intermittent headache. He is slow to respond. Nursing reports that the patient has antidepressants that he is on at home which have not been given since admission. The patient did have a repeat CT brain this morning. 05/12: This morning the patient is awake. He does have a slight headache that is better. He continues to be slow to respond. Nursing reports that he has been off the Cardene drip for 2 days. (Brent Weber) System Review Comments Neurological: Headache. The remainder of the ROS is negative. (Brent Weber) Exam Results 05/10/17 05/10/17 05/11/17 05/11/17 05/12/17 05/12/17 06:00 18:00 06:00 18:00 06:00 18:00 Intake Total 1300 ml 1944 ml 1016 ml 1274 ml 1500 ml Output Total 850 ml 1175 ml 1200 ml 1400 ml 1200 ml Balance 450 ml 769 ml -184 ml -126 ml 300 ml Intake Oral 300 ml 400 ml 480 ml 500 ml IV Total 1000 ml 1544 ml 1016 ml 794 ml 1000 ml Output Urine Total 850 ml 1175 ml 1200 ml 1400 ml 1200 ml # Voids 2 # Bowel Movements 0 0 0 Laboratory Tests Vital Signs Date Time Temp Pulse Resp B/P (MAP) Pulse Ox O2 Delivery O2 Flow Rate FiO2 05/12/17 06:00 69 05/12/17 04:00 98.2 70 14 138/67 (90) 95 05/12/17 04:00 68 05/12/17 02:00 63 05/12/17 00:00 98.4 76 20 148/89 (108) 94 05/12/17 00:00 76 05/11/17 22:00 56 05/11/17 20:20 97 21 05/11/17 20:00 98.7 75 16 142/70 (94) 99 05/11/17 20:00 70 05/11/17 18:00 73 05/11/17 16:00 98.2 74 12 138/76 (96) 97 05/11/17 16:00 73 05/11/17 14:00 73 05/11/17 12:00 98.2 76 14 150/84 (106) 96 05/11/17 12:00 73 05/11/17 10:00 73 05/11/17 08:00 73 05/11/17 08:00 98.0 78 18 192/98 (129) 95 05/11/17 06:00 73 05/11/17 04:00 84 05/11/17 04:00 98.5 84 26 160/78 (105) 97 05/11/17 02:00 74 05/11/17 00:00 88 05/11/17 00:00 98.3 88 15 147/77 (100) 95 05/10/17 22:31 97 21 05/10/17 22:00 84 05/10/17 20:00 71 05/10/17 20:00 98.2 74 16 140/69 (92) 95 05/10/17 18:00 75 05/10/17 16:00 97.5 97 20 139/90 (106) 98 05/10/17 16:00 75 05/10/17 14:00 81 05/10/17 12:00 82 05/10/17 12:00 98.4 67 19 144/82 (102) 96 05/10/17 10:00 98 21 05/10/17 10:00 88 05/10/17 08:00 84 05/10/17 08:00 98.1 77 16 161/93 (115) 98 05/10/17 06:00 72 05/10/17 04:00 79 05/10/17 04:00 98.6 67 15 147/82 (103) 97 05/10/17 02:00 77 05/10/17 00:00 98.0 78 14 155/80 (105) 97 05/10/17 00:00 63 05/09/17 22:00 57 05/09/17 20:00 55 05/09/17 20:00 98.4 67 13 138/83 (101) 97 05/09/17 18:37 12 05/09/17 18:00 76 05/09/17 16:00 78 05/09/17 16:00 98.7 73 17 154/84 (107) 96 05/09/17 14:00 58 05/09/17 12:00 74 05/09/17 12:00 97.9 73 16 156/83 (107) 96 05/09/17 10:00 58 (Brent Weber) Physical Examination GENERAL: Awake in bed but slow to interact, no apparent distress, affect flat. HEENT: Normocephalic. PERRLA 2 mm brisk, EOMI. MMM & pink, tongue midline to protrusion. NECK: Active ROM w/o pain, no JVD, trachea midline. RESPIRATORY/CHEST: CTAB w/o W/R/R, equal excursion, nonlaboured, on RA. CARDIOVASCULAR: S1S2 w/RRR w/o M/G/R, radial & pedal pulses 2+ bilaterally, cap refill < 2 sec, no pedal edema. Monitor is sinus rhythm w/o any ectopy noted. GASTROINTESTINAL: Abdomen soft, nontender, positive bowel sounds. EXTREMITIES: LANDA w/o difficulty, NTTP, no evident deformity or clubbing, small abrasion to distal right lower leg. SKIN: Warm, dry & intact except for abrasion to the distal right lower leg healing w/o complication. NEUROLOGIC: Awake, alert & oriented to person, place and year but not month. Speech clear & appropriate but slow in response. CN II-XII appear grossly intact. Sensation is intact to light touch to all extremities. Motor strength is 5/5 to all major flexion & extension muscle groups. (Brent Weber) Lab, Micro, Other Results Recent Impressions Head CT 05/11/17 0600 Signed Impressions: Service Date/Time: Thursday, May 11, 2017 04:20 - CONCLUSION: Slowly resolving multifocal intracranial hemorrhage as above. Approximately 3 mm of rightward midline shift similar to before. No new bleed or other acute abnormality. Darin Nelson MD Laboratory Tests Test 05/10/17 03:54 05/11/17 04:13 05/11/17 13:15 White Blood Count 10.9 TH/MM3 11.6 TH/MM3 Red Blood Count 4.67 MIL/MM3 4.73 MIL/MM3 Hemoglobin 15.4 GM/DL 15.2 GM/DL Hematocrit 43.8 % 44.5 % Mean Corpuscular Volume 93.8 FL 94.2 FL Mean Corpuscular Hemoglobin 33.0 PG 32.2 PG Mean Corpuscular Hemoglobin Concent 35.2 % 34.2 % Red Cell Distribution Width 13.5 % 13.5 % Platelet Count 199 TH/MM3 210 TH/MM3 Mean Platelet Volume 10.4 FL 9.9 FL Blood Urea Nitrogen 16 MG/DL 16 MG/DL Creatinine 0.63 MG/DL 0.74 MG/DL Random Glucose 107 MG/DL 112 MG/DL Calcium Level 9.2 MG/DL 8.9 MG/DL Sodium Level 135 MEQ/L 138 MEQ/L Potassium Level 3.6 MEQ/L 3.8 MEQ/L Chloride Level 102 MEQ/L 104 MEQ/L Carbon Dioxide Level 23.9 MEQ/L 24.8 MEQ/L Anion Gap 9 MEQ/L 9 MEQ/L Estimat Glomerular Filtration Rate 128 ML/MIN 106 ML/MIN Hemoglobin A1c 6.2 % Triglycerides Level 56 MG/DL Cholesterol Level 112 MG/DL LDL Cholesterol 51 MG/DL HDL Cholesterol 49.6 MG/DL Cholesterol/HDL Ratio 2.25 RATIO Ammonia 15 MCMOL/L (Brent Weber) Medical Decision Making Impression and Plan Impression: 1. 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 There is a nondisplaced right occipital skull bone fracture also. There is a slight progression of these contusions as a hemorrhage in the followup CT scan but again without mass effect. 2. It is unclear whether he had a near-syncopal episode or he fell because of the intoxication and then suffered from this traumatic brain injury. Pts states he has had 1 near syncopal episode and 2 syncopal episodes. She states he was evaluated before at [facility] in [place] and had a workup but nothing was found per pt and his . She is requesting a Cardiology evaluation. 3. Heart ischemia per stress test 4. Hypertension Patient still with headache, slow to response, slight confusion, otherwise neurologically intact. Repeat CT brain with resolving haemorrhages. Cleared by Cardiology for discharge w/outpatient follow up. Plan: Discussed plan of care with patient and Nursing. Frequent neuro checks. Stat CT brain for any worsening in neuro status. Pain control. Hospitalist for medical management. Per note yesterday plan was to keep in ISC due to elevated blood pressure. From a NSGY perspective the patient may transfer to a regular med/surg floor when medically indicated. Appreciate Hospitalist input and assistance. (Brent Weber) Attending Statement The exam, history, and the medical decision-making described in the above note were completed with the assistance of the mid-level provider. I reviewed and agree with the findings presented. I attest that I had a [id number] encounter with the patient on the same day, and personally performed and documented my assessment and findings in the medical record. He remains somewhat lethargic but arouses easily. His speech is clear and appropriate Relatively intact recent and remote memory Follow simple commands well Blood pressure remains sporadically elevated. Continuing ISC vital signs and neurologic checks until medically cleared for floor. He is clear for discharge from cardiology standpoint (Hernan Woodward MD) Brent Weber May 12, 2017 09:18 Hernan Woodward MD May 12, 2017 21:20
[2017-05-12] MEDS: LACTULOSE SYRUP 20 GM/30 ML CUP PO PRN (12:17)
[2017-05-12] MEDS: SENNOSIDES 8.6 MG TAB PO PRN (12:17)
--- NOTE | 2017-05-12 14:48 | HHI.PR ---
Subjective Remarks Follow-up hypertension. BP much improved with slight elevation in the morning before morning BP meds. Has not required when necessary medications today. Improving headache. Still with poor by mouth discussed with RN Objective Vitals Vital Signs Date Time Temp Pulse Resp B/P (MAP) Pulse Ox O2 Delivery O2 Flow Rate FiO2 05/12/17 14:00 78 05/12/17 12:00 98.7 71 17 150/81 (104) 93 05/12/17 12:00 71 05/12/17 10:00 69 05/12/17 08:00 97.9 65 14 157/76 (103) 94 05/12/17 08:00 65 05/12/17 06:00 69 05/12/17 04:00 98.2 70 14 138/67 (90) 95 05/12/17 04:00 68 05/12/17 02:00 63 05/12/17 00:00 98.4 76 20 148/89 (108) 94 05/12/17 00:00 76 05/11/17 22:00 56 05/11/17 20:20 97 21 05/11/17 20:00 98.7 75 16 142/70 (94) 99 05/11/17 20:00 70 05/11/17 18:00 73 05/11/17 16:00 98.2 74 12 138/76 (96) 97 05/11/17 16:00 73 I/O 05/11/17 05/11/17 05/11/17 05/12/17 05/12/17 05/12/17 07:00 15:00 23:00 07:00 15:00 23:00 Intake Total 560 ml 2274 ml 500 ml Output Total 1200 ml 1400 ml 1200 ml Balance -640 ml 874 ml -700 ml Intake Oral 480 ml 500 ml IV Total 560 ml 1794 ml Output Urine Total 1200 ml 1400 ml 1200 ml # Voids 2 # Bowel Movements 0 Result Diagram: 05/11/17 04105/11/17412 Objective Remarks GENERAL: This is a well-nourished, well-developed patient Skin: No rashes or lesions CARDIOVASCULAR: Regular rate and rhythm without murmurs, gallops, or rubs. RESPIRATORY: Clear to auscultation. Breath sounds equal bilaterally. No wheezes , rales, or rhonchi. GASTROINTESTINAL: Abdomen soft, non-tender, nondistended. No guarding. MUSCULOSKELETAL: Extremities without clubbing, cyanosis, or edema. No joint tenderness, effusion, or edema noted. No calf tenderness. Negative Homans sign bilaterally. NEUROLOGICAL: Motor and sensory grossly within normal limits. Easily arousable and oriented 4.. Moving all extremities Procedures none A/P Problem List: (1) Subarachnoid hemorrhage after traumatic injury without open intracranial wound, with prolonged lossof consciousness and return to pre-existing level of consciousness ICD Code: S06.6X9A - Traumatic subarachnoid hemorrhage with loss of consciousness of unspecified duration, initial encounter Status: Acute (2) Syncope ICD Code: R55 - Syncope and collapse Assessment and Plan 66-year-old male with who presented with head trauma [facility] consulted for medical management on 05/08/2017 Encephalopathy which is multifactorial from TBI, uncontrolled hypertension and meds . Stable. Neurochecks, seizure precautions and follow up EEG which did not show seizure. 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 There is a nondisplaced right occipital skull bone fracture also. -Repeat CT scan of the head showed There is a slight progression of these contusions as a hemorrhage without mass effect. -Confusion improved but he continues to have a headache. Headache is the same and has not worsened. Due to being sedated neurosurgeon decreased pain medication. -Management per neurosurgeon. -Will get a CT scan if confusion worsens. -PT is following. Accelerated hypertension -Resolved continue lisinopril to 20 minutes twice a day, Norvasc 5 mg twice a day and hydralazine and as needed IV Vasotec and clonidine. We'll change timing of Norvasc to 7 in the morning and 4 PM to provide better coverage Questionable syncope -Patient was found intoxicated with multiple substance. Cardiac workup was done which showed a concerning nuclear stress test with ischemia in the septum, inferior lateral wall and apex. Copy Director consulted stated that patient is not a candidate for left heart catheterization due to recent intracranial bleed. He is asymptomatic. -Urine drug screen was positive for alcohol, cannabinoids and opioids. -Copy Director recommends a 24-hour Holter monitor as outpatient. -Patient was also started on a statin. Neurosurgery has cleared patient for aspirin. Unable to start beta katiana secondary to bradycardia -Echo he had a EF of 55-60%. Anorexia -Continue with heart healthy diet and Ensure. -head char filter tank tender consulted. Noncompliant. Counseled DVT prophylaxis -SCDs -Anticoagulations per primary team. Discharge Planning Stable for transfer to floor. Patient advised to get out of bed all day with assistance Davis Gomez MD May 12, 2017 14:48
--- NOTE | 2017-05-12 14:48 | HHI.PR ---
Subjective Remarks Follow-up hypertension. BP much improved with slight elevation in the morning before morning BP meds. Has not required when necessary medications today. Improving headache. Still with poor by mouth discussed with RN Objective Vitals Vital Signs Date Time Temp Pulse Resp B/P (MAP) Pulse Ox O2 Delivery O2 Flow Rate FiO2 05/12/17 14:00 78 05/12/17 12:00 98.7 71 17 150/81 (104) 93 05/12/17 12:00 71 05/12/17 10:00 69 05/12/17 08:00 97.9 65 14 157/76 (103) 94 05/12/17 08:00 65 05/12/17 06:00 69 05/12/17 04:00 98.2 70 14 138/67 (90) 95 05/12/17 04:00 68 05/12/17 02:00 63 05/12/17 00:00 98.4 76 20 148/89 (108) 94 05/12/17 00:00 76 05/11/17 22:00 56 05/11/17 20:20 97 21 05/11/17 20:00 98.7 75 16 142/70 (94) 99 05/11/17 20:00 70 05/11/17 18:00 73 05/11/17 16:00 98.2 74 12 138/76 (96) 97 05/11/17 16:00 73 I/O 05/11/17 05/11/17 05/11/17 05/12/17 05/12/17 05/12/17 07:00 15:00 23:00 07:00 15:00 23:00 Intake Total 560 ml 2274 ml 500 ml Output Total 1200 ml 1400 ml 1200 ml Balance -640 ml 874 ml -700 ml Intake Oral 480 ml 500 ml IV Total 560 ml 1794 ml Output Urine Total 1200 ml 1400 ml 1200 ml # Voids 2 # Bowel Movements 0 Result Diagram: 05/11/17 04105/11/17412 Objective Remarks GENERAL: This is a well-nourished, well-developed patient Skin: No rashes or lesions CARDIOVASCULAR: Regular rate and rhythm without murmurs, gallops, or rubs. RESPIRATORY: Clear to auscultation. Breath sounds equal bilaterally. No wheezes , rales, or rhonchi. GASTROINTESTINAL: Abdomen soft, non-tender, nondistended. No guarding. MUSCULOSKELETAL: Extremities without clubbing, cyanosis, or edema. No joint tenderness, effusion, or edema noted. No calf tenderness. Negative Homans sign bilaterally. NEUROLOGICAL: Motor and sensory grossly within normal limits. Easily arousable and oriented 4.. Moving all extremities Procedures none A/P Problem List: (1) Subarachnoid hemorrhage after traumatic injury without open intracranial wound, with prolonged lossof consciousness and return to pre-existing level of consciousness ICD Code: S06.6X9A - Traumatic subarachnoid hemorrhage with loss of consciousness of unspecified duration, initial encounter Status: Acute (2) Syncope ICD Code: R55 - Syncope and collapse Assessment and Plan 66-year-old male with who presented with head trauma [facility] consulted for medical management on 05/08/2017 Encephalopathy which is multifactorial from TBI, uncontrolled hypertension and meds . Stable. Neurochecks, seizure precautions and follow up EEG which did not show seizure. 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 There is a nondisplaced right occipital skull bone fracture also. -Repeat CT scan of the head showed There is a slight progression of these contusions as a hemorrhage without mass effect. -Confusion improved but he continues to have a headache. Headache is the same and has not worsened. Due to being sedated neurosurgeon decreased pain medication. -Management per neurosurgeon. -Will get a CT scan if confusion worsens. -PT is following. Accelerated hypertension -Resolved continue lisinopril to 20 minutes twice a day, Norvasc 5 mg twice a day and hydralazine and as needed IV Vasotec and clonidine. We'll change timing of Norvasc to 7 in the morning and 4 PM to provide better coverage Questionable syncope -Patient was found intoxicated with multiple substance. Cardiac workup was done which showed a concerning nuclear stress test with ischemia in the septum, inferior lateral wall and apex. Pitching Coach consulted stated that patient is not a candidate for left heart catheterization due to recent intracranial bleed. He is asymptomatic. -Urine drug screen was positive for alcohol, cannabinoids and opioids. -Pitching Coach recommends a 24-hour Holter monitor as outpatient. -Patient was also started on a statin. Neurosurgery has cleared patient for aspirin. Unable to start beta katiana secondary to bradycardia -Echo he had a EF of 55-60%. Anorexia -Continue with heart healthy diet and Ensure. -environmental test technician consulted. Noncompliant. Counseled DVT prophylaxis -SCDs -Anticoagulations per primary team. Discharge Planning Stable for transfer to floor. Patient advised to get out of bed all day with assistance Davis Gomez MD May 12, 2017 14:48
--- NOTE | 2017-05-12 14:48 | HHI.PR ---
Subjective Remarks Follow-up hypertension. BP much improved with slight elevation in the morning before morning BP meds. Has not required when necessary medications today. Improving headache. Still with poor by mouth discussed with RN Objective Vitals Vital Signs Date Time Temp Pulse Resp B/P (MAP) Pulse Ox O2 Delivery O2 Flow Rate FiO2 05/12/17 14:00 78 05/12/17 12:00 98.7 71 17 150/81 (104) 93 05/12/17 12:00 71 05/12/17 10:00 69 05/12/17 08:00 97.9 65 14 157/76 (103) 94 05/12/17 08:00 65 05/12/17 06:00 69 05/12/17 04:00 98.2 70 14 138/67 (90) 95 05/12/17 04:00 68 05/12/17 02:00 63 05/12/17 00:00 98.4 76 20 148/89 (108) 94 05/12/17 00:00 76 05/11/17 22:00 56 05/11/17 20:20 97 21 05/11/17 20:00 98.7 75 16 142/70 (94) 99 05/11/17 20:00 70 05/11/17 18:00 73 05/11/17 16:00 98.2 74 12 138/76 (96) 97 05/11/17 16:00 73 I/O 05/11/17 05/11/17 05/11/17 05/12/17 05/12/17 05/12/17 07:00 15:00 23:00 07:00 15:00 23:00 Intake Total 560 ml 2274 ml 500 ml Output Total 1200 ml 1400 ml 1200 ml Balance -640 ml 874 ml -700 ml Intake Oral 480 ml 500 ml IV Total 560 ml 1794 ml Output Urine Total 1200 ml 1400 ml 1200 ml # Voids 2 # Bowel Movements 0 Result Diagram: 05/11/17 04105/11/17412 Objective Remarks GENERAL: This is a well-nourished, well-developed patient Skin: No rashes or lesions CARDIOVASCULAR: Regular rate and rhythm without murmurs, gallops, or rubs. RESPIRATORY: Clear to auscultation. Breath sounds equal bilaterally. No wheezes , rales, or rhonchi. GASTROINTESTINAL: Abdomen soft, non-tender, nondistended. No guarding. MUSCULOSKELETAL: Extremities without clubbing, cyanosis, or edema. No joint tenderness, effusion, or edema noted. No calf tenderness. Negative Homans sign bilaterally. NEUROLOGICAL: Motor and sensory grossly within normal limits. Easily arousable and oriented 4.. Moving all extremities Procedures none A/P Problem List: (1) Subarachnoid hemorrhage after traumatic injury without open intracranial wound, with prolonged lossof consciousness and return to pre-existing level of consciousness ICD Code: S06.6X9A - Traumatic subarachnoid hemorrhage with loss of consciousness of unspecified duration, initial encounter Status: Acute (2) Syncope ICD Code: R55 - Syncope and collapse Assessment and Plan 66-year-old male with who presented with head trauma [facility] consulted for medical management on 05/08/2017 Encephalopathy which is multifactorial from TBI, uncontrolled hypertension and meds . Stable. Neurochecks, seizure precautions and follow up EEG which did not show seizure. Limit MARSHMALLOW MACHINE WORKER active drugs. 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 There is a nondisplaced right occipital skull bone fracture also. -Repeat CT scan of the head showed There is a slight progression of these contusions as a hemorrhage without mass effect. -Confusion improved but he continues to have a headache. Headache is the same and has not worsened. Due to being sedated neurosurgeon decreased pain medication. -Management per neurosurgeon. -Will get a CT scan if confusion worsens. -PT is following. Accelerated hypertension -Resolved continue lisinopril to 20 minutes twice a day, Norvasc 5 mg twice a day and hydralazine and as needed IV Vasotec and clonidine. We'll change timing of Norvasc to 7 in the morning and 4 PM to provide better coverage Questionable syncope -Patient was found intoxicated with multiple substance. Cardiac workup was done which showed a concerning nuclear stress test with ischemia in the septum, inferior lateral wall and apex. Professor Of Religious Studies consulted stated that patient is not a candidate for left heart catheterization due to recent intracranial bleed. He is asymptomatic. -Urine drug screen was positive for alcohol, cannabinoids and opioids. -Professor Of Religious Studies recommends a 24-hour Holter monitor as outpatient. -Patient was also started on a statin. Neurosurgery has cleared patient for aspirin. Unable to start beta katiana secondary to bradycardia -Echo he had a EF of 55-60%. Anorexia -Continue with heart healthy diet and Ensure. -blending supervisor consulted. Noncompliant. Counseled DVT prophylaxis -SCDs -Anticoagulations per primary team. Discharge Planning Stable for transfer to floor. Patient advised to get out of bed all day with assistance Davis Gomez MD May 12, 2017 14:48
[2017-05-12] MEDS: POLYETHYLENE GLYCOL 17 GM PKG PO SCH (16:39)
[2017-05-12] MEDS: CITALOPRAM HYDROBROMIDE 20 MG TAB PO SCH (19:57)
[2017-05-13] VITALS (12 sets, daily range): BP systolic 112–144; BP diastolic 64–78; PULSE 65–94; RESP 12–23; TEMP 97.9–98.9; O2SAT 93–95
[2017-05-13] MEDS: hydrALAZINE HCL 50 MG TAB PO SCH ×4 (01:51→19:26)
[2017-05-13 05:13] LABS: BICARBONATE 25.9 MEQ/L (21.0-32.0); CALCIUM 9.3 MG/DL (8.5-10.1); CREATININE 0.75 MG/DL (0.60-1.30); MAGNESIUM 2.2 MG/DL (1.5-2.5)
[2017-05-13] MEDS: amLODIPine BESYLATE 5 MG TAB PO SCH ×2 (06:00→16:14)
[2017-05-13] MEDS: GABAPENTIN 100 MG CAP PO SCH ×2 (08:42→20:16)
[2017-05-13] MEDS: PANTOPRAZOLE SOD 40 MG DELAYED RELEASE TAB PO SCH (08:42)
[2017-05-13] MEDS: DOCUSATE SODIUM 50 MG/SENNA 8.6 MG TAB PO SCH ×2 (08:42→20:16)
[2017-05-13] MEDS: LISINOPRIL 20 MG TAB PO SCH ×2 (08:43→20:15)
[2017-05-13] MEDS: ATORVASTATIN 20 MG TAB PO SCH (08:43)
[2017-05-13] MEDS: ASPIRIN EC 81 MG TABEC PO SCH (08:43)
[2017-05-13] MEDS: levETIRAcetam 500 MG TAB PO SCH ×2 (08:43→20:15)
[2017-05-13] MEDS: BACITRACIN TOP OINT 15 GM TUBE TOP SCH ×2 (08:43→20:16)
[2017-05-13] MEDS: POLYETHYLENE GLYCOL 17 GM PKG PO SCH (08:44)
[2017-05-13] MEDS: SODIUM CHLORIDE 0.9% FLUSH 10 ML FLUSH IV FLUSH SCH ×2 (08:44→20:16)
[2017-05-13] MEDS: ACETAMINOPHEN/HYDROcodone 325 MG/5 MG TAB PO PRN (08:58)
--- NOTE | 2017-05-13 11:24 | HHI.NSPN ---
History Chief Complaint: Slight headache Interval History No new complaints. Blood pressure control improved. Exam Results Vital Signs Date Time Temp Pulse Resp B/P (MAP) Pulse Ox O2 Delivery O2 Flow Rate FiO2 05/13/17 10:00 90 05/13/17 09:58 17 05/13/17 08:00 98.3 139/67 (91) 94 05/12/17 20:04 21 Intake and Output 05/13/17 05/13/17 05/14/17 08:00 16:00 00:00 Intake Total 300 ml Output Total 600 ml Balance -300 ml Physical Examination Gen.: Sitting up in bed. Mild to moderate lethargy. No apparent distress RESPIRATORY/CHEST: CTAB w/o W/R/R, equal excursion, nonlaboured, on RA. CARDIOVASCULAR: Regular without murmur GASTROINTESTINAL: Abdomen soft, nontender, positive bowel sounds. EXTREMITIES: LANDA w/o difficulty, NTTP, no evident deformity or clubbing, small abrasion to distal right lower leg. SKIN: Warm, dry & intact except for abrasion to the distal right lower leg healing w/o complication. NEUROLOGIC: Mild to moderate lethargy. Arouses easily to voice. oriented to person, place and year but not month. Speech clear & appropriate but slow in response. CN II-XII appear grossly intact. Sensation is intact to light touch to all extremities. Motor strength is 5/5 to all major flexion & extension muscle groups. Lab, Micro, Other Results Laboratory Tests Test 05/13/17 04:06 Blood Urea Nitrogen 15 MG/DL Creatinine 0.75 MG/DL Random Glucose 115 MG/DL Calcium Level 9.3 MG/DL Magnesium Level 2.2 MG/DL Sodium Level 133 MEQ/L Potassium Level 3.6 MEQ/L Chloride Level 99 MEQ/L Carbon Dioxide Level 25.9 MEQ/L Anion Gap 8 MEQ/L Estimat Glomerular Filtration Rate 105 ML/MIN Medical Decision Making Impression and Plan Impression: 1. Stable neurologic function following traumatic brain injury. 2. Mild hyponatremia Plan: Patient has been cleared for regular floor per medicine service. Continue scheduled and as needed antihypertensive medications Continue to try to mobilize out of bed and increase activity and diet as tolerated. Hernan Woodward MD May 13, 2017 11:23
--- NOTE | 2017-05-13 13:21 | HHI.PR ---
Subjective Remarks Follow-up Hypertension. BP readings much improved. Did not require when necessary. Improving headache. He is out of bed to chair ablated hallway earlier. Oral intake still suboptimal. Seen with . Discussed with RN. Refer to [facility] or [facility] Objective Vitals Vital Signs Date Time Temp Pulse Resp B/P (MAP) Pulse Ox O2 Delivery O2 Flow Rate FiO2 05/13/17 12:00 98.0 81 16 112/67 (82) 93 05/13/17 12:00 81 05/13/17 11:45 94 21 05/13/17 10:00 90 05/13/17 09:58 17 05/13/17 08:00 65 05/13/17 08:00 98.3 65 18 139/67 (91) 94 05/13/17 06:00 67 05/13/17 04:00 84 05/13/17 04:00 97.9 66 12 144/68 (93) 95 05/13/17 02:00 82 05/13/17 00:00 80 05/13/17 00:00 98.9 94 23 144/78 (100) 95 05/12/17 22:00 68 05/12/17 20:04 96 21 05/12/17 20:00 67 05/12/17 20:00 98.2 76 14 141/81 (101) 94 05/12/17 18:00 67 05/12/17 16:00 68 05/12/17 16:00 98.5 68 20 154/85 (108) 95 05/12/17 14:00 78 I/O 05/12/17 05/12/17 05/12/17 05/13/17 05/13/17 05/13/17 07:00 15:00 23:00 07:00 15:00 23:00 Intake Total 500 ml 360 ml 300 ml Output Total 1200 ml 1075 ml 600 ml Balance -700 ml -715 ml -300 ml Intake Oral 500 ml 360 ml 300 ml Output Urine Total 1200 ml 1075 ml 600 ml # Bowel Movements 0 0 Result Diagram: 05/11/17 0413 05/13/17 0406 Objective Remarks GENERAL: This is a well-nourished, well-developed patient Skin: No rashes or lesions CARDIOVASCULAR: Regular rate and rhythm without murmurs, gallops, or rubs. RESPIRATORY: Clear to auscultation. Breath sounds equal bilaterally. No wheezes , rales, or rhonchi. GASTROINTESTINAL: Abdomen soft, non-tender, nondistended. No guarding. MUSCULOSKELETAL: Extremities without clubbing, cyanosis, or edema. No joint tenderness, effusion, or edema noted. No calf tenderness. Negative Homans sign bilaterally. NEUROLOGICAL: Motor and sensory grossly within normal limits. Awake and alert and oriented 4. Moving all extremities Procedures none A/P Problem List: (1) Subarachnoid hemorrhage after traumatic injury without open intracranial wound, with prolonged lossof consciousness and return to pre-existing level of consciousness ICD Code: S06.6X9A - Traumatic subarachnoid hemorrhage with loss of consciousness of unspecified duration, initial encounter Status: Acute (2) Syncope ICD Code: R55 - Syncope and collapse Assessment and Plan 66-year-old male with who presented with head trauma [facility] consulted for medical management on 05/08/2017 Encephalopathy which is multifactorial from TBI, uncontrolled hypertension and meds . Resolving. Neurochecks, seizure precautions and follow up EEG which did not show seizure. Limit FIELD CANE SCALER HELPER active drugs. 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 There is a nondisplaced right occipital skull bone fracture also. Stable -Repeat CT scan of the head showed There is a slight progression of these contusions as a hemorrhage without mass effect. -Confusion improved but he continues to have a headache. Headache is the same and has not worsened. Due to being sedated neurosurgeon decreased pain medication. -Management per neurosurgeon. -Will get a CT scan if confusion worsens. -PT is following. Accelerated hypertension. -Resolved continue lisinopril to 20 milligrams at night, Norvasc 5 mg twice a day and hydralazine 50 mg 3 times a day and as needed IV Vasotec and clonidine. Questionable syncope -Patient was found intoxicated with multiple substance. Cardiac workup was done which showed a concerning nuclear stress test with ischemia in the septum, inferior lateral wall and apex. Lyric Writer consulted stated that patient is not a candidate for left heart catheterization due to recent intracranial bleed. He is asymptomatic. -Urine drug screen was positive for alcohol, cannabinoids and opioids. -Lyric Writer recommends a 24-hour Holter monitor as outpatient. -Patient was also started on a statin. Neurosurgery has cleared patient for aspirin. Unable to start beta katiana secondary to bradycardia -Echo he had a EF of 55-60%. Anorexia -Continue with heart healthy diet and Ensure. -assistant store leader consulted. Noncompliant. Counseled DVT prophylaxis -SCDs -Anticoagulations per primary team. Discharge Planning Stable for transfer to floor. Patient advised to get out of bed all day with assistance. Refer to [facility] or [facility] Davis Gomez MD May 13, 2017 13:21
--- NOTE | 2017-05-13 13:21 | HHI.PR ---
Subjective Remarks Follow-up Hypertension. BP readings much improved. Did not require when necessary. Improving headache. He is out of bed to chair ablated hallway earlier. Oral intake still suboptimal. Seen with . Discussed with RN. Refer to [place] or [facility] Objective Vitals Vital Signs Date Time Temp Pulse Resp B/P (MAP) Pulse Ox O2 Delivery O2 Flow Rate FiO2 05/13/17 12:00 98.0 81 16 112/67 (82) 93 05/13/17 12:00 81 05/13/17 11:45 94 21 05/13/17 10:00 90 05/13/17 09:58 17 05/13/17 08:00 65 05/13/17 08:00 98.3 65 18 139/67 (91) 94 05/13/17 06:00 67 05/13/17 04:00 84 05/13/17 04:00 97.9 66 12 144/68 (93) 95 05/13/17 02:00 82 05/13/17 00:00 80 05/13/17 00:00 98.9 94 23 144/78 (100) 95 05/12/17 22:00 68 05/12/17 20:04 96 21 05/12/17 20:00 67 05/12/17 20:00 98.2 76 14 141/81 (101) 94 05/12/17 18:00 67 05/12/17 16:00 68 05/12/17 16:00 98.5 68 20 154/85 (108) 95 05/12/17 14:00 78 I/O 05/12/17 05/12/17 05/12/17 05/13/17 05/13/17 05/13/17 07:00 15:00 23:00 07:00 15:00 23:00 Intake Total 500 ml 360 ml 300 ml Output Total 1200 ml 1075 ml 600 ml Balance -700 ml -715 ml -300 ml Intake Oral 500 ml 360 ml 300 ml Output Urine Total 1200 ml 1075 ml 600 ml # Bowel Movements 0 0 Result Diagram: 05/11/17 0413 05/13/17 0406 Objective Remarks GENERAL: This is a well-nourished, well-developed patient Skin: No rashes or lesions CARDIOVASCULAR: Regular rate and rhythm without murmurs, gallops, or rubs. RESPIRATORY: Clear to auscultation. Breath sounds equal bilaterally. No wheezes , rales, or rhonchi. GASTROINTESTINAL: Abdomen soft, non-tender, nondistended. No guarding. MUSCULOSKELETAL: Extremities without clubbing, cyanosis, or edema. No joint tenderness, effusion, or edema noted. No calf tenderness. Negative Homans sign bilaterally. NEUROLOGICAL: Motor and sensory grossly within normal limits. Awake and alert and oriented 4. Moving all extremities Procedures none A/P Problem List: (1) Subarachnoid hemorrhage after traumatic injury without open intracranial wound, with prolonged lossof consciousness and return to pre-existing level of consciousness ICD Code: S06.6X9A - Traumatic subarachnoid hemorrhage with loss of consciousness of unspecified duration, initial encounter Status: Acute (2) Syncope ICD Code: R55 - Syncope and collapse Assessment and Plan 66-year-old male with who presented with head trauma [facility] consulted for medical management on 05/08/2017 Encephalopathy which is multifactorial from TBI, uncontrolled hypertension and meds . Resolving. Neurochecks, seizure precautions and follow up EEG which did not show seizure. Limit REGISTERED MEDICAL TRANSCRIPTIONIST active drugs. 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 There is a nondisplaced right occipital skull bone fracture also. Stable -Repeat CT scan of the head showed There is a slight progression of these contusions as a hemorrhage without mass effect. -Confusion improved but he continues to have a headache. Headache is the same and has not worsened. Due to being sedated neurosurgeon decreased pain medication. -Management per neurosurgeon. -Will get a CT scan if confusion worsens. -PT is following. Accelerated hypertension. -Resolved continue lisinopril to 20 milligrams at night, Norvasc 5 mg twice a day and hydralazine 50 mg 3 times a day and as needed IV Vasotec and clonidine. Questionable syncope -Patient was found intoxicated with multiple substance. Cardiac workup was done which showed a concerning nuclear stress test with ischemia in the septum, inferior lateral wall and apex. Cmm Inspector consulted stated that patient is not a candidate for left heart catheterization due to recent intracranial bleed. He is asymptomatic. -Urine drug screen was positive for alcohol, cannabinoids and opioids. -Cmm Inspector recommends a 24-hour Holter monitor as outpatient. -Patient was also started on a statin. Neurosurgery has cleared patient for aspirin. Unable to start beta katiana secondary to bradycardia -Echo he had a EF of 55-60%. Anorexia -Continue with heart healthy diet and Ensure. -dining room hostess consulted. Noncompliant. Counseled DVT prophylaxis -SCDs -Anticoagulations per primary team. Discharge Planning Stable for transfer to floor. Patient advised to get out of bed all day with assistance. Refer to [facility] or [facility] Davis Gomez MD May 13, 2017 13:21
--- NOTE | 2017-05-13 13:21 | HHI.PR ---
Subjective Remarks Follow-up Hypertension. BP readings much improved. Did not require when necessary. Improving headache. He is out of bed to chair ablated hallway earlier. Oral intake still suboptimal. Seen with . Discussed with RN. Refer to [place] or [facility] Objective Vitals Vital Signs Date Time Temp Pulse Resp B/P (MAP) Pulse Ox O2 Delivery O2 Flow Rate FiO2 05/13/17 12:00 98.0 81 16 112/67 (82) 93 05/13/17 12:00 81 05/13/17 11:45 94 21 05/13/17 10:00 90 05/13/17 09:58 17 05/13/17 08:00 65 05/13/17 08:00 98.3 65 18 139/67 (91) 94 05/13/17 06:00 67 05/13/17 04:00 84 05/13/17 04:00 97.9 66 12 144/68 (93) 95 05/13/17 02:00 82 05/13/17 00:00 80 05/13/17 00:00 98.9 94 23 144/78 (100) 95 05/12/17 22:00 68 05/12/17 20:04 96 21 05/12/17 20:00 67 05/12/17 20:00 98.2 76 14 141/81 (101) 94 05/12/17 18:00 67 05/12/17 16:00 68 05/12/17 16:00 98.5 68 20 154/85 (108) 95 05/12/17 14:00 78 I/O 05/12/17 05/12/17 05/12/17 05/13/17 05/13/17 05/13/17 07:00 15:00 23:00 07:00 15:00 23:00 Intake Total 500 ml 360 ml 300 ml Output Total 1200 ml 1075 ml 600 ml Balance -700 ml -715 ml -300 ml Intake Oral 500 ml 360 ml 300 ml Output Urine Total 1200 ml 1075 ml 600 ml # Bowel Movements 0 0 Result Diagram: 05/11/17 0413 05/13/17 0406 Objective Remarks GENERAL: This is a well-nourished, well-developed patient Skin: No rashes or lesions CARDIOVASCULAR: Regular rate and rhythm without murmurs, gallops, or rubs. RESPIRATORY: Clear to auscultation. Breath sounds equal bilaterally. No wheezes , rales, or rhonchi. GASTROINTESTINAL: Abdomen soft, non-tender, nondistended. No guarding. MUSCULOSKELETAL: Extremities without clubbing, cyanosis, or edema. No joint tenderness, effusion, or edema noted. No calf tenderness. Negative Homans sign bilaterally. NEUROLOGICAL: Motor and sensory grossly within normal limits. Awake and alert and oriented 4. Moving all extremities Procedures none A/P Problem List: (1) Subarachnoid hemorrhage after traumatic injury without open intracranial wound, with prolonged lossof consciousness and return to pre-existing level of consciousness ICD Code: S06.6X9A - Traumatic subarachnoid hemorrhage with loss of consciousness of unspecified duration, initial encounter Status: Acute (2) Syncope ICD Code: R55 - Syncope and collapse Assessment and Plan 66-year-old male with who presented with head trauma [facility] consulted for medical management on 05/08/2017 Encephalopathy which is multifactorial from TBI, uncontrolled hypertension and meds . Resolving. Neurochecks, seizure precautions and follow up EEG which did not show seizure. Limit RADIOLOGY RECEPTIONIST active drugs. 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 There is a nondisplaced right occipital skull bone fracture also. Stable -Repeat CT scan of the head showed There is a slight progression of these contusions as a hemorrhage without mass effect. -Confusion improved but he continues to have a headache. Headache is the same and has not worsened. Due to being sedated neurosurgeon decreased pain medication. -Management per neurosurgeon. -Will get a CT scan if confusion worsens. -PT is following. Accelerated hypertension. -Resolved continue lisinopril to 20 milligrams at night, Norvasc 5 mg twice a day and hydralazine 50 mg 3 times a day and as needed IV Vasotec and clonidine. Questionable syncope -Patient was found intoxicated with multiple substance. Cardiac workup was done which showed a concerning nuclear stress test with ischemia in the septum, inferior lateral wall and apex. Spring Layer consulted stated that patient is not a candidate for left heart catheterization due to recent intracranial bleed. He is asymptomatic. -Urine drug screen was positive for alcohol, cannabinoids and opioids. -Spring Layer recommends a 24-hour Holter monitor as outpatient. -Patient was also started on a statin. Neurosurgery has cleared patient for aspirin. Unable to start beta katiana secondary to bradycardia -Echo he had a EF of 55-60%. Anorexia -Continue with heart healthy diet and Ensure. -internal affairs investigator consulted. Noncompliant. Counseled DVT prophylaxis -SCDs -Anticoagulations per primary team. Discharge Planning Stable for transfer to floor. Patient advised to get out of bed all day with assistance. Refer to [place] or [facility] Davis Gomez MD May 13, 2017 13:21
[2017-05-13] MEDS ORDERED: CELE20TA PO (14:08)
[2017-05-13] MEDS ORDERED: ASPI-99 PO (14:08)
[2017-05-13] MEDS ORDERED: SENN1TAB PO (14:08)
[2017-05-13] MEDS ORDERED: ATOR20TA15 PO (14:08)
[2017-05-13] MEDS ORDERED: POLY17S PO (14:08)
[2017-05-13] MEDS ORDERED: LEVE500 PO (14:08)
[2017-05-13] MEDS: ACETAMINOPHEN 325 MG TAB PO PRN (16:15)
[2017-05-13] MEDS: CITALOPRAM HYDROBROMIDE 20 MG TAB PO SCH (20:16)
[2017-05-14] VITALS (7 sets, daily range): BP systolic 113–140; BP diastolic 64–83; PULSE 62–91; RESP 11–22; TEMP 98.1–99.6; O2SAT 93–95
[2017-05-14] MEDS: ACETAMINOPHEN/HYDROcodone 325 MG/10 MG TAB PO PRN ×2 (01:10→08:49)
[2017-05-14] MEDS: MORPHINE SULFATE 4 MG/ML INJ IV PUSH PRN (01:47)
[2017-05-14] MEDS: amLODIPine BESYLATE 5 MG TAB PO SCH ×2 (07:31→18:03)
[2017-05-14] MEDS: hydrALAZINE HCL 50 MG TAB PO SCH ×3 (07:31→22:04)
--- NOTE | 2017-05-14 08:38 | HHI.NSPN ---
(Marc Wilhelm) History Chief Complaint: Slight headache (Marc Wilhelm) Interval History 66-year-old gentleman who presented to [facility] emergency room apparently he was drinking beer and relates that he passed out and fell and struck his head on concrete floor. Complains of headache although at this point denies any nausea or vomiting, double vision, or blurred vision. Chronic neck discomfort which is not worse. CT scan of the head obtained initially around midnight ratios the right small cerebellar hemisphere contusion along with multiple left frontal polar area contusions and traumatic subarachnoid hemorrhage in the frontal aspect and lateral Sylvian fissure aspect. He also has a nondisplaced right occipital bone fracture. CT of the cervical spine reveals extensive degenerate changes without any fractures. He was transfer to [facility] and has been monitored and neurologically remained stable. A followup CT scan this morning reveals progression of the contusions involving the left frontal lobe along with a right cerebellar hemisphere and left the insula with a stable left frontal polar 6 mm subdural without any mass effect or midline shift. 05/04: Pt awake and alert. Denies headache, nausea, vomiting, chest pain, sob , weakness. Pt agitated this morning. Pt and states he didn't drink enough to pass out and that he has had 1 near syncopal episode and 2 syncopal episodes in the last year and has had evaluation at [facility] in [place] and states nothing was found although doesn't recall seeing a Barratte Operator and states he never followed up with anyone. He states he doesn't see a pcp. 05/05: Pt awakens to voice. Complains of headache. No nausea or vomiting. Had stress test this morning. No chest pain or sob. 05/06: Pt awakens to voice. Denies headache currently. No nausea or vomiting. Follows commands. No chest pain or sob. RN states pt was confused earlier and tried to leave. 05/14: Pt awakens to voice. Complains of frontal headache. No n/v. No paresthesias in face or extremities. Following commands well. (Marc Wilhelm) Review of Systems General: Negative for: fever, chills, insomnia Respiratory: Negative for: shortness of breath, cough, sputum Cardiovascular: Negative for: chest pain Gastrointestinal: Negative for: nausea, vomitting, diarrhea, constipation ( Marc Wilhelm) Exam Results Vital Signs Date Time Temp Pulse Resp B/P (MAP) Pulse Ox O2 Delivery O2 Flow Rate FiO2 05/14/17 08:00 98.1 70 11 140/82 (101) 94 05/13/17 11:45 21 Intake and Output 05/14/17 05/14/17 05/15/17 08:00 16:00 00:00 Intake Total 200 ml Output Total 600 ml Balance -400 ml (Marc Wilhelm) Physical Examination GENERAL: Pt awakens to voice and is in NAD. EYES: Pupils equal. Sclera anicteric RESPIRATORY/CHEST: CTAB w/o W/R/R, equal excursion, nonlaboured, on RA. CARDIOVASCULAR: Regular without murmur GASTROINTESTINAL: Abdomen soft, nontender, positive bowel sounds. EXTREMITIES: LANDA w/o difficulty, NTTP, no evident deformity or clubbing, small abrasion to distal right lower leg. SKIN: Warm, dry & intact except for abrasion to the distal right lower leg healing w/o complication. NEUROLOGIC: Arouses easily to voice. Speech clear & appropriate but slow in response. Sensation is intact to light touch to all extremities. MUSCLE: Motor strength is 5/5 to all major flexion & extension muscle groups. (Marc Wilhelm) Lab, Micro, Other Results Last Impressions Head CT 05/11/17 0600 Signed Impressions: Service Date/Time: Thursday, May 11, 2017 04:20 - CONCLUSION: Slowly resolving multifocal intracranial hemorrhage as above. Approximately 3 mm of rightward midline shift similar to before. No new bleed or other acute abnormality. Darin Nelson MD Myocardial Perfusion Scan Nuc Med 05/05/17 0000 Signed Impressions: Service Date/Time: Friday, May 05, 2017 09:29 - CONCLUSION: Several areas is suspected mild ischemia in the septum and inferior lateral wall and inferior apex. RISK CATEGORY: Intermediate (1-3%% Annual Mortality Rate) Darin Murray MD Cervical Spine CT 05/03/17 0001 Signed Impressions: Service Date/Time: April 00:14 - CONCLUSION: 1. Moderate degenerative changes as described above. There is no evidence of acute fracture. 2. Nondisplaced occipital bone fracture Phillip Torres MD Carotid Artery Ultrasound 05/03/17 0000 Signed Impressions: Service Date/Time: April 13:24 - CONCLUSION: Normal examination for a patient of this age. Keyur Jimenez MD (Marc Wilhelm) Medical Decision Making Impression and Plan 1. 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 There is a nondisplaced right occipital skull bone fracture also. There is a slight progression of these contusions as a hemorrhage in the followup CT scan but again without mass effect. 2. It us unclear whether he had a near-syncopal episode or he fell because of the intoxication and then suffered from this traumatic brain injury. Pts states he has had 1 near syncopal episode and 2 syncopal episodes. She states he was evaluated before at [facility] in [place] and had a workup but nothing was found per pt and his . She is requesting a Cardiology evaluation. PLAN Neurosurgical stable to transfer to inpatient rehab. Pt has been cleared medically with his new bp medications. Follow up in 2 weeks with a follow up CT head no contrast. (Marc Wilhelm) Attending Statement The exam, history, and the medical decision-making described in the above note were completed with the assistance of the mid-level provider. I reviewed and agree with the findings presented. I attest that I had a [id number] encounter with the patient on the same day, and personally performed and documented my assessment and findings in the medical record. Awake and alert and interacting. Ambulating with physical therapy. He is very impulsive and relates that she cannot take care of him at home with his current state although she is happy that he is improving. We'll plan on rehabilitation placement. (Wil Birmingham MD) Marc Wilhelm May 14, 2017 08:38 Wil Birmingham MD May 14, 2017 15:32
[2017-05-14] MEDS: POLYETHYLENE GLYCOL 17 GM PKG PO SCH (08:48)
[2017-05-14] MEDS: levETIRAcetam 500 MG TAB PO SCH ×2 (08:48→22:00)
[2017-05-14] MEDS: ATORVASTATIN 20 MG TAB PO SCH (08:48)
[2017-05-14] MEDS: ASPIRIN EC 81 MG TABEC PO SCH (08:48)
[2017-05-14] MEDS: GABAPENTIN 100 MG CAP PO SCH ×2 (08:49→21:59)
[2017-05-14] MEDS: DOCUSATE SODIUM 50 MG/SENNA 8.6 MG TAB PO SCH ×2 (08:49→22:00)
[2017-05-14] MEDS: BACITRACIN TOP OINT 15 GM TUBE TOP SCH ×2 (08:49→22:01)
[2017-05-14] MEDS: PANTOPRAZOLE SOD 40 MG DELAYED RELEASE TAB PO SCH (08:49)
[2017-05-14] MEDS: SODIUM CHLORIDE 0.9% FLUSH 10 ML FLUSH IV FLUSH SCH ×2 (08:49→22:01)
[2017-05-14] MEDS: LISINOPRIL 20 MG TAB PO SCH ×2 (08:49→22:00)
--- NOTE | 2017-05-14 10:53 | HHI.PR ---
Subjective Remarks Follow-up hypertension and encephalopathy. BP well controlled. He is now awake and alert and oriented 4. Resolving headache. Seen with . Discussed with RN Objective Vitals Vital Signs Date Time Temp Pulse Resp B/P (MAP) Pulse Ox O2 Delivery O2 Flow Rate FiO2 05/14/17 08:00 98.1 70 11 140/82 (101) 94 05/14/17 08:00 70 05/14/17 04:00 71 05/14/17 04:00 98.2 62 22 113/71 (85) 93 05/14/17 00:38 95 05/14/17 00:00 98.7 82 17 117/68 (84) 93 05/14/17 00:00 80 05/13/17 20:00 67 05/13/17 20:00 97.9 73 13 118/64 (82) 94 05/13/17 18:00 68 05/13/17 17:15 16 05/13/17 16:00 98.5 76 17 133/76 (95) 94 05/13/17 16:00 76 05/13/17 14:00 83 05/13/17 12:00 98.0 81 16 112/67 (82) 93 05/13/17 12:00 81 05/13/17 11:45 94 21 I/O 05/13/17 05/13/17 05/13/17 05/14/17 05/14/17 05/14/17 07:00 15:00 23:00 07:00 15:00 23:00 Intake Total 300 ml 480 ml 200 ml Output Total 600 ml 600 ml Balance -300 ml 480 ml -400 ml Intake Oral 300 ml 480 ml 200 ml Output Urine Total 600 ml 600 ml # Voids 3 # Bowel Movements 0 Result Diagram: 05/11/17 0413 05/13/17 0406 Objective Remarks GENERAL: This is a well-nourished, well-developed patient Skin: No rashes or lesions CARDIOVASCULAR: Regular rate and rhythm without murmurs, gallops, or rubs. RESPIRATORY: Clear to auscultation. Breath sounds equal bilaterally. No wheezes , rales, or rhonchi. GASTROINTESTINAL: Abdomen soft, non-tender, nondistended. No guarding. MUSCULOSKELETAL: Extremities without clubbing, cyanosis, or edema. No joint tenderness, effusion, or edema noted. No calf tenderness. Negative Homans sign bilaterally. NEUROLOGICAL: Motor and sensory grossly within normal limits. Awake and alert and oriented 4. Moving all extremities Procedures none A/P Problem List: (1) Subarachnoid hemorrhage after traumatic injury without open intracranial wound, with prolonged lossof consciousness and return to pre-existing level of consciousness ICD Code: S06.6X9A - Traumatic subarachnoid hemorrhage with loss of consciousness of unspecified duration, initial encounter Status: Acute (2) Syncope ICD Code: R55 - Syncope and collapse Assessment and Plan 66-year-old male with who presented with head trauma [facility] consulted for medical management on 05/08/2017 Encephalopathy which is multifactorial from TBI, uncontrolled hypertension and meds . Resolved. Neurochecks, seizure precautions and follow up EEG which did not show seizure. Limit SMOKE ROOM OPERATOR active drugs. 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 There is a nondisplaced right occipital skull bone fracture also. Stable -Repeat CT scan of the head showed There is a slight progression of these contusions as a hemorrhage without mass effect. -Confusion improved but he continues to have a headache. Headache is the same and has not worsened. Due to being sedated neurosurgeon decreased pain medication. -Management per neurosurgeon. -Will get a CT scan if confusion worsens. Neurosurgery recommends a repeat head CT in 2 weeks for follow-up -PT is following. Accelerated hypertension. -Resolved continue lisinopril to 20 milligrams twice a day, Norvasc 5 mg twice a day and hydralazine 50 mg 3 times a day and as needed IV Vasotec and clonidine. BP much improved Questionable syncope -Patient was found intoxicated with multiple substance. Cardiac workup was done which showed a concerning nuclear stress test with ischemia in the septum, inferior lateral wall and apex. [employer] consulted stated that patient is not a candidate for left heart catheterization due to recent intracranial bleed. He is asymptomatic. -Urine drug screen was positive for alcohol, cannabinoids and opioids. -[employer] recommends a 24-hour Holter monitor as outpatient. -Patient was also started on a statin. Neurosurgery has cleared patient for aspirin. Unable to start beta katiana secondary to bradycardia -Echo he had a EF of 55-60%. Anorexia -Continue with heart healthy diet and Ensure. -freight weigher consulted. Noncompliant. Counseled DVT prophylaxis -SCDs -Anticoagulations per primary team. Discharge Planning Stable for transfer to floor and discharge. Patient advised to get out of bed all day with assistance. Refer to [place] or [facility] Davis Gomez MD May 14, 2017 10:53
--- NOTE | 2017-05-14 10:53 | HHI.PR ---
Subjective Remarks Follow-up hypertension and encephalopathy. BP well controlled. He is now awake and alert and oriented 4. Resolving headache. Seen with . Discussed with RN Objective Vitals Vital Signs Date Time Temp Pulse Resp B/P (MAP) Pulse Ox O2 Delivery O2 Flow Rate FiO2 05/14/17 08:00 98.1 70 11 140/82 (101) 94 05/14/17 08:00 70 05/14/17 04:00 71 05/14/17 04:00 98.2 62 22 113/71 (85) 93 05/14/17 00:38 95 05/14/17 00:00 98.7 82 17 117/68 (84) 93 05/14/17 00:00 80 05/13/17 20:00 67 05/13/17 20:00 97.9 73 13 118/64 (82) 94 05/13/17 18:00 68 05/13/17 17:15 16 05/13/17 16:00 98.5 76 17 133/76 (95) 94 05/13/17 16:00 76 05/13/17 14:00 83 05/13/17 12:00 98.0 81 16 112/67 (82) 93 05/13/17 12:00 81 05/13/17 11:45 94 21 I/O 05/13/17 05/13/17 05/13/17 05/14/17 05/14/17 05/14/17 07:00 15:00 23:00 07:00 15:00 23:00 Intake Total 300 ml 480 ml 200 ml Output Total 600 ml 600 ml Balance -300 ml 480 ml -400 ml Intake Oral 300 ml 480 ml 200 ml Output Urine Total 600 ml 600 ml # Voids 3 # Bowel Movements 0 Result Diagram: 05/11/17 0413 05/13/17 0406 Objective Remarks GENERAL: This is a well-nourished, well-developed patient Skin: No rashes or lesions CARDIOVASCULAR: Regular rate and rhythm without murmurs, gallops, or rubs. RESPIRATORY: Clear to auscultation. Breath sounds equal bilaterally. No wheezes , rales, or rhonchi. GASTROINTESTINAL: Abdomen soft, non-tender, nondistended. No guarding. MUSCULOSKELETAL: Extremities without clubbing, cyanosis, or edema. No joint tenderness, effusion, or edema noted. No calf tenderness. Negative Homans sign bilaterally. NEUROLOGICAL: Motor and sensory grossly within normal limits. Awake and alert and oriented 4. Moving all extremities Procedures none A/P Problem List: (1) Subarachnoid hemorrhage after traumatic injury without open intracranial wound, with prolonged lossof consciousness and return to pre-existing level of consciousness ICD Code: S06.6X9A - Traumatic subarachnoid hemorrhage with loss of consciousness of unspecified duration, initial encounter Status: Acute (2) Syncope ICD Code: R55 - Syncope and collapse Assessment and Plan 66-year-old male with who presented with head trauma [facility] consulted for medical management on 05/08/2017 Encephalopathy which is multifactorial from TBI, uncontrolled hypertension and meds . Resolved. Neurochecks, seizure precautions and follow up EEG which did not show seizure. Limit POWER GENERATION EQUIPMENT REPAIRER active drugs. 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 There is a nondisplaced right occipital skull bone fracture also. Stable -Repeat CT scan of the head showed There is a slight progression of these contusions as a hemorrhage without mass effect. -Confusion improved but he continues to have a headache. Headache is the same and has not worsened. Due to being sedated neurosurgeon decreased pain medication. -Management per neurosurgeon. -Will get a CT scan if confusion worsens. Neurosurgery recommends a repeat head CT in 2 weeks for follow-up -PT is following. Accelerated hypertension. -Resolved continue lisinopril to 20 milligrams twice a day, Norvasc 5 mg twice a day and hydralazine 50 mg 3 times a day and as needed IV Vasotec and clonidine. BP much improved Questionable syncope -Patient was found intoxicated with multiple substance. Cardiac workup was done which showed a concerning nuclear stress test with ischemia in the septum, inferior lateral wall and apex. Material Planning Analyst consulted stated that patient is not a candidate for left heart catheterization due to recent intracranial bleed. He is asymptomatic. -Urine drug screen was positive for alcohol, cannabinoids and opioids. -Material Planning Analyst recommends a 24-hour Holter monitor as outpatient. -Patient was also started on a statin. Neurosurgery has cleared patient for aspirin. Unable to start beta katiana secondary to bradycardia -Echo he had a EF of 55-60%. Anorexia -Continue with heart healthy diet and Ensure. -jewelry consultant consulted. Noncompliant. Counseled DVT prophylaxis -SCDs -Anticoagulations per primary team. Discharge Planning Stable for transfer to floor and discharge. Patient advised to get out of bed all day with assistance. Refer to [place] or [facility] Davis Gomez MD May 14, 2017 10:53
--- NOTE | 2017-05-14 10:53 | HHI.PR ---
Subjective Remarks Follow-up hypertension and encephalopathy. BP well controlled. He is now awake and alert and oriented 4. Resolving headache. Seen with . Discussed with RN Objective Vitals Vital Signs Date Time Temp Pulse Resp B/P (MAP) Pulse Ox O2 Delivery O2 Flow Rate FiO2 05/14/17 08:00 98.1 70 11 140/82 (101) 94 05/14/17 08:00 70 05/14/17 04:00 71 05/14/17 04:00 98.2 62 22 113/71 (85) 93 05/14/17 00:38 95 05/14/17 00:00 98.7 82 17 117/68 (84) 93 05/14/17 00:00 80 05/13/17 20:00 67 05/13/17 20:00 97.9 73 13 118/64 (82) 94 05/13/17 18:00 68 05/13/17 17:15 16 05/13/17 16:00 98.5 76 17 133/76 (95) 94 05/13/17 16:00 76 05/13/17 14:00 83 05/13/17 12:00 98.0 81 16 112/67 (82) 93 05/13/17 12:00 81 05/13/17 11:45 94 21 I/O 05/13/17 05/13/17 05/13/17 05/14/17 05/14/17 05/14/17 07:00 15:00 23:00 07:00 15:00 23:00 Intake Total 300 ml 480 ml 200 ml Output Total 600 ml 600 ml Balance -300 ml 480 ml -400 ml Intake Oral 300 ml 480 ml 200 ml Output Urine Total 600 ml 600 ml # Voids 3 # Bowel Movements 0 Result Diagram: 05/11/17 0413 05/13/17 0406 Objective Remarks GENERAL: This is a well-nourished, well-developed patient Skin: No rashes or lesions CARDIOVASCULAR: Regular rate and rhythm without murmurs, gallops, or rubs. RESPIRATORY: Clear to auscultation. Breath sounds equal bilaterally. No wheezes , rales, or rhonchi. GASTROINTESTINAL: Abdomen soft, non-tender, nondistended. No guarding. MUSCULOSKELETAL: Extremities without clubbing, cyanosis, or edema. No joint tenderness, effusion, or edema noted. No calf tenderness. Negative Homans sign bilaterally. NEUROLOGICAL: Motor and sensory grossly within normal limits. Awake and alert and oriented 4. Moving all extremities Procedures none A/P Problem List: (1) Subarachnoid hemorrhage after traumatic injury without open intracranial wound, with prolonged lossof consciousness and return to pre-existing level of consciousness ICD Code: S06.6X9A - Traumatic subarachnoid hemorrhage with loss of consciousness of unspecified duration, initial encounter Status: Acute (2) Syncope ICD Code: R55 - Syncope and collapse Assessment and Plan 66-year-old male with who presented with head trauma [facility] consulted for medical management on 05/08/2017 Encephalopathy which is multifactorial from TBI, uncontrolled hypertension and meds . Resolved. Neurochecks, seizure precautions and follow up EEG which did not show seizure. Limit CHICK ROOM SUPERVISOR active drugs. 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 There is a nondisplaced right occipital skull bone fracture also. Stable -Repeat CT scan of the head showed There is a slight progression of these contusions as a hemorrhage without mass effect. -Confusion improved but he continues to have a headache. Headache is the same and has not worsened. Due to being sedated neurosurgeon decreased pain medication. -Management per neurosurgeon. -Will get a CT scan if confusion worsens. Neurosurgery recommends a repeat head CT in 2 weeks for follow-up -PT is following. Accelerated hypertension. -Resolved continue lisinopril to 20 milligrams twice a day, Norvasc 5 mg twice a day and hydralazine 50 mg 3 times a day and as needed IV Vasotec and clonidine. BP much improved Questionable syncope -Patient was found intoxicated with multiple substance. Cardiac workup was done which showed a concerning nuclear stress test with ischemia in the septum, inferior lateral wall and apex. Cyber Engineer consulted stated that patient is not a candidate for left heart catheterization due to recent intracranial bleed. He is asymptomatic. -Urine drug screen was positive for alcohol, cannabinoids and opioids. -Cyber Engineer recommends a 24-hour Holter monitor as outpatient. -Patient was also started on a statin. Neurosurgery has cleared patient for aspirin. Unable to start beta katiana secondary to bradycardia -Echo he had a EF of 55-60%. Anorexia -Continue with heart healthy diet and Ensure. -instructor modeling consulted. Noncompliant. Counseled DVT prophylaxis -SCDs -Anticoagulations per primary team. Discharge Planning Stable for transfer to floor and discharge. Patient advised to get out of bed all day with assistance. Refer to [place] or [facility] Davis Gomez MD May 14, 2017 10:53
[2017-05-14] MEDS: CITALOPRAM HYDROBROMIDE 20 MG TAB PO SCH (22:00)
[2017-05-14] MEDS: ACETAMINOPHEN/HYDROcodone 325 MG/5 MG TAB PO PRN (22:05)
[2017-05-15] VITALS: BP 118/71; PULSE 89; RESP 18; TEMP 98.4; O2SAT 93
[2017-05-15] MEDS: ACETAMINOPHEN/HYDROcodone 325 MG/10 MG TAB PO PRN ×2 (02:01→09:01)
[2017-05-15 04:00] VITALS: BP 106/51; PULSE 73; RESP 16; TEMP 97.5; O2SAT 95
[2017-05-15] MEDS: amLODIPine BESYLATE 5 MG TAB PO SCH ×2 (06:42→17:23)
[2017-05-15] MEDS: hydrALAZINE HCL 50 MG TAB PO SCH ×2 (06:42→13:16)
[2017-05-15] MEDS: SODIUM CHLORIDE 0.9% FLUSH 10 ML FLUSH IV FLUSH SCH (07:40)
[2017-05-15] MEDS ORDERED: HYDR-3800 PO (07:44)
[2017-05-15] MEDS ORDERED: AMLO5 PO (07:44)
[2017-05-15] MEDS ORDERED: LISI-515 PO ×2 (07:44)
[2017-05-15 08:00] VITALS: BP 119/73; PULSE 70; RESP 18; TEMP 97.5; O2SAT 95
[2017-05-15] MEDS: POLYETHYLENE GLYCOL 17 GM PKG PO SCH (08:55)
[2017-05-15] MEDS: ATORVASTATIN 20 MG TAB PO SCH (08:55)
[2017-05-15] MEDS: PANTOPRAZOLE SOD 40 MG DELAYED RELEASE TAB PO SCH (08:55)
[2017-05-15] MEDS: DOCUSATE SODIUM 50 MG/SENNA 8.6 MG TAB PO SCH (08:55)
[2017-05-15] MEDS: levETIRAcetam 500 MG TAB PO SCH (08:55)
[2017-05-15] MEDS: LISINOPRIL 20 MG TAB PO SCH (08:56)
[2017-05-15] MEDS: ASPIRIN EC 81 MG TABEC PO SCH (08:56)
[2017-05-15] MEDS: GABAPENTIN 100 MG CAP PO SCH (08:56)
[2017-05-15] MEDS: BACITRACIN TOP OINT 15 GM TUBE TOP SCH (08:56)
[2017-05-15 12:00] VITALS: BP 120/69; PULSE 82; RESP 18; TEMP 98.2; O2SAT 95
--- NOTE | 2017-05-15 12:49 | HHI.PR ---
Subjective Remarks Follow-up hypertension and encephalopathy. BP much improved noted the hydralazine doses not given secondary to hold parameters for the past 2 days except last night. Denies headache or dizziness. not happy because of several reasons still awaiting [facility] to accept patient, patient has not eaten breakfast and lunch and has not been out of bed. Concerns of discussed with nursing staff Objective Vitals Vital Signs Date Time Temp Pulse Resp B/P (MAP) Pulse Ox O2 Delivery O2 Flow Rate FiO2 05/15/17 12:00 98.2 82 18 120/69 (86) 95 05/15/17 08:00 97.5 70 18 119/73 (88) 95 05/15/17 04:00 97.5 73 16 106/51 (69) 95 05/15/17 00:00 98.4 89 18 118/71 (87) 93 05/14/17 20:00 99.6 91 16 124/64 (84) 93 05/14/17 16:00 98.5 69 20 120/69 (86) 94 I/O 05/14/17 05/14/17 05/14/17 05/15/17 05/15/17 05/15/17 07:00 15:00 23:00 07:00 15:00 23:00 Intake Total 200 ml Output Total 600 ml Balance -400 ml Intake Oral 200 ml Output Urine Total 600 ml Result Diagram: 05/11/17 0413 05/13/17 0406 Objective Remarks GENERAL: This is a well-nourished, well-developed patient Skin: No rashes or lesions CARDIOVASCULAR: Regular rate and rhythm without murmurs, gallops, or rubs. RESPIRATORY: Clear to auscultation. Breath sounds equal bilaterally. No wheezes , rales, or rhonchi. GASTROINTESTINAL: Abdomen soft, non-tender, nondistended. No guarding. MUSCULOSKELETAL: Extremities without clubbing, cyanosis, or edema. No joint tenderness, effusion, or edema noted. No calf tenderness. Negative Homans sign bilaterally. NEUROLOGICAL: Motor and sensory grossly within normal limits. Awake and alert and oriented 4. Moving all extremities No significant change in PE from previous Procedures none A/P Problem List: (1) Subarachnoid hemorrhage after traumatic injury without open intracranial wound, with prolonged lossof consciousness and return to pre-existing level of consciousness ICD Code: S06.6X9A - Traumatic subarachnoid hemorrhage with loss of consciousness of unspecified duration, initial encounter Status: Acute (2) Syncope ICD Code: R55 - Syncope and collapse Assessment and Plan 66-year-old male with who presented with head trauma [facility] consulted for medical management on 05/08/2017 Encephalopathy which is multifactorial from TBI, uncontrolled hypertension and meds . Resolved. Neurochecks, seizure precautions and follow up EEG which did not show seizure. Limit PROFESSIONAL SERVICES MANAGER active drugs. 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 There is a nondisplaced right occipital skull bone fracture also. Stable -Repeat CT scan of the head showed There is a slight progression of these contusions as a hemorrhage without mass effect. -Confusion improved but he continues to have a headache. Headache is the same and has not worsened. Due to being sedated neurosurgeon decreased pain medication. -Management per neurosurgeon. -Will get a CT scan if confusion worsens. Neurosurgery recommends a repeat head CT in 2 weeks for follow-up -PT is following. Accelerated hypertension. -Resolved continue lisinopril to 20 milligrams twice a day, Norvasc 5 mg twice a day and hydralazine 50 mg 3 times a day and as needed IV Vasotec and clonidine. BP much improved consider stopping hydralazine which has not been given for the past 2 days except last night. Continue to monitor Questionable syncope -Patient was found intoxicated with multiple substance. Cardiac workup was done which showed a concerning nuclear stress test with ischemia in the septum, inferior lateral wall and apex. Leveler consulted stated that patient is not a candidate for left heart catheterization due to recent intracranial bleed. He is asymptomatic. -Urine drug screen was positive for alcohol, cannabinoids and opioids. -Leveler recommends a 24-hour Holter monitor as outpatient. -Patient was also started on a statin. Neurosurgery has cleared patient for aspirin. Unable to start beta katiana secondary to bradycardia -Echo he had a EF of 55-60%. Anorexia -Continue with heart healthy diet and Ensure. -supervisor customer services consulted. Noncompliant. Counseled DVT prophylaxis -SCDs -Anticoagulations per primary team. Discharge Planning Stable for discharge from medical standpoint. Discussed with nursing staff to assist with meals and ambulation in the hallway Davis Gomez MD May 15, 2017 12:49
--- NOTE | 2017-05-15 12:49 | HHI.PR ---
Subjective Remarks Follow-up hypertension and encephalopathy. BP much improved noted the hydralazine doses not given secondary to hold parameters for the past 2 days except last night. Denies headache or dizziness. not happy because of several reasons still awaiting [facility] to accept patient, patient has not eaten breakfast and lunch and has not been out of bed. Concerns of discussed with nursing staff Objective Vitals Vital Signs Date Time Temp Pulse Resp B/P (MAP) Pulse Ox O2 Delivery O2 Flow Rate FiO2 05/15/17 12:00 98.2 82 18 120/69 (86) 95 05/15/17 08:00 97.5 70 18 119/73 (88) 95 05/15/17 04:00 97.5 73 16 106/51 (69) 95 05/15/17 00:00 98.4 89 18 118/71 (87) 93 05/14/17 20:00 99.6 91 16 124/64 (84) 93 05/14/17 16:00 98.5 69 20 120/69 (86) 94 I/O 05/14/17 05/14/17 05/14/17 05/15/17 05/15/17 05/15/17 07:00 15:00 23:00 07:00 15:00 23:00 Intake Total 200 ml Output Total 600 ml Balance -400 ml Intake Oral 200 ml Output Urine Total 600 ml Result Diagram: 05/11/17 0413 05/13/17 0406 Objective Remarks GENERAL: This is a well-nourished, well-developed patient Skin: No rashes or lesions CARDIOVASCULAR: Regular rate and rhythm without murmurs, gallops, or rubs. RESPIRATORY: Clear to auscultation. Breath sounds equal bilaterally. No wheezes , rales, or rhonchi. GASTROINTESTINAL: Abdomen soft, non-tender, nondistended. No guarding. MUSCULOSKELETAL: Extremities without clubbing, cyanosis, or edema. No joint tenderness, effusion, or edema noted. No calf tenderness. Negative Homans sign bilaterally. NEUROLOGICAL: Motor and sensory grossly within normal limits. Awake and alert and oriented 4. Moving all extremities No significant change in PE from previous Procedures none A/P Problem List: (1) Subarachnoid hemorrhage after traumatic injury without open intracranial wound, with prolonged lossof consciousness and return to pre-existing level of consciousness ICD Code: S06.6X9A - Traumatic subarachnoid hemorrhage with loss of consciousness of unspecified duration, initial encounter Status: Acute (2) Syncope ICD Code: R55 - Syncope and collapse Assessment and Plan 66-year-old male with who presented with head trauma [facility] consulted for medical management on 05/08/2017 Encephalopathy which is multifactorial from TBI, uncontrolled hypertension and meds . Resolved. Neurochecks, seizure precautions and follow up EEG which did not show seizure. Limit HOUSEHOLD ASSISTANT active drugs. 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 There is a nondisplaced right occipital skull bone fracture also. Stable -Repeat CT scan of the head showed There is a slight progression of these contusions as a hemorrhage without mass effect. -Confusion improved but he continues to have a headache. Headache is the same and has not worsened. Due to being sedated neurosurgeon decreased pain medication. -Management per neurosurgeon. -Will get a CT scan if confusion worsens. Neurosurgery recommends a repeat head CT in 2 weeks for follow-up -PT is following. Accelerated hypertension. -Resolved continue lisinopril to 20 milligrams twice a day, Norvasc 5 mg twice a day and hydralazine 50 mg 3 times a day and as needed IV Vasotec and clonidine. BP much improved consider stopping hydralazine which has not been given for the past 2 days except last night. Continue to monitor Questionable syncope -Patient was found intoxicated with multiple substance. Cardiac workup was done which showed a concerning nuclear stress test with ischemia in the septum, inferior lateral wall and apex. Port Patrol Officer consulted stated that patient is not a candidate for left heart catheterization due to recent intracranial bleed. He is asymptomatic. -Urine drug screen was positive for alcohol, cannabinoids and opioids. -Port Patrol Officer recommends a 24-hour Holter monitor as outpatient. -Patient was also started on a statin. Neurosurgery has cleared patient for aspirin. Unable to start beta katiana secondary to bradycardia -Echo he had a EF of 55-60%. Anorexia -Continue with heart healthy diet and Ensure. -financial supervisor consulted. Noncompliant. Counseled DVT prophylaxis -SCDs -Anticoagulations per primary team. Discharge Planning Stable for discharge from medical standpoint. Discussed with nursing staff to assist with meals and ambulation in the hallway Davis Gomez MD May 15, 2017 12:49
--- NOTE | 2017-05-15 12:49 | HHI.PR ---
Subjective Remarks Follow-up hypertension and encephalopathy. BP much improved noted the hydralazine doses not given secondary to hold parameters for the past 2 days except last night. Denies headache or dizziness. not happy because of several reasons still awaiting [facility] to accept patient, patient has not eaten breakfast and lunch and has not been out of bed. Concerns of discussed with nursing staff Objective Vitals Vital Signs Date Time Temp Pulse Resp B/P (MAP) Pulse Ox O2 Delivery O2 Flow Rate FiO2 05/15/17 12:00 98.2 82 18 120/69 (86) 95 05/15/17 08:00 97.5 70 18 119/73 (88) 95 05/15/17 04:00 97.5 73 16 106/51 (69) 95 05/15/17 00:00 98.4 89 18 118/71 (87) 93 05/14/17 20:00 99.6 91 16 124/64 (84) 93 05/14/17 16:00 98.5 69 20 120/69 (86) 94 I/O 05/14/17 05/14/17 05/14/17 05/15/17 05/15/17 05/15/17 07:00 15:00 23:00 07:00 15:00 23:00 Intake Total 200 ml Output Total 600 ml Balance -400 ml Intake Oral 200 ml Output Urine Total 600 ml Result Diagram: 05/11/17 0413 05/13/17 0406 Objective Remarks GENERAL: This is a well-nourished, well-developed patient Skin: No rashes or lesions CARDIOVASCULAR: Regular rate and rhythm without murmurs, gallops, or rubs. RESPIRATORY: Clear to auscultation. Breath sounds equal bilaterally. No wheezes , rales, or rhonchi. GASTROINTESTINAL: Abdomen soft, non-tender, nondistended. No guarding. MUSCULOSKELETAL: Extremities without clubbing, cyanosis, or edema. No joint tenderness, effusion, or edema noted. No calf tenderness. Negative Homans sign bilaterally. NEUROLOGICAL: Motor and sensory grossly within normal limits. Awake and alert and oriented 4. Moving all extremities No significant change in PE from previous Procedures none A/P Problem List: (1) Subarachnoid hemorrhage after traumatic injury without open intracranial wound, with prolonged lossof consciousness and return to pre-existing level of consciousness ICD Code: S06.6X9A - Traumatic subarachnoid hemorrhage with loss of consciousness of unspecified duration, initial encounter Status: Acute (2) Syncope ICD Code: R55 - Syncope and collapse Assessment and Plan 66-year-old male with who presented with head trauma [facility] consulted for medical management on 05/08/2017 Encephalopathy which is multifactorial from TBI, uncontrolled hypertension and meds . Resolved. Neurochecks, seizure precautions and follow up EEG which did not show seizure. Limit PUBLIC WORKS MANAGER active drugs. 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 There is a nondisplaced right occipital skull bone fracture also. Stable -Repeat CT scan of the head showed There is a slight progression of these contusions as a hemorrhage without mass effect. -Confusion improved but he continues to have a headache. Headache is the same and has not worsened. Due to being sedated neurosurgeon decreased pain medication. -Management per neurosurgeon. -Will get a CT scan if confusion worsens. Neurosurgery recommends a repeat head CT in 2 weeks for follow-up -PT is following. Accelerated hypertension. -Resolved continue lisinopril to 20 milligrams twice a day, Norvasc 5 mg twice a day and hydralazine 50 mg 3 times a day and as needed IV Vasotec and clonidine. BP much improved consider stopping hydralazine which has not been given for the past 2 days except last night. Continue to monitor Questionable syncope -Patient was found intoxicated with multiple substance. Cardiac workup was done which showed a concerning nuclear stress test with ischemia in the septum, inferior lateral wall and apex. Oral Surgery Technician consulted stated that patient is not a candidate for left heart catheterization due to recent intracranial bleed. He is asymptomatic. -Urine drug screen was positive for alcohol, cannabinoids and opioids. -Oral Surgery Technician recommends a 24-hour Holter monitor as outpatient. -Patient was also started on a statin. Neurosurgery has cleared patient for aspirin. Unable to start beta katiana secondary to bradycardia -Echo he had a EF of 55-60%. Anorexia -Continue with heart healthy diet and Ensure. -inverter and clipper consulted. Noncompliant. Counseled DVT prophylaxis -SCDs -Anticoagulations per primary team. Discharge Planning Stable for discharge from medical standpoint. Discussed with nursing staff to assist with meals and ambulation in the hallway Davis Gomez MD May 15, 2017 12:49
[2017-05-15 16:00] VITALS: BP 121/64; PULSE 74; RESP 16; TEMP 98.2; O2SAT 94
--- NOTE | 2017-05-15 16:25 | HHI.NSPN ---
History Chief Complaint: Slight headache Interval History 66-year-old gentleman who presented to [facility] emergency room apparently he was drinking beer and relates that he passed out and fell and struck his head on concrete floor. Complains of headache although at this point denies any nausea or vomiting, double vision, or blurred vision. Chronic neck discomfort which is not worse. CT scan of the head obtained initially around midnight ratios the right small cerebellar hemisphere contusion along with multiple left frontal polar area contusions and traumatic subarachnoid hemorrhage in the frontal aspect and lateral Sylvian fissure aspect. He also has a nondisplaced right occipital bone fracture. CT of the cervical spine reveals extensive degenerate changes without any fractures. He was transfer to [facility] and has been monitored and neurologically remained stable. A followup CT scan this morning reveals progression of the contusions involving the left frontal lobe along with a right cerebellar hemisphere and left the insula with a stable left frontal polar 6 mm subdural without any mass effect or midline shift. 05/04: Pt awake and alert. Denies headache, nausea, vomiting, chest pain, sob , weakness. Pt agitated this morning. Pt and states he didn't drink enough to pass out and that he has had 1 near syncopal episode and 2 syncopal episodes in the last year and has had evaluation at [facility] in [place] and states nothing was found although doesn't recall seeing a Terminal System Operator and states he never followed up with anyone. He states he doesn't see a pcp. 05/05: Pt awakens to voice. Complains of headache. No nausea or vomiting. Had stress test this morning. No chest pain or sob. 05/06: Pt awakens to voice. Denies headache currently. No nausea or vomiting. Follows commands. No chest pain or sob. RN states pt was confused earlier and tried to leave. 05/14: Pt awakens to voice. Complains of frontal headache. No n/v. No paresthesias in face or extremities. Following commands well. 05/15: Patient complains of frontal headache. No nausea or vomiting. States the headaches are improving. No paresthesias in the extremity's. Mild intermittent confusion. Review of Systems General: Negative for: fever, chills, insomnia Respiratory: Negative for: shortness of breath, cough, sputum Cardiovascular: Negative for: chest pain Gastrointestinal: Negative for: nausea, vomitting, diarrhea, constipation Exam Results Vital Signs Date Time Temp Pulse Resp B/P (MAP) Pulse Ox O2 Delivery O2 Flow Rate FiO2 05/15/17 12:00 98.2 82 18 120/69 (86) 95 05/13/17 11:45 21 Physical Examination GENERAL: Pt awakens to voice and is in NAD. EYES: Pupils equal. Sclera anicteric RESPIRATORY/CHEST: CTAB w/o W/R/R, equal excursion, nonlaboured, on RA. CARDIOVASCULAR: Regular without murmur GASTROINTESTINAL: Abdomen soft, nontender, positive bowel sounds. EXTREMITIES: LANDA w/o difficulty, NTTP, no evident deformity or clubbing, small abrasion to distal right lower leg. SKIN: Warm, dry & intact except for abrasion to the distal right lower leg healing w/o complication. NEUROLOGIC: Arouses easily to voice. Speech clear & appropriate but slow in response. Sensation is intact to light touch to all extremities. MUSCLE: Motor strength is 5/5 to all major flexion & extension muscle groups. Lab, Micro, Other Results Last Impressions Head CT 05/11/17 0600 Signed Impressions: Service Date/Time: Thursday, May 11, 2017 04:20 - CONCLUSION: Slowly resolving multifocal intracranial hemorrhage as above. Approximately 3 mm of rightward midline shift similar to before. No new bleed or other acute abnormality. Darin Nelson MD Myocardial Perfusion Scan Nuc Med 05/05/17 0000 Signed Impressions: Service Date/Time: Friday, May 05, 2017 09:29 - CONCLUSION: Several areas is suspected mild ischemia in the septum and inferior lateral wall and inferior apex. RISK CATEGORY: Intermediate (1-3%% Annual Mortality Rate) Darin Murray MD Cervical Spine CT 05/03/17 0001 Signed Impressions: Service Date/Time: April 00:14 - CONCLUSION: 1. Moderate degenerative changes as described above. There is no evidence of acute fracture. 2. Nondisplaced occipital bone fracture Phillip Torres MD Carotid Artery Ultrasound 05/03/17 0000 Signed Impressions: Service Date/Time: April 13:24 - CONCLUSION: Normal examination for a patient of this age. Keyur Jimenez MD Medical Decision Making Impression and Plan 1. 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 There is a nondisplaced right occipital skull bone fracture also. There is a slight progression of these contusions as a hemorrhage in the followup CT scan but again without mass effect. 2. It us unclear whether he had a near-syncopal episode or he fell because of the intoxication and then suffered from this traumatic brain injury. Pts states he has had 1 near syncopal episode and 2 syncopal episodes. She states he was evaluated before at [facility] and had a workup but nothing was found per pt and his . She is requesting a Cardiology evaluation. PLAN Neurosurgical stable to transfer to inpatient rehab. Pt has been cleared medically with his new bp medications. Follow up in 2 weeks with a follow up CT head no contrast. Marc Wilhelm May 15, 2017 4:25 pm
== END 2017-05-15 18:17 | DRG 82 ==
LOC: PHED 23:37 → PHEDA 05-03 00:31 → N03A 05-03 01:35 → N04A 05-14 14:31
PROVIDERS: ADMIT Neurological Surgery; ATTEND Neurological Surgery
DX: S06.6X9A Traumatic subarachnoid hemorrhage with loss of consciousness of unspecified duration, initial encounter (principal); G93.40 Encephalopathy, unspecified; E87.1 Hypo-osmolality and hyponatremia; I10 Essential (primary) hypertension; F32.9 Major depressive disorder, single episode, unspecified; M10.9 Gout, unspecified; S02.11GA Other fracture of occiput, right side, initial encounter for closed fracture; S06.5X9A Traumatic subdural hemorrhage with loss of consciousness of unspecified duration, initial encounter; W18.30XA Fall on same level, unspecified, initial encounter; F17.290 Nicotine dependence, other tobacco product, uncomplicated; S80.12XA Contusion of left lower leg, initial encounter; F10.120 Alcohol abuse with intoxication, uncomplicated; Y90.4 Blood alcohol level of 80-99 mg/100 ml; R63.0 Anorexia; R00.1 Bradycardia, unspecified; Z91.19 Patient's noncompliance with other medical treatment and regimen; Y92.828 Other wilderness area as the place of occurrence of the external cause
CPT/HCPCS: 70450; 72125; 78452; 80048; 80053; 80061; 80307; 81001; 82140; 83036; 83735; 84484; 85025; 85027; 85610; 85730; 87641; 93005; 93017; 93306; 93880; 94150; 95819; A9502; J0360; J2270; J2405; J2550; J2785; J3480; J7050

== ENCOUNTER 2017-06-14 10:20 | Day surgery (SDC) | payer OTHER ==
[~2017-06-14] VITALS: Ht 177.8 cm; Wt 82.1 kg
[~2017-06-14 10:20] MED LIST changes: +AMLO5 PO; +ASPI1TAB56 PO; -ASPI325T PO; +ATOR20TA15 PO; +BUTATAB6 PO; +CELE20TA PO; +GABA100C4 PO; +HYDR-3583 PO; +LEVE500 PO; +LISI-519 PO; +PANT20 PO; +SENN1TAB PO; +THERTAB15 PO; +THIA100 PO; -TRAM50TA PO
[2017-06-14] MEDS ORDERED: IOHEXOL 350 MG/ML 100 ML BTL (for Cath Lab) OTHER ONE (10:21)
[2017-06-14 10:30] VITALS: BP 135/91; PULSE 82; RESP 18; TEMP 98.2; O2SAT 96
[2017-06-14] MEDS ORDERED: NS 1000P @30 MLS/HR (KVO) IV SCH (10:45)
[2017-06-14] MEDS ORDERED: SODIUM CHLOR 0.9% 1000 ML INJ 1,000 ML IV SCH (10:52)
[2017-06-14] MEDS ORDERED: ASPIRIN 325 MG TAB PO SCH (11:00)
[2017-06-14] MEDS ORDERED: TYLE325T PO (11:08)
[2017-06-14 11:12] LABS: AUTOMATED NEUTROPHIL # 4.8 TH/MM3 (1.8-7.7); BASOPHIL % 0.4 % (0.0-2.0); EOSINOPHIL # 0.1 TH/MM3 (0-0.4); EOSINOPHIL % 1.3 % (0.0-4.0); HEMATOCRIT 41.7 % (39.0-51.0); HEMO FLAGS DIFF FINAL; LYMPH % 22.8 % (9.0-44.0); LYMPHOCYTE # 1.6 TH/MM3 (1.0-4.8); MEAN CELL VOLUME 93.6 FL (80.0-100.0); MEAN CORPUSCULAR HEMOGLOBIN 32.3 PG (27.0-34.0); MEAN CORPUSCULAR HGB CONC 34.5 % (32.0-36.0); MONO % 7.9 % (0.0-8.0); NEUT % 67.6 % (16.0-70.0); PLATELET COUNT 188 TH/MM3 (150-450); RED BLOOD COUNT 4.46 MIL/MM3 (4.50-5.90); RED CELL DISTRIBUTION WIDTH 13.8 % (11.6-17.2)
[2017-06-14 11:17] LABS: APTT (PATIENT) 27.8 SEC (24.3-30.1); INTERNATIONAL NORMALIZED RATIO 1.1 RATIO; PROTHROMBIN TIME - PATIENT 10.9 SEC (9.8-11.6)
[2017-06-14 11:22] LABS: BICARBONATE 25.7 MEQ/L (21.0-32.0); POTASSIUM 3.8 MEQ/L (3.5-5.1)
[2017-06-14] MEDS ORDERED: HEPARIN-NS/PF INJ 1,000 ML ONE (12:26)
[2017-06-14] MEDS ORDERED: MIDAZOLAM HCL 5 MG/5 ML VIAL ONE (12:26)
--- NOTE | 2017-06-14 14:02 | CATHPROC ---
[facility] HIS Report Study Information Study Number Admission Scheduled Start Study Start [id number] Jun 14 2017 10:20AM 06/14/2017 Jun 14 2017 12:09PM [facility] Cardiac Catheterization Admit Source Facility Department Other [facility] - Transcription Physician and Clinical Staff Initial MD Schulz, Yuli Customer Contact Specialist Neela Moore RN Customer Contact Specialist Phillip Medrano Recorder Gildardo Barcenas RCIS(BS) Scrub Stephany Mejía,RT(R) Procedures Performed Procedure Location (Site) Vessel Name Coronary Angiograms LCA Left Coronary Coronary Angiograms RCA Right Coronary L Heart Cath Equipment Time Port Cdl A Driver Description Size Mfg Part Number Used/Scraped TRANSDUCER, TRUWAVE [id number] 12:10 DeviceAuthority * Used W/STOCKCOCK *[id number] INTRODUCER SET, 12:10 [employer] FR 5 [id number] *[id number] Used MICROPUNCTURE, STIFFENED 538-476 *[id number] 538-420 *[id number] 538-453S *[id number] 12:10 [employer] INDUSTRIES PACK, CCL CUSTOM * Used *[id number] 12:10 [employer] PACER PEN, SKIN DUAL W/ RULER * Used *[id number] 12:10 [employer] [place] WIRE, 3MMJ .035 180CM 180CM Used *[id number] PROBE COVER, STERILE [id number] 12:10 Flitto * Used ULTRASOUND W/ GEL *[id number] 12:10 [employer] MANIFOLD, 4 PORT * Used *[id number] 12:10 NYCOMED OMNIPAQUE, 350 MG, 150ML 150ML [id number] Used [id number] 12:10 [employer] BLANKET,WARM AIR CCL * Used *[id number] 12:10 [employer] MEDICAL SHEATH, FR4 TERUMO (10CM) FR 4 Used *[id number] History: Current Medications Medication Dosage/Unit Route Frequency Last Date/Time Taken ASA Statins (any) History: Risk Factors Family History of Hypertension Dyslipidemia Previous IL Previous Heart Failure Premature CAD Yes Yes Yes No No Prior Valve Prior PCI Prior CABG Surgery No No No Cerebrovascular Peripheral Artery Chronic Lung On Dialysis Diabetes Disease Disease Disease No No No No No History: Stress Tests Stress or Imaging Studies Performed Yes Standard Exercise Stress Test No Stress Echo No Stress Test SPECT Stress Test SPECT Result Yes Positive Stress Test CMR No Cardiac CTA Coronary Calcium Score No No Labs Hgb (g/dl) Hct (%) WBC (l/cumm) Platelets (thousands) 11.60-17.00 35.00-51.00 4.00-11.00 150.00-450.00 14.4 41.7 7 188 Glucose (mg/dl) BUN (mg/dl) Creatinine (mg/dl) BUN:Creatinine (1:x) 74.00-106.00 7.00-18.00 0.50-1.30 10.00-20.00 105 12 0.9 13.3 Na (meq/l) K (meq/l) 136.00-145.00 3.50-5.10 141 3.8 INR (PTT:PT) 0.90-1.10 1.1 CPK-MB (ng/ML) 0.50-3.60 Not Drawn Medication Medication Total Dose (Bolus/Oral) Medication Total Dosage/Unit 1% XYLOCAINE 20 mL FENTANYL 100 mcg VERSED 4 mg Medications (Bolus/Oral) Medication Time Given Dosage/Unit Administered By Reason VERSED 06/14/2017 1:16:00 PM 2 mg Adamy, Neela 2 mg VERSED given in lab by Neela Moore RN in Left Antecubital via Peripheral IV. Ordered by Yuli Preston. FENTANYL 06/14/2017 1:17:00 PM 50 mcg Valentiny, Neela 50 mcg FENTANYL given in lab by Neela Moore RN in Left Antecubital via Peripheral IV. Ordered by Yuli Schulz. VERSED 06/14/2017 1:20:40 PM 1 mg Adamy, Neela 1 mg VERSED given in lab by Neela Moore RN in Left Antecubital via Peripheral IV. Ordered by Yuli Preston. 1% XYLOCAINE 06/14/2017 1:20:52 PM 20 mL Yuli Schulz 20 mL 1% XYLOCAINE given in lab by Yuli Schulz in Right Groin via Subcutaneous. Ordered by Yuli Cox. FENTANYL 06/14/2017 1:21:44 PM 25 mcg Valentiny, Neela 25 mcg FENTANYL given in lab by Neela Moore RN in Left Antecubital via Peripheral IV. Ordered by Yuli Schulz. VERSED 06/14/2017 1:26:50 PM 1 mg Neela Moore 1 mg VERSED given in lab by Neela Moore RN in Left Antecubital via Peripheral IV. Ordered by Yuli Preston. FENTANYL 06/14/2017 1:27:17 PM 25 mcg Neela Moore 25 mcg FENTANYL given in lab by Neela Moore RN in Left Antecubital via Peripheral IV. Ordered by Yuli Schulz. Medication (Drip) Medication Time Given Dosage/Unit Concentration/Unit Diluent (ml) Solution 06/14/2017 12:22:32 IV Solutions 0 mL (IV) 500 NaCl .9 PM Patient arrived on IV Solutions in Left Antecubital via Peripheral IV. Pump/Drip Flow = 20 ml/hr usin g NaCl .9. Initial Case Assessment Cardiovascular HR Rhythm NIBP Chest Pain 67 SR 143/89 0 Edema Present Skin color Skin None Normal Warm Dry Circulatory - Right Pulses Dorsalis Pedis Femoral 2 2 Scale (0,1,2,3,4,d) Circulatory - Left Pulses Dorsalis Pedis Femoral 2 2 Scale (0,1,2,3,4,d) Circulatory - Lower Extremities Color Lower Right Color Lower Left Normal Normal Neurological State Oriented to time-place- Alert Moves all extremities person Respiration - General Respiration Rate SpO2 (%) (B/min) 11 99 Final Case Assessment Cardiovascular HR Rhythm NIBP Chest Pain 67 SR 143/89 0 Edema Present Skin color Skin None Normal Warm Dry Circulatory - Right Pulses Dorsalis Pedis Femoral 2 2 Scale (0,1,2,3,4,d) Circulatory - Left Pulses Dorsalis Pedis Femoral 2 2 Scale (0,1,2,3,4,d) Circulatory - Lower Extremities Color Lower Right Color Lower Left Normal Normal Neurological State Oriented to time-place- Alert Moves all extremities person Respiration - General Respiration Rate SpO2 (%) (B/min) 11 99 Chronological Log Time Study Chronological Log 12:22:19 Patient arrived via Bed. 12:22:20 Patient Name, D.O.B, / Armband Verified By R.N. 12:22:20 Consent signed by the physician and the patient and verified by the Transcription staff. 12:22:21 Pre-op and post- op instructions given; patient acknowledges understanding of instructions. 12:: Verbal Stimulation=2 Physical Stimulation=2 Airway=2 Respiration=2 TOTAL=8. (0=absent, 1=li mited, 2=present) 12:22:25 Patient has been NPO for More than 6Hrs. 12:: Skin Breakdown- 12:: Patient Warmer Placed on the Table. 12:22:31 A # 20 IV was noted in the Antecubital (left). Grade = 0 12:22:32 Patient arrived on IV Solutions in Left Antecubital via Peripheral IV. Pump/Drip Flow = 20 ml/hr using NaCl .9. 12:22:33 History and physical on the chart or being dictated. Assessment: Initial Case, HR=67 BPM, Rhythm=SR, GUTT=809/89 mmhg, Chest Pain=0, Edema=None, Col or=Normal, Skin = Warm, Dry Right Pulses: Sushil Ped=2, Femoral=2 Left Pulses: Sushil Ped=2, Femoral=2 12:22:34 Lower Right Extremities: Color=Normal Lower Left Extremities: Color=Normal Neurological: State=Alert, Ox3, LANDA Respiration: Resp=11 B/min, SpO2=99 % Vitals capture started with the following parameters, Patient=Adult, Interval=5 min, Initial Pr dirkvq=772 mmHg, 12:25:53 Deflation Rate=5 mmHg, Cuff placed on Left Arm 12:26:56 HR=76 bpm, CIQM=151/94 mmhg, SpO2=98.0 %, Resp=13 B/min, Pain=0, Gail=10, Duval=2 12:31:26 HR=67 bpm, WBJS=788/87 mmhg, SpO2=99.0 %, Resp=12 B/min, Pain=0, Gail=10, Duval=2 12:35:58 Reference ECG taken 12:36:25 HR=62 bpm, HSSI=281/89 mmhg, SpO2=98.0 %, Resp=9 B/min, Pain=0, Gail=10, Duval=2 12:39:44 Pressure channel 1 zeroed. 12:41:28 HR=65 bpm, FGSS=689/86 mmhg, SpO2=98.0 %, Resp=13 B/min, Pain=0, Gail=10, Duval=2 12:42:30 Bilateral groins prepped with 2% chlorhexidine, and draped after a 3 minute waiting time. 12:42:35 paged 12:46:27 HR=64 bpm, UAJY=652/81 mmhg, SpO2=98.0 %, Resp=7 B/min, Pain=0, Gail=10, Duval=2 12:51:24 HR=65 bpm, ZBJJ=116/84 mmhg, SpO2=98.0 %, Resp=0 B/min, Pain=0, Gail=10, Duval=2 12:56:23 HR=65 bpm, ACCZ=387/83 mmhg, SpO2=99.0 %, Resp=10 B/min, Pain=0, Gail=10, Duval=2 13:01:26 HR=69 bpm, VAZX=588/79 mmhg, SpO2=98.0 %, Resp=6 B/min, Pain=0, Gail=10, Duval=2 13:03:21 MD responded 13:07:02 HR=68 bpm, VTIZ=425/85 mmhg, SpO2=98.0 %, Resp=10 B/min, Pain=0, Gail=10, Duval=2 13:11:26 HR=69 bpm, NRZR=253/83 mmhg, SpO2=98.0 %, Resp=8 B/min, Pain=0, Gail=10, Duval=2 13:16:00 2 mg VERSED given in lab by Neela Moore, ALBIN in Left Antecubital via Peripheral IV. Orde red by Yuli Schulz. 13:16:25 HR=67 bpm, RWYM=722/85 mmhg, SpO2=99.0 %, Resp=9 B/min, Pain=0, Gail=10, Duval=2 13:17:00 MD arrived. 50 mcg FENTANYL given in lab by Neela Moore, ALBIN in Left Antecubital via Peripheral IV. Orde red by Zeus, 13:17:00 Yuli. Time Out. Correct patient, correct procedure, correct physician, power injector loaded with con trast with surgical team 13:19:22 present. Time Out Concurred by MD and individual staff in procedure. 13:20:40 1 mg VERSED given in lab by Neela Moore RN in Left Antecubital via Peripheral IV. Orde red by Yuli Schulz. 20 mL 1% XYLOCAINE given in lab by Yuli Schulz in Right Groin via Subcutaneous. Ordered by Zeus, 13:20:52 Yuli. 13:21:01 Access site was Right Femoral Artery. A INTRODUCER SET, MICROPUNCTURE, STIFFENED FR 5 was advanced into the Fem Art (right) using the ::07 Percutaneous technique. A SHEATH, FR4 TERUMO (10CM) FR 4 was exchanged in the Fem Art (right). This was necessary in or tatiana to 13::14 accomodate a larger catheter. 13:21:30 HR=70 bpm, ZNPU=702/80 mmhg, SpO2=99.0 %, Resp=20 B/min, Pain=0, Gail=10, Duval=2 25 mcg FENTANYL given in lab by Neela Moore RN in Left Antecubital via Peripheral IV. Orde red by Zeus, 13:21:44 Yuli. A JL 4.0 INFINITI CATHETER FR 4 was advanced over a wire. OMNIPAQUE, 350 MG, 150ML 150ML was us ed for 13:23:30 injections. 13:24:40 The LCA was injected and visualized at various angles. OMNIPAQUE, 350 MG, 150ML 150ML used . Recorded Pressure: Ao, HR=72, Condition=Condition 1 13:25:59 (Aorta) Ao 130/82/103 13:26:25 HR=70 bpm, GDRH=449/80 mmhg, SpO2=98.0 %, Resp=17 B/min, Pain=0, Gail=10, Duval=2 13:26:50 1 mg VERSED given in lab by Neela Moore, ALBIN in Left Antecubital via Peripheral IV. Orde red by Yuli Schulz. 25 mcg FENTANYL given in lab by Neela Moore RN in Left Antecubital via Peripheral IV. Orde red by Zeus, 13:27:17 [place]. 13:28:30 Catheter was removed A 3DRC INFINITI CATHETER FR 4 was advanced over a wire. OMNIPAQUE, 350 MG, 150ML 150ML was used for 13:28:32 injections. 13:30:00 The RCA was injected and visualized at various angles. OMNIPAQUE, 350 MG, 150ML 150ML used . 13:30:18 Catheter was removed A PIGTAIL ANG. INFINITI CATHETER FR 4 was advanced over a wire. OMNIPAQUE, 350 MG, 150ML 150ML was used 13:30:20 for injections. 13:31:26 HR=76 bpm, FRQL=376/76 mmhg, SpO2=98.0 %, Resp=11 B/min, Pain=0, Gail=10, Duval=2 Recorded Pressure: LV, HR=77, Condition=Condition 1 13:35:16 (Left Ventricle) LV 84/22/26 Recorded Pressure: LV, Ao, HR=78, Condition=Condition 1 13:35:19 (Left Ventricle) LV 117/10/16, (Aorta) Ao 121/71/93 13:36:28 HR=75 bpm, DPHN=080/80 mmhg, SpO2=99.0 %, Resp=13 B/min, Pain=0, Gail=10, Duval=2 13:37:00 Case End Assessment: Final Case, HR=67 BPM, Rhythm=SR, POCS=290/89 mmhg, Chest Pain=0, Edema=None, Color =Normal, Skin = Warm, Dry Right Pulses: Sushil Ped=2, Femoral=2 Left Pulses: Sushil Ped=2, Femoral=2 13:39:53 Lower Right Extremities: Color=Normal Lower Left Extremities: Color=Normal Neurological: State=Alert, Ox3, LANDA Respiration: Resp=11 B/min, SpO2=99 % 13:40:27 Sterile dressing applied to site 13:40:29 No case complications noted. 13:40:30 Cine recording checked. 13:40:39 Sheath removed; pressure applied to access site. 13:41:29 HR=73 bpm, XIFF=836/81 mmhg, SpO2=98.0 %, Resp=14 B/min, Pain=0, Gail=10, Duval=2 13:42:28 Bedside Report will be given. 13:42:30 Contrast Scanned 13:42:58 A Left Heart Cath was performed. 13:46:28 HR=73 bpm, EWKV=356/78 mmhg, SpO2=97.0 %, Resp=10 B/min, Pain=0, Gail=10, Duval=2 13:51:24 Vitals capture stopped. 13:55:20 Patient moved to stretcher End Study - Contrast Media Used In Study Contrast Total Opened (mL) Total Used (mL) Total Wasted (mL) Omnipaque 70 70 0 End Study - Maximum Contrast Load Max Contrast Load (mL) 456.1 End Study - Radiation Exposure Fluoro Time (minutes) 4.1 End Study - Patient Disposition Complications Transferred To Telemetry Bed
--- NOTE | 2017-06-14 18:20 | MP ---
cc: YULI SCHULZ MD, DR., DATE OF SURGERY 06/14/17 INDICATIONS Recent history of traumatic fall with very abnormal nuclear stress test. Heart cath recommended. CONSENT Full informed consent was obtained prior to procedure. Risks of , bleeding, myocardial infarction, perforation, aspiration, foreseen and unforeseen complications reviewed. The patient fully appeared to understand the risks. At the end of the catheterization procedure all catheters and sheaths were removed and pressure applied until hemostasis achieved. The patient was returned to his room in stable condition. FINDINGS HEMODYNAMICS The aortic pressure was 121/87 with a mean of 93. The left ventricular pressure was 4/22 with a left ventricular end-diastolic pressure of 26. There was no evidence of significant on pullback across the LV outflow tract and aortic valve. LEFT VENTRICULOGRAM The overall left ventricular ejection fraction was 60%. There was no evidence of mitral regurgitation. CORONARIES The left main is large and free of significant disease. The left anterior descending is a large vessel with a medium-sized first and second diagonal branches. 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 The circumflex vessel is a large vessel with a large first obtuse marginal branch. There was no evidence significant disease. The right coronary was a large dominant artery with a large posterior descending artery and large posterolateral branch. CONCLUSION No significant coronary artery disease, normal LV function. PLAN We will plan to discharge the patient later today. Follow up in my office in due course. Yuli Schulz MD, FRCP,[facility] RE[facility]CCA/ /1:43 PM /6:11 PM
--- NOTE | 2017-06-15 16:57 | EKG ---
Date Performed: 06/14/2017 Time Performed: 11:11:18 PTAGE: 66 years EKG: Sinus rhythm . Since previous tracing, no significant change noted Normal ECG PREVIOUS TRACING : 05/03/2017 00.35 DOCTOR: Maria Guadalupe Lares Interpretating Date/Time 06/15/2017 16:55:22
== END 2017-06-14 18:30 | disposition home or self-care (01) ==
LOC: HDOC 10:20 → HDIC 10:20 → HDOC 18:30
PROVIDERS: ATTEND Internal Medicine Cardiovascular Disease
DX: R94.39 Abnormal result of other cardiovascular function study (principal); I60.9 Nontraumatic subarachnoid hemorrhage, unspecified; I10 Essential (primary) hypertension; R55 Syncope and collapse; R51 Headache; R73.01 Impaired fasting glucose; R53.1 Weakness; Z72.0 Tobacco use; Z87.820 Personal history of traumatic brain injury
CPT/HCPCS: 80048; 85025; 85610; 85730; 93005; 93458; 99152; C1769; C1893; J1644; J2250; J3010; Q9967